=== PATIENT | female | born 1965 | race Caucasian/White ===

== ENCOUNTER 2017-04-07 12:19 | Inpatient (IN) | payer MEDICARE, MEDICAID ==
[2017-04-07 13:06] LABS: #Eosinphils 0.1 thou/uL (0.0-0.7); #Lymphocytes 2.4 thou/uL (1.20-3.40); #Monocytes 0.9 thou/uL (0.11-0.59); #Neutrophils 9.6 thou/uL (1.40-6.50); %Basophils 0.2 % (0.0-1.0); %Eosinophils 0.5 % (0.0-10.0); %Lymphocytes 18.2 % (21.0-51.0); %Monocytes 6.8 % (0.0-10.0); Hematocrit 35.7 % (36.0-47.0); Mean Platelet Volume 7.5 fL (7.4-10.4); Red Blood Cell (RBC) Count 4.12 mill/uL (4.20-5.40); White Blood Cell (WBC) Count 12.9 thou/uL (4.8-10.8)
[2017-04-07] MEDS ORDERED: Ondansetron HCl/PF 4 MG/2 ML Vial ONE (13:16)
[2017-04-07 13:29] LABS: ALT (SGPT) 25 U/L (8-55); AST (SGOT) 18 U/L (5-34); Alkaline Phosphatase 116 U/L (40-150); Anion Gap 17 mmol/L (10-20); BUN (Urea Nitrogen) 18 mg/dL (9.8-20.1); Bilirubin, Total 0.9 mg/dL (0.2-1.2); Calc. Creatinine Clearance 0 mL/min (70-130); Calcium 9.4 mg/dL (7.8-10.44); Carbon Dioxide 17 mmol/L (22-29); Chloride 106 mmol/L (98-107); Estimated GFR-MDRD 36; Globulin 3.2 g/dL (2.4-3.5); Lipase 10 U/L (8-78); Protein, Total 7.2 g/dL (6.0-8.3)
[2017-04-07 13:46] LABS: Bilirubin Negative (Negative); Blood, Urine Large (Negative); Glucose, Urine (Dipstick) 250 mg/dL (Negative); Ketone, Urine 15 mg/dL (Negative); Nitrite Negative (Negative); Protein, Urine (Dipstick) 30 mg/dL (Neg-Trace); Urobilinogen 0.2 mg/dL (0.2-1.0)
[2017-04-07 13:48] LABS: Bacteria/HPF Rare-Few HPF (None Seen); Hyaline Casts/LPF 0-3 HYALINE CAST LPF (0-3 Hyaline); RBC/HPF GREATER THAN 50-TNTC HPF (0-3)
[2017-04-07 14:16] LABS: Lactic Acid - Sepsis 2.4 mmol/L (0.5-2.2)
[2017-04-07] MEDS ORDERED: Lorazepam 2 MG/ML VIAL ONE (14:25)
[2017-04-07] MEDS ORDERED: Sodium Chloride 0.9% 100 ML ONE (14:36)
[2017-04-07] MEDS ORDERED: cefTRIAXone\\ROCEPHIN 2 GM VIAL ONE (14:37)
--- NOTE | 2017-04-07 15:09 | HP ---
PRIMARY CARE PHYSICIAN: [facility]. REASON FOR ADMISSION: Right acute pyelonephritis and sepsis. HISTORY OF PRESENT ILLNESS: A 51-year-old female with a history of diabetes type 2, who presented t o the emergency room with right-sided flank pain. The patient reports that for the last 4 days she was having urinary tract infection symptoms with increased frequency, dysuria. Last night, she was having very difficult urination because of severe burning pain. She started having right-sided flan k pain yesterday, which was rapidly gotten worse. She was also having fever. She was also having n ausea and she had 3 episodes of diarrhea last night. Her pain intensity was getting worse and that is why she decided to come to the emergency room today. In the emergency room, her urinalysis is consistent with urinary tract infection. She had CT stone protocol which showed right-sided mild hydronephrosis and right distal ureteral calcification. The patient was also having low-grade fever and she had lactic acidosis and leukocytosis. The patient w as not able to keep anything down and she was hyperventilating in the emergency room, she was meetin g sepsis criteria and that is why we decided to keep this patient in the hospital for admission. EMERGENCY ROOM COURSE: The patient was given Zofran and IV fluid prior to arrival in the emergency room by paramedics. The patient has received 2 liters of IV fluids. She is getting vancomycin, Helio ephin, Ativan 0.5 mg, and morphine 4 mg x2 dose and 4 mg Zofran was given. REVIEW OF SYSTEMS: The following complete review of systems was negative, unless otherwise mentione d in the HPI or below: Constitutional: Weight loss or gain, ability to conduct usual activities. Skin: Rash, itching. Eyes: Double vision, pain. ENT/Mouth: Nose bleeding, neck stiffness, pain, tenderness. Cardiovascular: Palpitations, dyspnea on exertion, orthopnea. Respiratory: Shortness of breath, wheezing, cough, hemoptysis, fever or night sweats. Gastrointestinal: Poor appetite, abdominal pain, heartburn, nausea, vomiting, constipation, or diar natali. Genitourinary: Urgency, frequency, dysuria, nocturia. Musculoskeletal: Pain, swelling. Neurologic/Psychiatric: Anxiety, depression. Allergy/Immunologic: Skin rash, bleeding tendency. Please see my HPI for pertinent positives and negatives. All other review of system reviewed and ne gative except as mentioned in the HPI. PAST MEDICAL HISTORY: Hypertension, diabetes type 2, hypothyroidism, history of horseshoe kidney, d yslipidemia, and mild asthma. PAST SURGICAL HISTORY: Appendicectomy, hysterectomy, tonsillectomy, and bladder sling surgery x2. PAST PSYCHIATRIC HISTORY: Anxiety and depression. SOCIAL HISTORY: The patient is not working. She is on disability. She drinks alcohol socially. S he denies any smoking. She lives at home by herself. She is . FAMILY HISTORY: No strong family history of premature coronary artery disease, stroke or cancer. ALLERGIES: No known drug allergies. CURRENT HOME MEDICATIONS: Prozac 10 mg p.o. daily, metformin 1000 mg p.o. b.i.d., Novolin 70/30 25 units subcu twice daily, ropinirole 2 mg twice daily, lovastatin 20 mg p.o. at bedtime, Synthroid 10 0 mcg p.o. daily, glipizide 5 mg twice daily, ProAir HFA 2 puffs q.6 hourly p.r.n. PHYSICAL EXAMINATION: VITAL SIGNS: Currently, blood pressure 127/90, pulse 79, respiratory rate 20, temperature 97.6, sat uration 97% on room air, weight 79.8 kilograms. GENERAL: The patient is currently alert, awake, anxious, mild distress due to flank pain. HEENT: Head: Normocephalic and atraumatic. Eyes: Pupils round and reactive to light. Extraocula r muscle intact. ENT: Dry appearing mucous membranes. No oral lesions. No pharyngeal erythema, n o exudate. NECK: Supple. Range of motion is normal. No meningeal signs of irritation, no JVD, no thyromegaly , no carotid bruits. LUNGS: Clear to auscultation without any rhonchi, rales or wheezing. CARDIAC: S1, S2 regular. No murmur, no gallop, no rub. ABDOMEN: The patient does have right-sided flank pain, no peritoneal sign, no guarding, no rigidity , suprapubic discomfort noted, no distention. BACK: Right-sided CVA tenderness. No point tenderness. EXTREMITIES: Upper extremity, passive movements of all joints are normal. Lower extremity, no yassine a. Good peripheral pulsation. SKIN: No skin rash. HEMATOLOGICAL: No lymphadenopathy. PSYCHIATRIC: Normal affect. SIGNIFICANT LABS: CBC: WBC 12.9, hemoglobin 12.1, platelet 291. BMP: Sodium 136, potassium 4.2, chloride 106, carbon dioxide 17, BUN 18, creatinine 1.52, glucose 206, calcium 9.4. Lactic acid 2.4 . LFT: AST 18, ALT 25, alkaline phosphatase 116, albumin 4.0, lipase 10. Urinalysis consistent with urinary tract infection. CT stone protocol reviewed and consistent with right-sided pyelonephritis, right-sided hydronephrosis and right distal ureteral calcification. ASSESSMENT AND PLAN/IMPRESSION: 1. Sepsis with acute organ dysfunction. The patient has leukocytosis, lactic acidosis and acute ki dney failure. Source of infection is urinary tract with pyelonephritis. The patient is receiving R ocephin in the emergency room. We will continue Rocephin after admission and we will add levofloxac in 500 mg IV daily for double coverage. We will also continue pharmacy adjusted vancomycin based on culture and sensitivity result, we will narrow down antibiotic spectrum. The patient will also rec eive IV fluid. 2. Acute kidney failure, likely due to underlying obstructive uropathy as well as sepsis. We will continue with IV fluid. We will consult Urology as well. We will monitor renal function. 3. Right hydronephrosis with right pyelonephritis. The patient does have right-sided horseshoe kid derrick and the patient does have calcification of distal aspect of right ureter. At this point, we martínez l consult Urology for their opinion, the patient will have broad spectrum antibiotic therapy with Ro cephin, Levaquin, and vancomycin and we will change antibiotic therapy based on culture result. 4. Lactic acidosis likely related with part of sepsis. The patient will be given IV fluids and bro ad spectrum antibiotic therapy and we will repeat lactic acid tomorrow. 5. Diabetes type 2. We will continue the regular insulin as per aggressive sliding scale. We will also continue Novolin 70/30 25 units subcu b.i.d., glipizide 5 mg twice daily and metformin 1000 mg p.o. b.i.d. 6. Anxiety and depression. We will continue lorazepam 1 mg q.4 hourly p.r.n. and Prozac 10 mg p.o. daily. 7. Hypothyroidism. We will continue Synthroid 100 mcg p.o. daily. 8. Dyslipidemia. We will continue lovastatin 20 mg p.o. at bedtime. 9. Deep venous thrombosis prophylaxis. Lovenox 30 mg subcutaneously daily. 10. Gastrointestinal prophylaxis. Pepcid 20 mg p.o. b.i.d. 11. Code status: The patient is FULL CODE. The patient does not have surrogate decision maker. S he is making her decisions by herself. Disposition plan based on clinical course. We are expecting patient's stay in hospital more than 2 midnights. Plan of care discussed with the patient in detail.
--- NOTE | 2017-04-07 15:09 | CT ---
CT OF THE ABDOMEN AND PELVIS WITHOUT CONTRAST: Date: 04/07/17 COMPARISON: 12/12/15. HISTORY: Right flank and right lower quadrant abdominal pain. Patient has been unable to void today. TECHNIQUE: Multiple contiguous axial images were obtained in a CT of the abdomen and pelvis without contrast. C oronal reformats were performed. FINDINGS: There is a 1-2 mm calcification in the distal aspect of the right ureter. The patient has a horsesho e kidney and there is moderate hydronephrosis and stranding surrounding the draining ureter of the r ight moiety. No hydronephrosis seen in the left moiety. No other calcifications are seen in the kidn ey. The liver, gallbladder, adrenal glands, spleen, and pancreas are unremarkable, although evaluation i s limited without IV contrast. No free air is seen in the abdomen or pelvis. There is a small amount of free fluid in the right par acolic gutter. The appendix is not definitely seen. No abdominal or pelvic lymphadenopathy seen. Degenerative changes are seen in the spine. The visuali zed inferior thorax and abdominal wall soft tissues are unremarkable. IMPRESSION: 1. Horseshoe kidney. 2. Distal right ureteral calcification with moderate hydronephrosis of the right moiety of the hors eshoe kidney. POS: [facility]
[2017-04-07] MEDS ORDERED: Ondansetron HCl/PF 4 MG/2 ML Vial IVP PRN (15:59)
[2017-04-07] MEDS ORDERED: Ondansetron ODT 4 MG TAB SL PRN (15:59)
[2017-04-07] MEDS ORDERED: Morphine Sulfate 2 MG/ML SYRINGE SLOW IVP PRN (16:00)
[2017-04-07] MEDS ORDERED: Loratadine 10 MG TAB PO PRN (16:17)
[2017-04-07] MEDS ORDERED: Insulin Regular 300 UNITS/3 ML VIAL SC PRN ×2 (16:17)
[2017-04-07] MEDS ORDERED: Milk Of Magnesia 30 ML UDCUP PO PRN (16:17)
[2017-04-07] MEDS ORDERED: Lorazepam 1 MG TAB PO PRN (16:17)
[2017-04-07] MEDS ORDERED: Zolpidem Tartrate 5 MG TAB PO PRN (16:17)
[2017-04-07] MEDS ORDERED: Artificial Tears 18 DROP/0.9 ML EA EYE PRN (16:17)
[2017-04-07] MEDS ORDERED: Dextrose 5% in Water 1,000 ML IV PRN (16:17)
[2017-04-07] MEDS ORDERED: Loperamide HCl 2 MG CAP PO PRN (16:17)
[2017-04-07] MEDS ORDERED: Sodium Chloride 0.65% Nasal 44 ML BOT EA NARE PRN (16:17)
[2017-04-07] MEDS ORDERED: Dextrose 50% Abboject 50 ML SYRINGE SLOW IVP PRN (16:17)
[2017-04-07] MEDS ORDERED: Eucerin (Mineral Oil/Petrolatum,White) 30 gm Jar TOP PRN (16:17)
[2017-04-07] MEDS ORDERED: Ondansetron ODT 4 MG TAB PO PRN (16:17)
[2017-04-07] MEDS ORDERED: Mag-Al 1200 mg/1200 mg/30 ML UDCUP PO PRN (16:17)
[2017-04-07] MEDS ORDERED: Senokot 8.6 MG TAB PO PRN (16:17)
[2017-04-07] MEDS ORDERED: HYDROcodone/Acetaminophen 5/325 mg Tablet PO PRN (16:17)
[2017-04-07] MEDS ORDERED: Diabetic Tussin 200 MG/10 ML UDCUP PO PRN (16:17)
[2017-04-07 16:20] VITALS: BMI 26.7
[2017-04-07] MEDS ORDERED: FLU VACC QS2017-18 36 mo. & older 0.5 ML SYRINGE IM ONE (16:45)
[2017-04-07] MEDS: glipiZIDE 5 MG TAB PO SCH (17:09)
[2017-04-07] MEDS: Sodium Chloride 0.9% 1,000 ML IV SCH ×2 (17:11→17:13)
[2017-04-07] MEDS ORDERED: Vancomycin HCl 750 MG in Sodium Chloride 0.9% 250 ML 250 ML IVPB SCH (18:00)
[2017-04-07] MEDS: Famotidine 20 MG TAB PO SCH (21:08)
[2017-04-07] MEDS: rOPINIRole HCl 2 MG TAB PO SCH (21:08)
[2017-04-07] MEDS: Insulin NPH/Reg Insulin Hm 300 UNITS/3 ML VIAL SC SCH (21:16)
[2017-04-07] MEDS: Acetaminophen 325 MG TAB PO PRN (23:28)
[2017-04-08] MEDS: Sodium Chloride 0.9% 1,000 ML IV SCH ×4 (01:50→23:08)
[2017-04-08] MEDS: Vancomycin HCl 750 MG in Sodium Chloride 0.9% 250 ML 250 ML IVPB SCH ×2 (01:58→15:37)
[2017-04-08 06:17] LABS: #Eosinphils 0.1 thou/uL (0.0-0.7); #Lymphocytes 2.7 thou/uL (1.20-3.40); #Monocytes 0.6 thou/uL (0.11-0.59); #Neutrophils 4.4 thou/uL (1.40-6.50); %Basophils 0.5 % (0.0-1.0); %Eosinophils 1.9 % (0.0-10.0); %Lymphocytes 34.4 % (21.0-51.0); %Monocytes 7.1 % (0.0-10.0); Hematocrit 29.7 % (36.0-47.0); Mean Platelet Volume 7.4 fL (7.4-10.4); White Blood Cell (WBC) Count 7.8 thou/uL (4.8-10.8)
[2017-04-08 06:25] LABS: Anion Gap 12 mmol/L (10-20); BUN (Urea Nitrogen) 14 mg/dL (9.8-20.1); Calc. Creatinine Clearance 55 mL/min (70-130); Calcium 8.2 mg/dL (7.8-10.44); Carbon Dioxide 22 mmol/L (22-29); Chloride 109 mmol/L (98-107); Estimated GFR-MDRD 36
[2017-04-08] MEDS: Levothyroxine Sodium 100 MCG TAB PO SCH (06:27)
[2017-04-08] MEDS: glipiZIDE 5 MG TAB PO SCH ×2 (08:16→17:22)
[2017-04-08] MEDS: FLUoxetine HCl 10 MG CAP PO SCH (08:17)
[2017-04-08] MEDS: Enoxaparin Sodium 30 MG/0.3 ML SYRINGE SC SCH (08:17)
[2017-04-08] MEDS: Famotidine 20 MG TAB PO SCH ×2 (08:17→20:28)
[2017-04-08] MEDS: Acetaminophen 325 MG TAB PO PRN ×2 (08:18→20:28)
[2017-04-08] MEDS: Insulin NPH/Reg Insulin Hm 300 UNITS/3 ML VIAL SC SCH ×2 (08:18→20:28)
[2017-04-08] MEDS: Saccharomyces boulardii 250 MG CAP PO SCH (08:18)
[2017-04-08] MEDS: rOPINIRole HCl 2 MG TAB PO SCH ×2 (08:18→20:27)
--- NOTE | 2017-04-08 11:06 | PDOC.PN ---
- Subjective Encounter Start Date: 04/08/17 Encounter Start Time: 08:50 Subjective: mild suprapubic and right lumbar area pain, no nausea -: says the pain is better than yesterday -: no nausea - Objective Resuscitation Status: Resuscitation Status FULL:Full Resuscitation MAR Reviewed: Yes Vital Signs & Weight: Vital Signs (12 hours) Temp Pulse Resp BP BP Pulse Ox 04/08/17 08:00 97.7 F 74 18 118/78 96 04/08/17 00:00 98.1 F 79 18 109/71 95 I&O: 04/07/17 04/08/17 04/09/17 06:59 06:59 06:59 Intake Total 1450 Output Total 1700 Balance -250 Result Diagrams: 04/08/17 04:20 04/08/17 04:20 Additional Labs: Accuchecks 04/08/17 04/07/17 05:08 21:11 POC Glucose 122 H 88 Phys Exam - Physical Examination HEENT: PERRLA, moist MMs Neck: no JVD, supple Respiratory: no wheezing, no rales Cardiovascular: RRR, no significant murmur Gastrointestinal: soft, no distention, positive bowel sounds Musculoskeletal: no edema, pulses present Neurological: non-focal, moves all 4 limbs Psychiatric: A&O x 3 Dx/Plan (1) UTI (urinary tract infection) Status: Acute Qualifiers: Urinary tract infection type: acute pyelonephritis Qualified Code(s): N10 - Acute pyelonephritis (2) Sepsis Code(s): A41.9 - SEPSIS, UNSPECIFIED ORGANISM Status: Acute Qualifiers: Sepsis type: sepsis due to unspecified organism Qualified Code(s): A41.9 - Sepsis, unspecified organism (3) Horseshoe kidney Code(s): Q63.1 - LOBULATED, FUSED AND HORSESHOE KIDNEY Status: Chronic Comment: congenital (4) DM type 2 (diabetes mellitus, type 2) Status: Chronic Qualifiers: Diabetes mellitus complication status: with unspecified complications Diabetes mellitus halfway insulin use: with halfway use Qualified Code(s) : E11.8 - Type 2 diabetes mellitus with unspecified complications; Z79.4 - 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 technician (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 insulin; Z79.4 - termite technician (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 insulin; Z79.4 - FPC (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 insulin; Z79.4 - FPC (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 insulin (5) HTN (hypertension) Code(s): I10 - ESSENTIAL (PRIMARY) HYPERTENSION Status: Chronic Qualifiers: Hypertension type: essential hypertension Qualified Code(s): I10 - Essential (primary) hypertension (6) Dyslipidemia Code(s): E78.5 - HYPERLIPIDEMIA, UNSPECIFIED Status: Chronic (7) Hypothyroidism Code(s): E03.9 - HYPOTHYROIDISM, UNSPECIFIED Status: Chronic Qualifiers: Hypothyroidism type: unspecified Qualified Code(s): E03.9 - Hypothyroidism , unspecified (8) Anemia Code(s): D64.9 - ANEMIA, UNSPECIFIED Status: Chronic - Plan mild miki, resolving -: is on broad spectum antibiotics, levaq, ceftr and vanc -: may rapidly de-escalate based on cultures -: has mod right hydro with congenital horseshoe kidney, ?Jayce to see pt -: gentle hydration, to amb in hallway, await cultures * . Review of Systems - Medications/Allergies Allergies/Adverse Reactions: Allergies Allergy/AdvReac Type Severity Reaction Status Date / Time No Known Allergies Allergy Unverified 12/26/16 17:49 Medications: Current Medications Acetaminophen (Tylenol) 650 mg PO Q4H PRN PRN Reason: Headache/Fever or Pain Last Admin: 04/08/17 08:18 Dose: 650 mg Hydrocodone Bitart/Acetaminophen ([place] 5/325) 1 tab PO Q4H PRN PRN Reason: Moderate Pain (4-6) Al Hydroxide/Mg Hydroxide (Maalox) 30 ml PO Q6H PRN PRN Reason: Heartburn or Indigestion Artificial Tears (Tears Naturale) 0 drop EA EYE PRN PRN PRN Reason: Dry Eyes Dextrose/Water (Dextrose 50%) 25 gm SLOW IVP PRN PRN PRN Reason: Hypoglycemia Enoxaparin Sodium (Lovenox) 30 mg SC 0900 [facility] Last Admin: 04/08/17 08:17 Dose: 30 mg Famotidine (Pepcid) 20 mg PO BID [facility] Last Admin: 04/08/17 08:17 Dose: 20 mg Fluoxetine HCl (Prozac) 10 mg PO DAILY [facility] Last Admin: 04/08/17 08:17 Dose: 10 mg Glipizide (Glucotrol) 5 mg PO BID-AC [facility] Last Admin: 04/08/17 08:16 Dose: 5 mg Glucagon (Glucagon) 1 mg IM PRN PRN PRN Reason: Hypoglycemia Guaifenesin (Robitussin Sf) 200 mg PO Q4H PRN PRN Reason: Cough Hydralazine HCl (Apresoline) 10 mg SLOW IVP Q4H PRN PRN Reason: Systolic BP > 180 Dextrose/Water (D5w) 1,000 mls @ 0 mls/hr IV .Q0M PRN; As Directed PRN Reason: Hypoglycemia Levofloxacin 500 mg/ Device 100 mls @ 100 mls/hr IVPB 1800 [facility] Last Admin: 04/07/17 17:13 Dose: 100 mls Sodium Chloride (Normal Saline 0.9%) 1,000 mls @ 100 mls/hr IV .Q10H [facility] Last Admin: 04/08/17 01:50 Dose: 1,000 mls Ceftriaxone Sodium 1 gm/ (Sodium Chloride) 100 mls @ 200 mls/hr IVPB 1400 [facility] Vancomycin HCl 750 mg/ Sodium (Chloride) 250 mls @ 250 mls/hr IVPB 0200,1400 [facility] Last Admin: 04/08/17 01:58 Dose: 250 mls Insulin Human Isoph/Insulin Regular (Humulin 70/30) 25 units SC BID [facility] Last Admin: 04/08/17 08:18 Dose: Not Given Insulin Human Regular (Humulin R) 0 units SC .MODERATE SLIDING SC PRN PRN Reason: Moderate Correctional Scale Insulin Human Regular (Humulin R) 0 units SC .BEDTIME SLIDING SC PRN PRN Reason: Bedtime Correctional Scale Levothyroxine Sodium (Synthroid) 100 mcg PO 0600 [facility] Last Admin: 04/08/17 06:27 Dose: 100 mcg Loperamide HCl (Imodium) 2 mg PO PRN PRN PRN Reason: Diarrhea/Loose Stools Loratadine (Claritin) 10 mg PO DAILYPRN PRN PRN Reason: Sinus Symptoms Lorazepam (Ativan) 1 mg PO Q4H PRN PRN Reason: Anxiety/Agitation Magnesium Hydroxide (Milk Of Magnesium) 30 ml PO DAILYPRN PRN PRN Reason: Constipation Metformin HCl (Glucophage) 1,000 mg PO BID-[facility] Last Admin: 04/08/17 08:16 Dose: 1,000 mg Mineral Oil/White Petrolatum (Eucerin Cream) 0 gm TOP BIDPRN PRN PRN Reason: Dry Skin Miscellaneous Medication (Pharmacy To Dose) 1 each IVPB ONE PRN PRN Reason: Pharmacy to dose Stop: 05/07/17 16:18 Morphine Sulfate (Morphine Sulfate) 2 mg SLOW IVP Q4H PRN PRN Reason: Moderate Pain (4-6) Morphine Sulfate (Morphine Sulfate) 4 mg SLOW IVP Q4H PRN PRN Reason: Severe Pain (7-10) Last Admin: 04/07/17 19:22 Dose: 4 mg Morphine Sulfate (Morphine Sulfate) 4 mg SLOW IVP Q4H PRN PRN Reason: Pain Ondansetron HCl (Zofran Odt) 4 mg PO Q6H PRN PRN Reason: Nausea/Vomiting Ondansetron HCl (Zofran) 4 mg IVP Q6H PRN PRN Reason: Nausea/Vomiting Ropinirole HCl (Requip) 2 mg PO BID [facility] Last Admin: 04/08/17 08:18 Dose: 2 mg Saccharomyces Boulardii (Florastor) 250 mg PO DAILY [facility] Last Admin: 04/08/17 08:18 Dose: 250 mg Senna (Senokot) 2 tab PO HSPRN PRN PRN Reason: Constipation Sodium Chloride (Mauldin Nasal [place] 0.65%) 0 ml EA NARE QIDPRN PRN PRN Reason: Nasal Congestion Zolpidem Tartrate (Ambien) 5 mg PO HSPRN PRN PRN Reason: Insomnia
--- NOTE | 2017-04-08 13:45 | PRG ---
DATE OF SERVICE: 04/08/2017 The patient reports that she just passed her stone visualization into the urine hat. It demonstrate d there does appear to be a 1-2 mm calculus within the urinary hat. This was strained and palpated and found to be a hard substance consistent with ureteral stone. This will be sent for stone analys is. I will cancel her cystoscopy and ureteral stent placement. Resume her diet and plan for BMP an d CBC in the morning. If her creatinine has improved and white count is normal, she can be discharg ed once her urine culture finalizes and she can go home on antibiotics. If creatinine remains eleva gasper, white count goes up, or patient has a fever, we will get a CT scan to see if the stone is still present.
[2017-04-08] MEDS ORDERED: cefTRIAXone\\ROCEPHIN 1 GM in Sodium Chloride 0.9% 100 ML IVPB SCH (14:00)
--- NOTE | 2017-04-08 15:04 | CON ---
DATE OF CONSULTATION: 04/08/2017 CONSULTING SERVICE: [facility] Medicine. CONSULTED PHYSICIAN: Dr. Oleksandr Eduardo with Urology. REASON FOR CONSULTATION: Hydronephrosis and ureteral stone. HISTORY OF PRESENT ILLNESS: Mrs. Grier is a 51-year-old white female with a history of diabetes, who presented to the emergency room with right-sided flank pain. She stated that she began having sympt oms of urinary tract infection around of this week characterized by urgency, frequency, and dysuria. She began taking [id number] Azo with cranberry juice, but did not have any signific ant improvement in her symptoms. She began having severe pain on Sunday, characterized by 8/10 ri ght flank pain with associated nausea and vomiting. She began having chills and subjective fevers, but never took her temperature. Her fever broke subsequently, but due to the persisting pain, she w as brought into the emergency room on Sunday, at which time she underwent a CT scan with labs. Kelsy ludwig was found to have an elevated lactate and elevated white count with concerns for sepsis. A CT sca n demonstrated a 1 to 2 mm distal right ureteral stone with associated moderate hydronephrosis and h orseshoe kidney and concerning signs for urinary tract infection. She was started on Rocephin and v ancomycin, and admitted to the hospital for treatment of her sepsis. I was not notified on that day , but I have only been notified of her admission today, at which time I have come to see her. On my discussion with the patient, she states that she does not have a history of prior kidney stones. S he has known that she has horseshoe kidney. She normally does not have a lot of problems with urina ry infections all the time, but has had a few in the past. She denies any significant voiding issue s. She did have associated gross hematuria, but has not had this problem previously. Currently, kelsy ludwig states she is feeling a lot better when she came into the hospital. Her pain has not completely l et up and she still has some suprapubic discomfort and slight right-sided flank pain, but it is curr ently only a 2-3/10. Her white count has decreased some, but her creatinine remains elevated at 1.5 3. ALLERGIES: None. CURRENT HOME MEDICATIONS: 1. Prozac. 2. Metformin. 3. Novolin insulin. 4. Ropinirole. 5. Lovastatin. 6. Synthroid. 7. Glipizide. 8. ProAir. PAST MEDICAL HISTORY: 1. Hypertension. 2. Type 2 diabetes. 3. Hypothyroidism. 4. Horseshoe kidney. 5. Dyslipidemia. 6. Asthma. PAST SURGICAL HISTORY: 1. Appendectomy. 2. Hysterectomy. 3. Tonsillectomy. 4. Bladder sling surgery x2. SOCIAL HISTORY: The patient currently is not working. She says she is on disability. She drinks a lcohol only socially. Denies smoking and denies any illicit drug use. She lives at home alone and is . FAMILY HISTORY: There is no significant history for coronary artery disease, stroke or cancers or a mt history of nephrolithiasis. REVIEW OF SYSTEMS: A 12-point review of systems is currently unremarkable for any concerning signs or symptoms. Specifically, she denies any current nausea or vomiting. She does have slight flank p ain, but no fevers or chills. No current hematuria, still has some suprapubic tenderness. Denies a ny chest pain, shortness of breath, lower extremity swelling. Remainder of review of systems is rev iewed and otherwise negative. PHYSICAL EXAMINATION: VITAL SIGNS: Currently, temperature 97.7, pulse 74, respirations 18, blood pressure 118/78, saturat ion 96% on room air. GENERAL: No apparent distress, communicative and alert, appears stated age, well-nourished, well-de veloped. HEENT: Normocephalic, atraumatic. Sclerae are nonicteric. Pupils are symmetric and round. Extrao cular movements are intact. Trachea is midline. Moist mucous membranes. CARDIOVASCULAR: Regular rate and rhythm. Normal S1 and S2. Symmetric pulses. CHEST: No increased work of breathing. Symmetric expansion of lungs, clear anteriorly. ABDOMEN: Soft, nondistended, mild tenderness to palpation suprapubically and slightly in the right lower quadrant. No significant CVA tenderness, which may be related to the fact that she has a hors eshoe kidney. Positive bowel sounds. No organomegaly. No rebound or guarding. GENITOURINARY: Deferred at this time. EXTREMITIES: No clubbing, cyanosis or edema. MUSCULOSKELETAL: No joint deformities or joint erythema noted. Full range of motion in all extremi ties. SKIN: Warm, dry, good turgor, no rashes. NEUROLOGIC: Cranial nerves II through XII grossly intact. No focal or sensory motor deficits ident ified. PSYCHIATRIC: Alert and oriented x3, appropriate mood and affect. LABORATORY AND X-RAY FINDINGS: The full set of labs are in the [facility] system, which I have review ed. Of note, the white count has decreased from 12.9, down to 7.8; hemoglobin is currently 9.7; cre atinine is currently 1.53, elevated from 1.52. Lactate previously was 2.4, it is now 1.6. Urinalys is demonstrates 250 glucose, 30 protein, large blood, small leukocyte esterase, nitrite negative, gr eater than 50 red cells, 7 to 10 white cells, 11 to 10 squamous cells and rare to few bacteria. A CT report from 04/07/2017 demonstrates a horseshoe kidney with distal right ureteral calcification with moderate hydronephrosis in the right moiety of a horseshoe kidney with associated periureteral stranding and perinephric stranding on the right moiety. No hydronephrosis in the left moiety and there are no calcifications noted within either kidney. ASSESSMENT AND PLAN: A 51-year-old white female with a history of diabetes and likely urinary tract infection with early sepsis and associated right distal ureteral stone. She still has an acute kid derrick injury based on labs this morning with her creatinine being slightly worse, although she has imp roved from a sepsis standpoint. I do believe the antibiotics have helped significantly, but given t hat she has a persistent acute kidney injury and likely has not passed her stone given that she is s till having some pain in the right side, I would strongly recommend urgent placement of a ureteral s tent to avoid a relapse of infection and worsening sepsis as well as resolution of her acute kidney injury. I have discussed ureteral stenting with the patient along with associated risks and benefit s. The risks which include but are not limited to bleeding; worsening infection; damage to the uret er, bladder or urethra; inability to place the stent and need for further procedures such as nephros kourtney tube. She understands these risks and wishes to proceed forward with ureteral stenting. Given that she is not currently in an emergent nature and did eat breakfast this morning, we will delay h er case until the afternoon, at which time we will take her down for a ureteral stent. If she does spike a fever, then she will need to go emergently to the OR for emergent stenting at that time. SUMMARY OF RECOMMENDATIONS: 1. N.p.o. now. 2. Continue IV fluids. 3. Continue IV antibiotics. 4. Pain medications as needed. 5. To operating room this afternoon for cystoscopy and right ureteral stent placement. 6. 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
[2017-04-08] MEDS: Ondansetron HCl/PF 4 MG/2 ML Vial IVP PRN (21:52)
[2017-04-09 01:27] LABS: Vancomycin, Trough 9.8 ug/mL
[2017-04-09] MEDS ORDERED: Vancomycin HCl 1 GM in Premix Bag 1 BAG IVPB SCH (02:00)
[2017-04-09] MEDS: Levothyroxine Sodium 100 MCG TAB PO SCH (05:37)
[2017-04-09 05:51] LABS: #Eosinphils 0.2 thou/uL (0.0-0.7); #Monocytes 0.5 thou/uL (0.11-0.59); #Neutrophils 3.4 thou/uL (1.40-6.50); %Basophils 0.2 % (0.0-1.0); %Eosinophils 3.2 % (0.0-10.0); %Lymphocytes 33.1 % (21.0-51.0); Hematocrit 29.2 % (36.0-47.0); Mean Platelet Volume 7.8 fL (7.4-10.4); Red Blood Cell (RBC) Count 3.26 mill/uL (4.20-5.40)
[2017-04-09 06:20] LABS: Anion Gap 12 mmol/L (10-20); BUN (Urea Nitrogen) 9 mg/dL (9.8-20.1); Calc. Creatinine Clearance 86 mL/min (70-130); Calcium 8.9 mg/dL (7.8-10.44); Carbon Dioxide 24 mmol/L (22-29); Chloride 106 mmol/L (98-107); Estimated GFR-MDRD 61
[2017-04-09 07:47] VITALS: TEMP 97.7
[2017-04-09] MEDS: rOPINIRole HCl 2 MG TAB PO SCH (08:31)
[2017-04-09] MEDS: glipiZIDE 5 MG TAB PO SCH (08:31)
[2017-04-09] MEDS: Famotidine 20 MG TAB PO SCH (08:31)
[2017-04-09] MEDS: Insulin NPH/Reg Insulin Hm 300 UNITS/3 ML VIAL SC SCH (08:31)
[2017-04-09] MEDS: Enoxaparin Sodium 30 MG/0.3 ML SYRINGE SC SCH ×2 (08:31→08:35)
[2017-04-09] MEDS: FLUoxetine HCl 10 MG CAP PO SCH (08:31)
[2017-04-09] MEDS: Saccharomyces boulardii 250 MG CAP PO SCH (08:32)
--- NOTE | 2017-04-09 08:49 | PRG ---
DATE OF SERVICE: 04/09/2017 SUBJECTIVE: The patient states that she is feeling better today. She still has some mild soreness in the suprapubic area, but otherwise denies any severe flank pain, nausea, vomiting, fevers or chil ls or severe right-sided flank pain. Of note, she recalls she did pass her stone yesterday. OBJECTIVE: VITAL SIGNS: Temperature 97.7, pulse 69, respirations 18, blood pressure 130/75, saturation 98% on room air. GENERAL: No apparent distress. CARDIOVASCULAR: Regular rate and rhythm. CHEST: No increased work of breathing. LUNGS: Clear anteriorly. ABDOMEN: Soft, nondistended, mild suprapubic tenderness. No flank tenderness. Positive bowel soun ds. EXTREMITIES: No clubbing, cyanosis or edema. LABORATORY DATA: The full set of labs are in the [employer] system, which I have reviewed. Of note, the patient's white count has decreased further to 6.0. Creatinine is further reduced back to nathaniel l at 0.97. Blood cultures are negative bilaterally. I do not have the results of any urine culture findings. ASSESSMENT AND PLAN: A 51-year-old white female with a right-sided 1 mm ureteral stone with associa gasper urinary tract infection/pyelonephritis and early sepsis with spontaneous passage of her stone. With continued antibiotics she has now fully recovered from a laboratory standpoint and is feeling s ignificantly better. I suspect her mild soreness is still due to residual urinary tract inflammatio n from her prior infection and stone. Given that her labs are normalized and her pain is minimal, I think that she should be fine from our standpoint to be discharged when appropriate from the medica l team. I will go ahead and sign off on this case and I have told her that followup can be done p.r .n. with me. If she elects to follow up for stone metabolic workup, she can do so and I have provi ded my card, but this is not necessary. SUMMARY OF RECOMMENDATIONS: 1. Would continue oral antibiotics for 7-10 days for presumed complicated urinary tract infection v ersus early sepsis. 2. Can be discharged from primary team when appropriate. 3. Followup with me can be p.r.n.
[2017-04-09] MEDS: Ondansetron HCl/PF 4 MG/2 ML Vial IVP PRN (09:19)
[2017-04-09 11:26] VITALS: BP 150/88
--- NOTE | 2017-04-09 13:17 | DIS ---
DATE OF ADMISSION: 04/07/2017 DATE OF DISCHARGE: 04/09/2017 PRIMARY CARE PHYSICIAN: Arleen Rios N.P. DISCHARGE DISPOSITION: Home. PRIMARY DISCHARGE DIAGNOSES: 1. Sepsis, resolved. 2. Acute kidney failure, improved. 3. Acute pyelonephritis. 4. Acute unilateral obstructive uropathy. 5. Right hydronephrosis. SECONDARY DISCHARGE DIAGNOSES: Anemia, anxiety and depression, diabetes type 2, dyslipidemia, horse shoe kidney, and hypothyroidism. PRIMARY PROCEDURE/OPERATION: None. RADIOLOGICAL INVESTIGATION: Abdomen and pelvis CT scan showed ureterolithiasis. SIGNIFICANT LABORATORY DATA: WBC 6.0, hemoglobin 10.0, platelets 187. Sodium 138, potassium 3.7, B UN 9, creatinine 0.97, calcium 8.9. Blood culture negative. Urine culture was not done. DISCHARGE MEDICATIONS: Cipro 500 mg p.o. b.i.d. for 10 days, Florastor 250 mg p.o. daily, Prozac 10 mg p.o. daily, Novolin 70/30 25 units subcu b.i.d., Synthroid 100 mcg p.o. daily, lovastatin 20 mg p.o. at bedtime, glipizide ER 5 mg p.o. b.i.d., metformin 1 gram p.o. b.i.d., Requip 2 mg p.o. at b edtime. CONTRAINDICATIONS: None. CODE STATUS: FULL CODE. INPATIENT EXTRACTION SUPERVISOR: Dr. Eduardo was following while in hospital. TEST RESULTS PENDING ON DISCHARGE: None. ALLERGIES: No known drug allergies. DISCHARGE PLAN: Patient will follow up with Dr. Eduardo as indicated. The patient will make appointment with primary care physician in 1 week. HOSPITAL COURSE: A 51-year-old female who presented to the hospital with right-sided flank and back pain. She was also having UTI symptoms. She was having difficulty urination as well. She had CT stone protocol which showed right distal ureter calcification with right hydronephrosis. Patient al so has lactic acidosis. She was admitted to medical floor for sepsis. She was also having acute ki dney failure. The patient's acute kidney failure was related with post-obstructive etiology. We co nsulted Dr. Eduadro. Dr. Eduardo was trying to do cystoscopy and stent placement, but luckily this patient passed her stone and her stone was sent for pathology report, but Pathology report of stone is pending. After passing stone, patient's symptoms completely improved. She was afebrile. Her cultures remain negative. Unfortunately, urine culture was not obtained from emergency room, but based on previous culture and sensitivity result, we changed to oral Cipro therapy. At this time, patient is complet yobany asymptomatic. Her pain is well controlled. We are discharging this patient and she will follow up with primary care physician. Urology also cleared for discharge. The patient is seen and examined at bedside today. PHYSICAL EXAMINATION: VITAL SIGNS: Currently, temperature 97.7, pulse 75, respiratory rate 16, saturation 99%, blood pres sure 150/88, weight 176 pounds. GENERAL: The patient is currently alert, awake, no acute distress. HEAD: Normocephalic, atraumatic. LUNGS: Clear. CARDIAC: S1, S2 regular without any murmur. ABDOMEN: Soft and benign. EXTREMITIES: No edema. NEUROLOGIC: Nonfocal examination. Overall, this patient is medically stable for discharge today.
== END 2017-04-09 11:36 | disposition home or self-care (01) | DRG 872 ==
LOC: ERS 12:19 → T4-A 16:09
PROVIDERS: ADMIT Internal Medicine; ATTEND Internal Medicine
DX: A41.9 Sepsis, unspecified organism (principal); E87.2 Acidosis; N17.9 Acute kidney failure, unspecified; N13.6 Pyonephrosis; D64.9 Anemia, unspecified; E11.9 Type 2 diabetes mellitus without complications; F41.9 Anxiety disorder, unspecified; F32.9 Major depressive disorder, single episode, unspecified; E03.9 Hypothyroidism, unspecified; Z79.4 Long term (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 insulin; E78.5 Hyperlipidemia, unspecified; Q63.1 Lobulated, fused and horseshoe kidney; R31.0 Gross hematuria; Z23 Encounter for immunization
CPT/HCPCS: 36415; 36416; 74176; 80048; 80053; 80202; 81003; 81015; 82365; 83605; 83690; 85025; 87040; 88300; 90471; 90682; 90732; 96361; 96365; 96375; 96376; G0008; G0009; J0696; J1650; J1956; J2060; J2270; J2405; J3370; J7050; Q2036

== ENCOUNTER 2017-07-11 11:34 | Outpatient (CLI) | payer MEDICARE, MEDICAID ==
[2017-07-11 13:21] LABS: #Basophils 0.1 thou/uL (0.0-0.2); #Eosinphils 0.2 thou/uL (0.0-0.7); #Lymphocytes 4.7 thou/uL (1.20-3.40); #Monocytes 0.8 thou/uL (0.11-0.59); #Neutrophils 4.6 thou/uL (1.40-6.50); %Basophils 0.8 % (0.0-1.0); %Eosinophils 1.5 % (0.0-10.0); %Lymphocytes 45.4 % (21.0-51.0); %Neutrophils 44.2 % (42.0-75.0); Hemoglobin 11.9 g/dL (12.0-16.0); Mean Corpuscular HGB CONC 33.1 g/dL (32.0-36.0); Mean Corpuscular Hemoglobin 28.3 pg (27.0-31.0); Mean Corpuscular Volume 85.3 fl (81.0-99.0); Mean Platelet Volume 7.5 fL (7.4-10.4); Platelet Count 271 thou/uL (130-400); RBC Distribution Width 12.7 % (11.5-14.5); White Blood Cell (WBC) Count 10.4 thou/uL (4.8-10.8)
[2017-07-11 13:56] LABS: ALT (SGPT) 64 U/L (8-55); AST (SGOT) 43 U/L (5-34); Albumin 4.4 g/dL (3.5-5.0); Alkaline Phosphatase 118 U/L (40-150); Anion Gap 13 mmol/L (10-20); BUN (Urea Nitrogen) 18 mg/dL (9.8-20.1); Bilirubin, Total 0.4 mg/dL (0.2-1.2); Calc. Creatinine Clearance 0 mL/min (70-130); Calcium 9.7 mg/dL (7.8-10.44); Carbon Dioxide 25 mmol/L (22-29); Chloride 104 mmol/L (98-107); Estimated GFR-MDRD 68; Globulin 3.2 g/dL (2.4-3.5); Glucose 89 mg/dL (70-105); Potassium 3.8 mmol/L (3.5-5.1); Protein, Total 7.6 g/dL (6.0-8.3); Sodium 138 mmol/L (136-145)
--- NOTE | 2017-07-12 00:54 | EKG ---
Test Reason : Blood Pressure : / mmHG Vent. Rate : 082 BPM Atrial Rate : 082 BPM P-R Int : 136 ms QRS Dur : 090 ms QT Int : 406 ms P-R-T Axes : 052 052 009 degrees QTc Int : 474 ms Normal sinus rhythm Normal ECG When compared with ECG of 17-JAN-2013 16:17, Inverted T waves have replaced nonspecific T wave abnormality in Inferior leads Nonspecific T wave abnormality now evident in Anterior leads Confirmed by NIALL MELENDEZ, SJono ([id number]) on 07/12/2017 12:53:57 AM Referred By: MARISEL Confirmed By:DR. Luan TIERNEY MD
== END 2017-07-11 11:35 | disposition home or self-care (01) ==
LOC: LABBT 11:34
PROVIDERS: ATTEND Surgery
DX: Z01.818 Encounter for other preprocedural examination (principal); K43.9 Ventral hernia without obstruction or gangrene
CPT/HCPCS: 80053; 85025; 93005; 93010

== ENCOUNTER 2017-07-16 06:14 | Inpatient (IN) | payer MEDICARE, MEDICAID ==
[2017-07-11 12:07] VITALS: BMI 28.5
[2017-07-16] MEDS ORDERED: Bupivacaine 0.25% HCL 30 ML VIAL ONE (06:41)
[2017-07-16] MEDS ORDERED: Lidocaine 1% w/Epinephrine 1:200K 30 ML VIAL ONE (06:41)
[2017-07-16] MEDS ORDERED: Fentanyl 100 MCG/2 ML VIAL ONE ×3 (06:55→10:14)
[2017-07-16] MEDS ORDERED: CEFAZOLIN/Water 2 GM/20 ML SYRINGE ONE (06:55)
[2017-07-16] MEDS ORDERED: Midazolam HCl 2 mg/2 ml Vial ONE ×2 (06:55)
[2017-07-16] MEDS ORDERED: Meperidine HCl/PF 25 MG/ML VIAL SLOW IVP PRN (07:21)
[2017-07-16] MEDS ORDERED: Promethazine HCl 25 MG/ML VIAL SLOW IVP PRN (07:21)
[2017-07-16] MEDS ORDERED: Fentanyl 5000 MCG/250 ML CADD IVPB PRN ×2 (07:58→09:50)
[2017-07-16] MEDS ORDERED: Naloxone HCl 0.4 mg/ml Vial IV PRN ×2 (07:58→09:48)
[2017-07-16] MEDS ORDERED: diphenhydrAMINE 25 MG CAP PO PRN ×2 (07:58→09:48)
[2017-07-16] MEDS ORDERED: Ondansetron HCl/PF 4 MG/2 ML Vial IVP PRN ×3 (07:58→09:48)
[2017-07-16] MEDS ORDERED: Promethazine HCl 25 MG/ML VIAL IM PRN ×3 (07:58→09:48)
[2017-07-16] MEDS ORDERED: diphenhydrAMINE 50 MG/ML VIAL IM PRN ×2 (07:58→09:48)
[2017-07-16] MEDS ORDERED: Zolpidem Tartrate 5 MG TAB PO PRN ×2 (07:58→09:48)
[2017-07-16] MEDS ORDERED: Communication Order-Pharmacy FS SCH ×2 (08:00→10:00)
[2017-07-16] MEDS ORDERED: hydrALAZINE 20 MG/ML VIAL SLOW IVP PRN (09:16)
[2017-07-16] MEDS ORDERED: Dextrose 50% Abboject 50 ML SYRINGE SLOW IVP PRN (09:16)
[2017-07-16] MEDS ORDERED: Dextrose 5% in Water 1,000 ML IV PRN (09:16)
--- NOTE | 2017-07-16 09:41 | OP ---
PREOPERATIVE DIAGNOSIS: Ventral hernia. SURGEON: Chin Cortés M.D. PROCEDURE PERFORMED: Laparoscopic rectus plication with ventral hernia repair with mesh. INDICATIONS: This is a 52-year-old female who has a painful bulge in the epigastrium and desired rep air. FINDINGS: She had an epigastric ventral hernia with a diastasis of the recti. Plication of the uppe r abdomen and rectus with 0 V-Loc PDS, a 5 x 7 inch piece of Proceed mesh used to reinforce this area . PROCEDURE IN DETAIL: After informed consent was obtained, the patient was taken to the operating dinorah m and given general endotracheal anesthesia. She was placed in the supine/spread leg position. Her abdomen was prepped and draped in the usual fashion. Local anesthesia infiltrated subcutaneously and deep. A 5 mm incision was performed in the left lower quadrant. Veress needle inserted. Drop test performed. Pneumoperitoneum was created to a volume of 2 liters of carbon dioxide. Utilizing a bayron deless 5 mm trocar and 0 degree laparoscope direct vision into the abdominal cavity was performed. P neumoperitoneum was created to a pressure of 15 mmHg. Under direct vision, a 5 mm port was placed in the right lower quadrant and another one was placed just to the left of the midline in the lower abd omen, this was a 12. Patient placed in reverse Trendelenburg position and laparoscopic lysis of adhe sions was performed utilizing the LigaSure, then the falciform ligament was taken down with the LigaS ure, then utilizing the 0 V-Loc barbed suture, the rectus was plicated from just below the xiphoid to the umbilicus. Once the plication was performed, a 5 x 7 inch mesh was used to reinforce the area. This was prepared by placing 0 Ethibond sutures of alternating green and white color in total of 8 s pots around the mesh. The mesh was hydrated, inserted intra-abdominally and then unrolled and then u sing the GraNee needle, the mesh was positioned optimally to cover the defect. These sutures were th en tied down and the mesh was further secured to the abdominal wall with the SecureStrap Tacker. Hem ostasis was assured. Trocars and retractors removed. The skin incisions were then closed with inter rupted 4-0 Vicryl and then Dermabond applied. Abdominal binder was then used. Patient tolerated the procedure well and transferred to recovery in good condition. Sponge and needle count verified maikel ect x2.
[2017-07-16] MEDS ORDERED: diphenhydrAMINE 50 MG/ML VIAL IVP PRN (09:48)
[2017-07-16] MEDS: D5 1/2 NS w/20 mEq KCL 1,000 ML IV SCH ×2 (12:04→17:42)
[2017-07-16] MEDS: Ketorolac Tromethamine 30 MG/ML VIAL IVP SCH ×3 (12:49→23:43)
[2017-07-16] MEDS ORDERED: cefOXitin 2 GM in Sodium Chloride 0.9% 100 ML IVPB SCH (14:00)
[2017-07-16] MEDS: cefOXitin 2 GM, Syringe 1 ML in Sterile Water 10 ML SLOW IVP SCH ×2 (14:36→21:29)
[2017-07-16] MEDS ORDERED: Dexamethasone 20 MG/5 ML VIAL ONE (15:47)
[2017-07-16] MEDS ORDERED: Lidocaine 1% PF 5 ML VIAL ONE (15:47)
[2017-07-16] MEDS ORDERED: Propofol 200 MG/20 ML VIAL ONE (15:47)
[2017-07-16] MEDS ORDERED: Glycopyrrolate 0.2 MG/ML 5 ML SYRINGE ONE (15:47)
[2017-07-16] MEDS ORDERED: PHENYLEPHRINE-NS 100 MCG/ML 10 ML SYRINGE ONE (15:47)
[2017-07-16] MEDS ORDERED: Ondansetron HCl/PF 4 MG/2 ML Vial ONE (15:47)
[2017-07-16] MEDS: diphenhydrAMINE 50 MG/ML VIAL IVP PRN (21:30)
[2017-07-16] MEDS: Famotidine 20 MG TAB PO SCH (21:30)
[2017-07-16] MEDS: Famotidine/PF 20 mg/2ml Vial SLOW IVP SCH (23:13)
[2017-07-17] MEDS: diphenhydrAMINE 50 MG/ML VIAL IVP PRN ×2 (03:05→08:08)
[2017-07-17] MEDS: D5 1/2 NS w/20 mEq KCL 1,000 ML IV SCH ×3 (03:09→21:36)
[2017-07-17 05:33] LABS: #Eosinphils 0.1 thou/uL (0.0-0.7); #Lymphocytes 2.9 thou/uL (1.20-3.40); #Monocytes 0.8 thou/uL (0.11-0.59); #Neutrophils 7.2 thou/uL (1.40-6.50); %Basophils 0.2 % (0.0-1.0); %Eosinophils 0.9 % (0.0-10.0); %Lymphocytes 26.6 % (21.0-51.0); %Neutrophils 65.3 % (42.0-75.0); Hemoglobin 9.9 g/dL (12.0-16.0); Mean Corpuscular HGB CONC 32.7 g/dL (32.0-36.0); Mean Corpuscular Hemoglobin 28.5 pg (27.0-31.0); Mean Corpuscular Volume 87.3 fl (81.0-99.0); Platelet Count 203 thou/uL (130-400); RBC Distribution Width 12.9 % (11.5-14.5); Red Blood Cell (RBC) Count 3.45 mill/uL (4.20-5.40)
[2017-07-17 06:02] LABS: Anion Gap 13 mmol/L (10-20); BUN (Urea Nitrogen) 18 mg/dL (9.8-20.1); Calc. Creatinine Clearance 73 mL/min (70-130); Calcium 8.9 mg/dL (7.8-10.44); Carbon Dioxide 22 mmol/L (22-29); Chloride 103 mmol/L (98-107); Estimated GFR-MDRD 49; Glucose 292 mg/dL (70-105); Sodium 133 mmol/L (136-145)
[2017-07-17] MEDS: cefOXitin 2 GM, Syringe 1 ML in Sterile Water 10 ML SLOW IVP SCH ×3 (06:48→23:37)
[2017-07-17] MEDS: Ketorolac Tromethamine 30 MG/ML VIAL IVP SCH ×4 (06:48→23:37)
[2017-07-17] MEDS: Enoxaparin Sodium 40 MG/0.4 ML SYRINGE SC SCH (08:07)
[2017-07-17] MEDS: Famotidine/PF 20 mg/2ml Vial SLOW IVP SCH ×2 (08:08→23:35)
[2017-07-17] MEDS: Famotidine 20 MG TAB PO SCH ×2 (08:08→19:54)
[2017-07-17] MEDS ORDERED: DC PCA Order Set 1 EACH FS ONE (08:11)
[2017-07-17] MEDS ORDERED: Fentanyl 100 MCG/2 ML VIAL SLOW IVP PRN (08:11)
[2017-07-17] MEDS ORDERED: HYDROcodone/Acetaminophen 10/325 mg Tablet PO PRN (08:11)
--- NOTE | 2017-07-17 14:01 | PRG ---
DATE OF SERVICE: 07/17/2017 HISTORY OF PRESENT ILLNESS: The patient is still having quite a bit of pain now that her PACKAGING MACHINE SUPPLIES DISTRIBUTOR has bee n removed. The oral pain meds are not controlling her pain, so she will need to stay another day. S he also was still unable to void on her own and had to have a catheter placed. We now have that in a nd she feels a little better from that. She has a history of obstructive uropathy and was supposed t o see a urologist down stairs, but never made it to see them. She denies nausea or vomiting. PHYSICAL EXAMINATION: VITAL SIGNS: Afebrile, pulse 70, blood pressure 130/85. GENERAL: She looks okay. She is uncomfortable. The incisions are clean and dry. Normal tenderness. I&O, she had 1350 out urine. LABORATORY: Her creatinine is 1.17, BUN of 18, glucose 292. IMPRESSION: 1. Poor pain control. 2. Urinary retention. 3. Diabetes. PLAN: Sliding scale insulin. Urology consult. We will keep the Alcala in and keep her another day f or pain control.
[2017-07-17] MEDS: Insulin Regular 300 UNITS/3 ML VIAL SC PRN ×2 (14:15→19:57)
[2017-07-17] MEDS: HYDROcodone/Acetaminophen 10/325 mg Tablet PO PRN (19:55)
[2017-07-18] MEDS: diphenhydrAMINE 50 MG/ML VIAL IVP PRN ×3 (00:43→09:23)
[2017-07-18] MEDS: HYDROcodone/Acetaminophen 10/325 mg Tablet PO PRN ×2 (00:43→06:20)
[2017-07-18] MEDS: cefOXitin 2 GM, Syringe 1 ML in Sterile Water 10 ML SLOW IVP SCH ×2 (06:19→14:21)
[2017-07-18] MEDS: Ketorolac Tromethamine 30 MG/ML VIAL IVP SCH ×2 (06:20→11:53)
[2017-07-18] MEDS: Insulin Regular 300 UNITS/3 ML VIAL SC PRN ×2 (06:21→14:24)
[2017-07-18] MEDS: D5 1/2 NS w/20 mEq KCL 1,000 ML IV SCH (06:30)
[2017-07-18] MEDS: Enoxaparin Sodium 40 MG/0.4 ML SYRINGE SC SCH (09:21)
[2017-07-18] MEDS: Famotidine 20 MG TAB PO SCH (09:22)
[2017-07-18] MEDS: Famotidine/PF 20 mg/2ml Vial SLOW IVP SCH (09:22)
--- NOTE | 2017-07-18 12:14 | CON ---
DATE OF CONSULTATION: 07/18/2017 CONSULTING PHYSICIAN: Dr. Cortés REASON FOR CONSULTATION: Urinary retention. HISTORY OF PRESENT ILLNESS: Ms. Grier is a 52-year-old white female who I had previously seen for uret eral stone and urinary tract infection. She had passed that stone and was discharged home. She rece ntly came to the hospital for an elective ventral hernia repair with Dr. Cortés. The surgery went wel l, but unfortunately postoperatively the patient was not able to urinate. I have been consulted for further assistance in her urinary retention. Postoperatively, the patient was on a MEMBER SERVICE SPECIALIST for pain cont rol. She did use her MEMBER SERVICE SPECIALIST quite extensively, but has subsequently been weaned off. She has not had a bowel movement since her surgery and is passing gas. She is starting to ambulate, but was not ambul ating much previously. She is also a diabetic and does have peripheral neuropathy. At baseline, she does not complain of any significant voiding dysfunction or voiding problems. She does not have any hematuria and does not have an issue with recurring stones, but did have the one stone previously. S he does have a known history of a horseshoe kidney. ALLERGIES: None. CURRENT HOME MEDICATIONS: 1. Prozac. 2. Metformin. 3. Novolin. 4. Ropinirole. 5. Lovastatin. 6. Synthroid. 7. Glipizide. 8. ProAir. PAST MEDICAL HISTORY: 1. Hypertension. 2. Type 2 diabetes. 3. Hypothyroidism. 4. Horseshoe kidney. 5. Dyslipidemia. 6. Asthma. 7. Nephrolithiasis. PAST SURGICAL HISTORY: 1. Appendectomy. 2. Hysterectomy. 3. Tonsillectomy. 4. Bladder sling surgery x2. 5. Recent ventral hernia repair on 07/16/2017. FAMILY HISTORY: Noncontributory for nephrolithiasis or other urinary problems. SOCIAL HISTORY: The patient is not working currently. She is on Disability. She drinks alcohol soc ially only. Denies any illicit drug use and denies smoking. She lives at home and is currently divo rced. REVIEW OF SYSTEMS: A 12 point review of systems is unremarkable other than what was commented on the HPI. Specifically, she is currently constipated, but otherwise has no constitutional symptoms, naus ea, vomiting, and her abdominal pain is currently controlled. PHYSICAL EXAMINATION: VITAL SIGNS: Temperature 98.3, pulse 70, respirations 19, blood pressure 143/89, saturation 97% on r oom air. GENERAL: No apparent distress, communicative, alert, well-nourished, well-developed. Appears stated age. HEENT: Normocephalic, atraumatic. Sclerae are nonicteric. Pupils are symmetric and round. Moist m ucous membranes. Hearing good. Trachea midline. CARDIOVASCULAR: Regular rate and rhythm. Normal S1 and S2. Symmetric pulses. CHEST: No increased work of breathing. Symmetric expansion of the lungs. Clear to auscultation kye aterally. ABDOMEN: Soft. Appropriately tender to palpation, nondistended. Incisions clean, dry, and intact. Positive bowel sounds. No organomegaly. GENITOURINARY: Alcala catheter in place, secured with clear yellow urine in the drainage bag. EXTREMITIES: No clubbing, cyanosis or edema. MUSCULOSKELETAL: No joint deformities or joint erythema noted. Full range of motion. NEUROLOGIC: Cranial nerves II-XII appear grossly intact. No focal or sensory motor deficits identif ied. The patient does have a pins and needles type tingling sensation in the lower extremities. SKIN: Warm, dry, no rashes, good turgor. PSYCHIATRIC: Alert and oriented x3, appropriate mood and affect. LABORATORY AND X-RAY FINDINGS: The full set of labs is in the [employer] system, which I have reviewed . Of note, the patient's hemoglobin is 9.9 with a white count of 11, creatinine is currently 1.17 wi th a sodium of 133. ASSESSMENT AND PLAN: A 52-year-old white female with urinary retention, likely multifactorial in guera ology. The patient does have a bladder sling and is currently constipated, both of which increased r esistance for her urethra. Additionally, she has likely baseline diabetic neuropathy to her bladder along with recent narcotic administration with a MEMBER SERVICE SPECIALIST, recent general anesthesia and decreased ambulat ion, all of which can contribute to decreased bladder contractility. These two factors together is pr obably why she cannot urinate. I would not recommend attempt at a voiding trial, currently until she has had majority of these factors resolved. I advised her that she should keep her Alcala catheter i n which she is fine with. I will plan to see her in the office next week for a voiding trial after w hich time I can manage her on an outpatient basis. In the interim, I had recommended that she ambula te as much as possible, attempt to decrease her narcotic pain usage when appropriate, ensure that she is taking something to help her bowel movements and we will see how she does at the time voiding tri al early next week. From my standpoint, she can be discharged when appropriate by Dr. Cortés.
[2017-07-18] MEDS ORDERED: PROVENTIL INHALER 6.7 G (200 INHALATIONS) INH SCH (12:30)
[2017-07-18 13:13] VITALS: BP 145/91; TEMP 97.9
[2017-07-18] MEDS ORDERED: rOPINIRole HCl 1 MG TAB PO SCH (15:00)
[2017-07-18] MEDS ORDERED: Gabapentin 300 MG CAP PO SCH (15:00)
--- NOTE | 2017-07-18 15:45 | DIS ---
DISCHARGE DIAGNOSIS: Ventral hernia, diabetes, postop urinary retention. HOSPITAL COURSE: The patient was admitted, taken to the operating room where she underwent a laparos copic repair of ventral hernia with mesh. Postoperatively, she had difficulty emptying her bladder, had to have the I and O cath'ed, eventually had to have a catheter left in place. Urology was consul gasper, but we are going to try and get her and to see them in the office. She is discharged home on he r usual medications with the addition of hydrocodone and Zofran. She will follow up with me in 2 wee ks.
[2017-07-18] MEDS ORDERED: metFORMIN 500 MG TAB PO SCH (17:00)
[2017-07-19] MEDS ORDERED: Levothyroxine 150 MCG TAB PO SCH (06:00)
[2017-07-19] MEDS ORDERED: glipiZIDE 5 MG TAB PO SCH (07:30)
[2017-07-19] MEDS ORDERED: FLUoxetine HCl 20 MG CAP PO SCH (09:00)
== END 2017-07-18 14:56 | disposition home or self-care (01) | DRG 353 ==
LOC: SDC 06:14 → SURG A 10:59
PROVIDERS: ADMIT Surgery; ATTEND Surgery
PROC: 0WUF4JZ Supplement Abdominal Wall with Synthetic Substitute, Percutaneous Endoscopic Approach (ICD-10-PCS; principal; 2017-07-16)
DX: K43.9 Ventral hernia without obstruction or gangrene (principal); Q79.59 Other congenital malformations of abdominal wall; R33.9 Retention of urine, unspecified; E11.9 Type 2 diabetes mellitus without complications; N99.89 Other postprocedural complications and disorders of genitourinary system; I10 Essential (primary) hypertension; Q63.1 Lobulated, fused and horseshoe kidney; K59.00 Constipation, unspecified; E03.9 Hypothyroidism, unspecified
CPT/HCPCS: 36415; 36416; 80048; 85025; A4216; J0694; J1100; J1200; J1650; J1815; J1885; J2001; J2250; J2405; J2704; J3010; S0020

== ENCOUNTER 2017-08-02 21:00 | Inpatient (IN) | payer MEDICARE, MEDICAID ==
[~2017-08-02 21:00] MED LIST: ISOVUE-370 76%-LOCM 1 ML ONE
[2017-08-02 21:27] LABS: Bilirubin Small (Negative); Blood, Urine Large (Negative); Clarity CLOUDY (Clear); Glucose, Urine (Dipstick) Negative (Negative); Leukocyte Moderate (Negative); Nitrite Negative (Negative); Pregnancy Test - Urine (BHCG) Negative (Negative); Pregu Control Background? CLEAR/WHITE (CLR/WHITE); Pregu Control Bar Appear? YES (CONTROL BAR); Protein, Urine (Dipstick) 100 mg/dL (Neg-Trace); Specific Gravity 1.027 (1.002-1.036); Specific Gravity, Urine 1.027 (1.002-1.036); Urobilinogen 0.2 mg/dL (0.2-1.0)
[2017-08-02 21:29] LABS: Bacteria/HPF 2+ HPF (None Seen); Hyaline Casts/LPF 4-6 HYALINE CAST LPF (0-3 Hyaline); Pathc Cast-AUWi Flag 0.89 (0-2.49); RBC/HPF GREATER THAN 50-TNTC HPF (0-3); Squamous Epithelial 0-3 HPF (0-3); WBC/HPF 21-50 HPF (0-3)
[2017-08-02 21:34] LABS: #Basophils 0.1 thou/uL (0.0-0.2); #Eosinphils 0.2 thou/uL (0.0-0.7); #Lymphocytes 3.3 thou/uL (1.20-3.40); #Monocytes 0.9 thou/uL (0.11-0.59); #Neutrophils 8.2 thou/uL (1.40-6.50); %Basophils 0.5 % (0.0-1.0); %Eosinophils 1.6 % (0.0-10.0); %Lymphocytes 26.4 % (21.0-51.0); %Monocytes 6.7 % (0.0-10.0); %Neutrophils 64.8 % (42.0-75.0); Hemoglobin 10.7 g/dL (12.0-16.0); Mean Corpuscular HGB CONC 33.9 g/dL (32.0-36.0); Mean Corpuscular Hemoglobin 28.7 pg (27.0-31.0); Mean Corpuscular Volume 84.8 fl (81.0-99.0); Mean Platelet Volume 7.2 fL (7.4-10.4); Platelet Count 331 thou/uL (130-400); RBC Distribution Width 12.2 % (11.5-14.5); Red Blood Cell (RBC) Count 3.73 mill/uL (4.20-5.40); White Blood Cell (WBC) Count 12.7 thou/uL (4.8-10.8)
[2017-08-02 21:58] LABS: ALT (SGPT) 34 U/L (8-55); AST (SGOT) 32 U/L (5-34); Albumin 4.1 g/dL (3.5-5.0); Alkaline Phosphatase 157 U/L (40-150); Anion Gap 17 mmol/L (10-20); BUN (Urea Nitrogen) 18 mg/dL (9.8-20.1); Bilirubin, Total 0.4 mg/dL (0.2-1.2); Calc. Creatinine Clearance 0 mL/min (70-130); Calcium 9.6 mg/dL (7.8-10.44); Carbon Dioxide 25 mmol/L (22-29); Chloride 102 mmol/L (98-107); Estimated GFR-MDRD 71; Globulin 3.8 g/dL (2.4-3.5); Glucose 151 mg/dL (70-105); Potassium 3.8 mmol/L (3.5-5.1); Protein, Total 7.9 g/dL (6.0-8.3); Sodium 140 mmol/L (136-145)
--- NOTE | 2017-08-02 22:42 | CT ---
CT ABDOMEN AND PELVIS WITH CONTRAST: 08/02/17 Multiple tomograms obtained through the abdomen and pelvis with IV enhancement. HISTORY: Abdominal pain. History of hernia repair two weeks ago. Tenderness and erythema at the surgical site x2 days. Comparison made to CT abdomen and pelvis of 04/07/17. FINDINGS: There is enlargement of the rectus abdominis muscle superiorly suggesting intramuscular hematoma. There is a circumscribed fluid dense collection just beneath the abdominal Wall in the upper abdomen in the midline measuring 5 cm AP dimension x 12 cm width which would be con cerning for a confined hematoma. There is another small collection adjacent to the anterior abdominal wall on the left measuring 1.5 cm and a third just lateral measuring 2.0 cm. These changes are super ior to the umbilicus. If this is the site of prior surgical procedure, these findings probably repres ent postoperative hematomas. This large circumscribed hematoma/fluid collection produces mass effect on the left lobe of the liver compressing the anterior aspect o the left lobe of the liver. Liver, spleen, pancreas otherwise unremarkable. Horseshoe kidneys have been previously described. The re is no hydronephrosis or urinary tract calculus seen. Bowel loops are unremarkable. IMPRESSION: Evidence of thickening of the rectus abdominis muscles above the umbilicus worrisome for intramuscula r hemorrhage. There is a large confined fluid dense collection along the posterior surface of anterio r abdominal wall with dimensions given above. This produces mass effect on the left lobe of the liver . There are two other small fluid dense collections along the border of the anterior abdominal wall to the left of midline as noted above. POS: DEE
[2017-08-02] MEDS ORDERED: metroNIDAZOLE 500 MG/100 ML BAG ONE (23:33)
[2017-08-03] MEDS ORDERED: Ondansetron HCl/PF 4 MG/2 ML Vial IVP PRN (01:49)
[2017-08-03] MEDS: Fentanyl 100 MCG/2 ML VIAL SLOW IVP PRN ×4 (01:58→19:44)
[2017-08-03] MEDS: Sodium Chloride 0.9% 1,000 ML IV SCH ×3 (01:58→20:03)
[2017-08-03] MEDS: diphenhydrAMINE 50 MG/ML VIAL IVP PRN ×5 (01:59→22:19)
[2017-08-03] MEDS: Piperacillin/Tazobactam 3.375 GM in Sodium Chloride 0.9% 100 ML IVPB SCH ×4 (03:04→21:07)
[2017-08-03 07:30] VITALS: BMI 28.8
[2017-08-03] MEDS ORDERED: Dextrose 50% Abboject 50 ML SYRINGE SLOW IVP PRN (07:52)
[2017-08-03] MEDS ORDERED: Dextrose 5% in Water 1,000 ML IV PRN (07:52)
--- NOTE | 2017-08-03 08:06 | HP ---
CHIEF COMPLAINT: Epigastric pain. HISTORY OF PRESENT ILLNESS: A 52-year-old female, she underwent a laparoscopic ventral hernia repair with mesh on 07/16/2017. She was doing well and postoperatively she had urinary retention. She has also had frequent UTIs and pyelonephritis. She reports that over the last 3 days, she has had incre ased abdominal pain in the epigastric region especially when she walks. She says this is about 8/10. No fever, chills. PAST MEDICAL HISTORY: Asthma, diabetes, hypothyroidism, back problems, pyelonephritis. PAST SURGICAL HISTORY: Tonsillectomy and adenoidectomy, appendectomy, colonoscopy, hysterectomy, tra nsvaginal mesh, oophorectomy and the recent hernia repair. FAMILY HISTORY: Diabetes, Alzheimer's, lung cancer. SOCIAL HISTORY: She is single. No tobacco, occasional alcohol. PHYSICAL EXAMINATION: VITAL SIGNS: Temperature 98.7, pulse 76, blood pressure 103/66. GENERAL: She is awake and alert. She is reporting to be hungry. LUNGS: Clear. HEART: Regular rate and rhythm. ABDOMEN: Soft. She is tender in the epigastrium. She has a faint amount of erythema just above the umbilicus. It is very tender in that region. She has good bowel sounds. EXTREMITIES: Unremarkable. LABORATORY DATA AND X-RAY FINDINGS: White count 12.7, H&H is 10 and 31, platelet count 331. CT scan shows a 5 x 12 cm fluid collection consistent with a hematoma in that surgical area just subfascial. She has too numerous to count red cells and 21-50 white cells in the urine. Electrolytes, her gluc ose is 151, otherwise unremarkable. ASSESSMENT: Postoperative hematoma versus seroma, possibly could be getting an early infection, itz zamora has a urinary tract infection. PLAN: Antibiotics, Urology consultation. We will try abdominal binder.
--- NOTE | 2017-08-03 10:37 | CON ---
DATE OF CONSULTATION: 08/03/2017 CONSULTING PHYSICIAN: Dr. Cortés. CONSULTED PHYSICIAN: Oleksandr Eduardo M.D. REASON FOR CONSULTATION: Gross hematuria. HISTORY OF PRESENT ILLNESS: Mrs. Grier is a 52-year-old white female who has a history of mid urethral sling and a recent ventral hernia repair by Dr. Cortés. She had postoperative urinary retention and required going home with the catheter. She was able to successfully pass a voiding trial on followup with me in the office and was scheduled to come back in 2 months for a flow and scan. Unfortunately , she began having significant abdominal pain with malaise and fatigue. As the symptoms worsened, kelsy ludwig came back to the emergency room last night where she underwent a CT scan which demonstrated that kelsy ludwig had thickening of the rectus abdominis muscle worrisome for intramuscular hemorrhage and possible h ematoma. She was admitted to the hospital for monitoring and management. prior to coming into the ospital, she had gross hematuria which had occurred about 2 days before for admission. She stated th ere was some discomfort in her suprapubic area at that time, but no dysuria. The hematuria cleared u p after approximately 24-36 hours and is currently now clear. She currently denies any dysuria, urge ncy, frequency or difficulty with urination. She did not have any difficulty with urination and has not had any since her voiding trial a few weeks ago. Urinalysis was taken in the emergency room whic h is reported below. Culture is unknown whether it was taken or not at that time, but she is current ly on Zosyn for possible infection of this hematoma which has developed on her abdomen. ALLERGIES: None. HOME MEDICATIONS: 1. Prozac. 2. Metformin. 3. Novolin. 4. Ropinirole. 5. Lovastatin. 6. Synthroid. 7. Glipizide. 8. ProAir. PAST MEDICAL HISTORY: 1. Hypertension. 2. Type 2 diabetes. 3. Hypothyroidism. 4. Horseshoe kidney. 5. Dyslipidemia. 6. Asthma. 7. Stress incontinence. 8. Nephrolithiasis. PAST SURGICAL HISTORY: 1. Appendectomy. 2. Hysterectomy. 3. Tonsillectomy. 4. Bladder sling surgery x2. 5. Ventral hernia repair on 07/16/2017. FAMILY HISTORY: Noncontributory. SOCIAL HISTORY: Patient is currently not working and is on disability. She drinks alcohol socially only. Denies illicit drug use. Denies smoking and lives at home. REVIEW OF SYSTEMS: A 12 point review of systems is unremarkable other than what was commented in the HPI. Specifically, she denies chest pain, shortness of breath, nausea or vomiting. Urinary symptom s are reported above. Remainder of 12 point review of systems is reviewed and is otherwise negative. PHYSICAL EXAMINATION: VITAL SIGNS: Temperature 98.2, pulse 80, respirations 16, blood pressure 122/79, saturation 96% on r oom air. GENERAL: No apparent distress, communicative, alert, well-nourished, well-developed, appears stated age. HEENT: Normocephalic, atraumatic. Sclerae are nonicteric. Pupils are symmetric and round. Extraoc ular movements intact. Moist mucous membranes. Good dentition. Trachea midline. CARDIOVASCULAR: Regular rate and rhythm. Normal S1 and S2, symmetric pulses in upper and lower extr emities. CHEST: No increased work of breathing. Symmetric expansion of lungs. Clear to auscultation anterio rly. ABDOMEN: Soft, tender to palpation. Abdominal binder is currently in place. Incision appears to be healing well. Positive bowel sounds. GENITOURINARY: Exam is deferred at this time. EXTREMITIES: No clubbing, cyanosis or edema. MUSCULOSKELETAL: No joint deformities or joint erythema noted. No inflammation of the hands. Full range of motion. NEUROLOGIC: Cranial nerves II-XII appear grossly intact. No focal motor or sensory deficits identif ied. SKIN: Warm, dry, good turgor, no rashes or lesions. PSYCHIATRIC: Alert and oriented x3, appropriate mood and affect. LABORATORY DATA AND X-RAY FINDINGS: On laboratory evaluation, a full set of labs are in the [facility] system, which I have reviewed. Of note, white count is 12.7 with hemoglobin of 10.7. Creatinine is currently 0.84. Urinalysis demonstrates large blood with greater than 50, too numerous to count red cells, 21-50 white cells, 2+ bacteria, moderate leukocyte esterase and nitrite negative. Again, uri ne culture is unknown whether it was taken and pending or never taken. CT from the emergency room de monstrates thickening of the rectus abdominis muscle above the umbilicus worrisome for intramuscular hemorrhage. There is a large confined fluid dense collection along the posterior surface of the ante rior abdominal wall which produces a mass effect on the left lobe of the liver and there are two othe r small fluid collections along the border of the anterior abdominal wall to the left of midline. Th ere is no hydronephrosis of the horseshoe kidney or any urinary tract calculi noted. The bladder dottie ears relatively unremarkable. ASSESSMENT AND PLAN: A 52-year-old white female with history of mid urethral sling and prior urinary retention with gross hematuria which most likely is secondary to a urinary tract infection given the urinalysis findings. Given the presence of blood during an infection, I would not necessarily state that she needs a workup unless the hematuria persists after treatment of her antibiotics. It alread y appears that her hematuria has resolved at this point. If her hematuria recurs or she has no evide nce of infection based on the urine culture which finalizes and she had hematuria, then a cystoscopy will be warranted as an outpatient. Otherwise, I do not see any need for any further workup in the h ospital at this time and she can follow up as scheduled in 2 months for her flow and scan. If there is any concern about the need for cystoscopy based on lack of evidence of a urinary tract infection o r recurrent hematuria, then we will plan for an outpatient cystoscopy once she is discharged from the hospital. I will sign off for now. Please reconsult if there are any further questions.
[2017-08-03] MEDS ORDERED: HYDROcodone/Acetaminophen 10/325 mg Tablet PO PRN (11:59)
[2017-08-03] MEDS: Insulin Regular 300 UNITS/3 ML VIAL SC PRN ×2 (12:19→16:04)
[2017-08-03] MEDS: HYDROcodone/Acetaminophen 10/325 mg Tablet PO PRN ×2 (13:56→22:18)
[2017-08-03] MEDS: metFORMIN 500 MG TAB PO SCH (15:58)
[2017-08-03] MEDS: Fish Oil 1,000 MG CAP PO SCH (21:07)
[2017-08-03] MEDS: Insulin NPH/Reg Insulin Hm 300 UNITS/3 ML VIAL SC SCH (21:07)
[2017-08-03] MEDS: Simvastatin 5 MG TAB PO SCH (21:08)
[2017-08-03] MEDS: Gabapentin 400 MG CAP PO SCH (21:08)
[2017-08-03] MEDS: rOPINIRole HCl 2 MG TAB PO SCH (21:08)
[2017-08-04] MEDS: diphenhydrAMINE 50 MG/ML VIAL IVP PRN ×4 (03:53→21:07)
[2017-08-04] MEDS: HYDROcodone/Acetaminophen 10/325 mg Tablet PO PRN ×4 (03:54→21:06)
[2017-08-04] MEDS: Piperacillin/Tazobactam 3.375 GM in Sodium Chloride 0.9% 100 ML IVPB SCH ×4 (03:55→21:07)
[2017-08-04] MEDS: Sodium Chloride 0.9% 1,000 ML IV SCH ×3 (04:20→21:05)
[2017-08-04 04:45] LABS: #Basophils 0.1 thou/uL (0.0-0.2); #Eosinphils 0.3 thou/uL (0.0-0.7); #Monocytes 0.6 thou/uL (0.11-0.59); %Basophils 0.9 % (0.0-1.0); %Eosinophils 3.4 % (0.0-10.0); %Monocytes 6.6 % (0.0-10.0); %Neutrophils 56.1 % (42.0-75.0); Hemoglobin 9.9 g/dL (12.0-16.0); Mean Corpuscular HGB CONC 33.8 g/dL (32.0-36.0); Mean Corpuscular Hemoglobin 29.2 pg (27.0-31.0); Mean Corpuscular Volume 86.5 fl (81.0-99.0); Mean Platelet Volume 7.6 fL (7.4-10.4); Platelet Count 281 thou/uL (130-400); RBC Distribution Width 12.2 % (11.5-14.5); Red Blood Cell (RBC) Count 3.38 mill/uL (4.20-5.40)
[2017-08-04] MEDS: Levothyroxine Sodium 100 MCG TAB PO SCH (05:52)
[2017-08-04] MEDS: Lisinopril 5 MG TAB PO SCH (07:40)
[2017-08-04] MEDS: FLUoxetine HCl 20 MG CAP PO SCH (07:40)
[2017-08-04] MEDS: metFORMIN 500 MG TAB PO SCH ×2 (07:40→17:07)
[2017-08-04] MEDS: Gabapentin 300 MG CAP PO SCH (07:41)
[2017-08-04] MEDS: Folic Acid/Vit B Comp W-C PO SCH (07:41)
[2017-08-04] MEDS: Insulin NPH/Reg Insulin Hm 300 UNITS/3 ML VIAL SC SCH ×2 (07:42→21:34)
[2017-08-04] MEDS: PROVENTIL INHALER 6.7 G (200 INHALATIONS) INH SCH (14:44)
[2017-08-04] MEDS: Insulin Regular 300 UNITS/3 ML VIAL SC PRN (17:08)
[2017-08-04] MEDS: Gabapentin 400 MG CAP PO SCH (21:06)
[2017-08-04] MEDS: Simvastatin 5 MG TAB PO SCH (21:09)
[2017-08-04] MEDS: Fish Oil 1,000 MG CAP PO SCH (21:09)
[2017-08-04] MEDS: rOPINIRole HCl 2 MG TAB PO SCH (21:10)
[2017-08-05] MEDS: Sodium Chloride 0.9% 1,000 ML IV SCH (03:27)
[2017-08-05] MEDS: HYDROcodone/Acetaminophen 10/325 mg Tablet PO PRN ×3 (03:47→14:49)
[2017-08-05] MEDS: diphenhydrAMINE 50 MG/ML VIAL IVP PRN ×2 (03:48→08:02)
[2017-08-05] MEDS: Piperacillin/Tazobactam 3.375 GM in Sodium Chloride 0.9% 100 ML IVPB SCH ×2 (03:48→09:22)
[2017-08-05] MEDS: Levothyroxine Sodium 100 MCG TAB PO SCH (06:05)
[2017-08-05] MEDS ORDERED: Clopidogrel Bisulfate 75 MG TAB ONE (06:38)
[2017-08-05] MEDS: Gabapentin 300 MG CAP PO SCH (08:00)
[2017-08-05] MEDS: Lisinopril 5 MG TAB PO SCH (08:00)
[2017-08-05] MEDS: FLUoxetine HCl 20 MG CAP PO SCH (08:01)
[2017-08-05] MEDS: metFORMIN 500 MG TAB PO SCH (08:02)
[2017-08-05] MEDS: Insulin NPH/Reg Insulin Hm 300 UNITS/3 ML VIAL SC SCH (08:02)
[2017-08-05] MEDS: Folic Acid/Vit B Comp W-C PO SCH (08:02)
[2017-08-05] MEDS: PROVENTIL INHALER 6.7 G (200 INHALATIONS) INH SCH (13:31)
[2017-08-05 16:46] VITALS: BP 129/66; TEMP 98.3
--- NOTE | 2017-08-05 23:47 | DIS ---
DISCHARGE DIAGNOSES: 1. Urinary tract infection. 2. Subfascial hematoma. PROCEDURES DURING ADMISSION: CT scan of abdomen and pelvis, IV antibiotics. HOSPITAL COURSE: The patient was admitted. Initial CT scan showed this hematoma under the mesh of r ecent ventral hernia repair. She was also found to have a UTI. She had an elevated white count. Laney ludwig was started on antibiotics. She responded very quickly with her white count coming back to normal suggesting that this hematoma was not infected. It was not appearing to be infected on CT. She is t olerating a regular diet. Bowels are functioning well. She is voiding well. She is discharged home on hydrocodone and Bactrim. She will follow up with me in 2 weeks.
== END 2017-08-05 17:03 | disposition home or self-care (01) | DRG 690 ==
LOC: ERS 21:00 → SJJU 08-03 00:58
PROVIDERS: ADMIT Surgery; ATTEND Surgery
DX: N39.0 Urinary tract infection, site not specified (principal); L76.32 Postprocedural hematoma of skin and subcutaneous tissue following other procedure; E03.9 Hypothyroidism, unspecified; E11.9 Type 2 diabetes mellitus without complications; J45.909 Unspecified asthma, uncomplicated; Y83.8 Other surgical procedures as the cause of abnormal reaction of the patient, or of later complication, without mention of misadventure at the time of the procedure; I10 Essential (primary) hypertension; E78.5 Hyperlipidemia, unspecified
CPT/HCPCS: 36415; 36416; 74177; 80053; 81003; 81015; 81025; 85025; 96361; 96365; 96375; A4216; J0696; J1200; J1815; J1956; J2405; J2543; J3010; J7050

== ENCOUNTER 2017-09-15 11:40 | Emergency (ER) | payer MEDICARE, MEDICAID ==
[2017-09-15 13:06] LABS: Bilirubin Negative (Negative); Blood, Urine Negative (Negative); Clarity CLEAR (Clear); Glucose, Urine (Dipstick) Negative (Negative); Leukocyte Negative (Negative); Nitrite Negative (Negative); Protein, Urine (Dipstick) Trace mg/dL (Neg-Trace); Specific Gravity, Urine 1.026 (1.002-1.036); Urobilinogen 0.2 mg/dL (0.2-1.0); pH, Urine 5.5 (5.0-9.0)
== END 2017-09-15 13:50 | disposition home or self-care (01) ==
LOC: ERS 11:40
DX: J40 Bronchitis, not specified as acute or chronic (principal); E11.9 Type 2 diabetes mellitus without complications; E03.9 Hypothyroidism, unspecified; E78.5 Hyperlipidemia, unspecified; F41.9 Anxiety disorder, unspecified; F32.9 Major depressive disorder, single episode, unspecified
CPT/HCPCS: 81003; 87081; 87430; 99283

== ENCOUNTER 2017-09-26 13:48 | Inpatient (IN) | payer MEDICARE, MEDICAID ==
[~2017-09-26 13:48] MED LIST changes: -ISOVUE-370 76%-LOCM 1 ML ONE; +Lidocaine 1% PF 5 ML VIAL ONE; +Ondansetron HCl/PF 4 MG/2 ML Vial ONE; +PHENYLEPHRINE-NS 100 MCG/ML 10 ML SYRINGE ONE; +PROPOFOL 200 MG/20 ML VIAL ONE; +Succinylcholine Chloride 20 MG/ML 10 ml SYRINGE FS ONE; +diphenhydrAMINE 50 MG/ML VIAL ONE
[2017-09-26 14:26] LABS: Blood, Urine Large (Negative); Clarity TURBID (Clear); Leukocyte Small (Negative); Nitrite Negative (Negative); Protein, Urine (Dipstick) 100 mg/dL (Neg-Trace); Specific Gravity, Urine 1.027 (1.002-1.036); Urobilinogen 0.2 mg/dL (0.2-1.0)
[2017-09-26 14:31] LABS: Bacteria/HPF None Seen HPF (None Seen); Hyaline Casts/LPF 0-3 HYALINE CAST LPF (0-3 Hyaline); Pathc Cast-AUWi Flag 0.45 (0-2.49); RBC/HPF GREATER THAN 50-TNTC HPF (0-3); Squamous Epithelial 0-3 HPF (0-3)
[2017-09-26 14:44] LABS: Bilirubin Unable to Interpret (Negative); Glucose, Urine (Dipstick) Unable to Interpret mg/dL (Negative)
[2017-09-26 15:16] LABS: #Basophils 0.1 thou/uL (0.0-0.2); #Eosinphils 0.4 thou/uL (0.0-0.7); #Lymphocytes 4.1 thou/uL (1.20-3.40); #Monocytes 0.6 thou/uL (0.11-0.59); #Neutrophils 6.4 thou/uL (1.40-6.50); %Basophils 0.4 % (0.0-1.0); %Eosinophils 3.3 % (0.0-10.0); %Lymphocytes 35.5 % (21.0-51.0); %Monocytes 5.1 % (0.0-10.0); %Neutrophils 55.7 % (42.0-75.0); Hemoglobin 11.8 g/dL (12.0-16.0); Mean Corpuscular HGB CONC 34.5 g/dL (32.0-36.0); Mean Corpuscular Hemoglobin 28.5 pg (27.0-31.0); Mean Corpuscular Volume 82.6 fl (81.0-99.0); Mean Platelet Volume 7.2 fL (7.4-10.4); Platelet Count 270 thou/uL (130-400); RBC Distribution Width 14.1 % (11.5-14.5); Red Blood Cell (RBC) Count 4.14 mill/uL (4.20-5.40); White Blood Cell (WBC) Count 11.5 thou/uL (4.8-10.8)
[2017-09-26 15:39] LABS: ALT (SGPT) 40 U/L (8-55); AST (SGOT) 35 U/L (5-34); Albumin 4.5 g/dL (3.5-5.0); Alkaline Phosphatase 155 U/L (40-150); Anion Gap 14 mmol/L (10-20); BUN (Urea Nitrogen) 19 mg/dL (9.8-20.1); Bilirubin, Total 0.3 mg/dL (0.2-1.2); CK (CPK) 113 U/L (29-168); Calc. Creatinine Clearance 0 mL/min (70-130); Calcium 9.7 mg/dL (7.8-10.44); Carbon Dioxide 22 mmol/L (22-29); Chloride 106 mmol/L (98-107); Estimated GFR-MDRD 55; Globulin 3.4 g/dL (2.4-3.5); Glucose 114 mg/dL (70-105); Lipase 37 U/L (8-78); Potassium 3.9 mmol/L (3.5-5.1); Protein, Total 7.9 g/dL (6.0-8.3); Sodium 138 mmol/L (136-145)
[2017-09-26] MEDS ORDERED: Ketorolac Tromethamine 30 MG/ML VIAL ONE (17:14)
[2017-09-26] MEDS ORDERED: Ondansetron HCl/PF 4 MG/2 ML Vial ONE (17:14)
[2017-09-26] MEDS ORDERED: HYDROmorphone 0.5 MG/0.5 ML SYRINGE ONE (19:03)
[2017-09-26] MEDS ORDERED: Iothalamate Meglumine 60% 50 ML VIAL FS ONE (19:21)
--- NOTE | 2017-09-26 19:42 | CT ---
ABDOMEN AND PELVIC CT SCAN WITHOUT IV CONTRAST: 09/26/17 HISTORY: 52-year-old female with history of abdominal pain, dysuria and hematuria. History of horseshoe kidney . The lung bases are clear. The visualized liver, gallbladder, pancreas, and spleen are unremarkable. T here is a stable 1.3 cm diameter left adrenal adenoma. There is evidence of a horseshoe kidney with a t least one small nonobstructing calculus in the right kidney portion. Mild dilatation of the right u pper renal collecting system moiety as well as the right ureter down to a mildly obstructing calculus at the right ureterovesicular junction. The amount of obstruction is markedly less than on a prior 1 study. Small calcified disc osteophyte at L3-L4 with mild canal stenosis. Disc osteophytosis, marked at L5-S1 with some left foraminal narrowing. IMPRESSION: Very mildly obstructing distal right ureteral calculus at the uterovesicular junction. Nonobstructing right renal calculus. Horseshoe kidney. There is much less evidence for obstruction and dilatation t yang on the prior study of 04/07/17. Stable left adrenal adenoma. POS: [facility]
[2017-09-26 19:46] LABS: Lactic Acid 1.5 mmol/L (0.5-2.2)
[2017-09-26] MEDS ORDERED: Midazolam HCl 2 mg/2 ml Vial ONE (20:06)
[2017-09-26] MEDS ORDERED: Fentanyl 100 MCG/2 ML VIAL ONE ×2 (20:06→21:47)
[2017-09-26] MEDS ORDERED: cloNIDine 0.1 MG TAB PO PRN (20:22)
[2017-09-26] MEDS ORDERED: Calcium Carbonate 500 MG ChewTAB PO PRN (20:22)
[2017-09-26] MEDS ORDERED: Diabetic Tussin 200 MG/10 ML UDCUP PO PRN (20:22)
[2017-09-26] MEDS ORDERED: Mag-Al 1200 mg/1200 mg/30 ML UDCUP PO PRN (20:22)
[2017-09-26] MEDS ORDERED: Nitroglycerin 0.4 MG TAB (25 Tab Bottle) SL PRN (20:22)
[2017-09-26] MEDS ORDERED: hydrALAZINE 20 MG/ML VIAL SLOW IVP PRN (20:22)
[2017-09-26] MEDS ORDERED: Bisacodyl 5 MG TAB PO PRN (20:22)
[2017-09-26] MEDS ORDERED: Senokot 8.6 MG TAB PO PRN (20:22)
[2017-09-26] MEDS ORDERED: Acetaminophen 325 MG TAB PO PRN (20:22)
[2017-09-26] MEDS ORDERED: Ondansetron HCl/PF 4 MG/2 ML Vial IVP PRN ×2 (20:22→21:29)
[2017-09-26] MEDS ORDERED: Benzonatate 100 MG CAP PO PRN (20:22)
[2017-09-26] MEDS ORDERED: HumaLOG 300 UNITS/3 ML VIAL SC PRN (20:28)
[2017-09-26] MEDS ORDERED: Dextrose 50% Abboject 50 ML SYRINGE SLOW IVP PRN (20:28)
[2017-09-26] MEDS ORDERED: Dextrose 5% in Water 1,000 ML IV PRN (20:28)
[2017-09-26] MEDS ORDERED: Promethazine HCl 25 MG/ML VIAL SLOW IVP PRN (21:29)
[2017-09-26] MEDS ORDERED: Promethazine HCl 25 MG/ML VIAL IM PRN (21:29)
[2017-09-26] MEDS ORDERED: diphenhydrAMINE 50 MG/ML VIAL ONE (21:59)
[2017-09-26] MEDS ORDERED: Dexamethasone 4 mg/ml Vial ONE (22:21)
[2017-09-26] MEDS ORDERED: Dexamethasone 4 mg/ml Vial SLOW IVP SCH (22:30)
[2017-09-26 22:48] VITALS: BMI 29.1
[2017-09-26] MEDS: Ketorolac Tromethamine 30 MG/ML VIAL IVP PRN (23:09)
[2017-09-26] MEDS: Dextrose 5 %-0.45 % NaCl 1,000 ML IV SCH (23:09)
--- NOTE | 2017-09-27 01:25 | OP ---
DATE OF PROCEDURE: 09/26/2017 PREOPERATIVE DIAGNOSIS: Right ureteral stone, possible infection. POSTOPERATIVE DIAGNOSIS: Right ureteral stone, possible infection. PROCEDURE: Cystoscopy, right ureteroscopy, right ureteral stone extraction, right double-J stent jimbo cement. SURGEON: Mihai Knowles M.D. ANESTHESIA: General. INDICATIONS: Ms. Grier is a 52-year-old female who presented with abdominal pain and elevated lactic a mary and white blood cell count. Although, there is no obvious infection in the urine that was concer kristen for urinary tract infection. She is being brought to the operating room for right ureteral sten t placement, ureteroscopy, stone extraction. DETAILS OF PROCEDURE: The patient was given general anesthesia and IV antibiotics. She sterilely pr epped and draped in lithotomy position. Cystoscope was passed into the bladder. The bladder was exa mined in its entirety. The bladder appeared normal. A floppy tip guidewire, which was passed cephal ad under fluoroscopic control and the cystoscope was removed. Rigid ureteroscopy was then performed over another guidewire to the right renal stone. Stone was basketed with a 0 tip basket and removed. A 6 x 22 double-J stent was then passed over the guidewire and coiled in the right renal pelvis and bladder as determined fluoroscopically and cystoscopically. The string was left intact and taped to her leg. A cystoscope was used to drain the bladder. The patient tolerated the procedure well. Lanye lduwig was transferred from the operating room to recovery room in stable condition. COMPLICATIONS: None. ESTIMATED BLOOD LOSS: Minimal. PLAN: Observation for any signs of infection and possible home if she remains clinically stable.
[2017-09-27] MEDS ORDERED: diphenhydrAMINE 25 MG CAP PO PRN ×3 (01:30→09:28)
[2017-09-27] MEDS ORDERED: Fentanyl 100 MCG/2 ML VIAL SLOW IVP SCH (01:45)
[2017-09-27] MEDS: Dextrose 5 %-0.45 % NaCl 1,000 ML IV SCH (05:04)
[2017-09-27 05:30] LABS: Anion Gap 12 mmol/L (10-20); BUN (Urea Nitrogen) 21 mg/dL (9.8-20.1); Calc. Creatinine Clearance 65 mL/min (70-130); Calcium 8.9 mg/dL (7.8-10.44); Carbon Dioxide 21 mmol/L (22-29); Chloride 104 mmol/L (98-107); Estimated GFR-MDRD 42; Glucose 511 mg/dL (70-105); Sodium 132 mmol/L (136-145)
[2017-09-27 05:45] LABS: Band 4 % (5-11); Hemoglobin 10.6 g/dL (12.0-16.0); Lymphocytes 13 % (21-51); MDiff Complete? YES; Mean Corpuscular HGB CONC 34.1 g/dL (32.0-36.0); Mean Corpuscular Hemoglobin 29.4 pg (27.0-31.0); Mean Corpuscular Volume 86.2 fl (81.0-99.0); Mean Platelet Volume 7.8 fL (7.4-10.4); Metamyelocyte 1 % (0-0); Monocytes 1 % (0-10); Myelocyte 1 % (0-0); Neutrophil 80 % (42-75); PLT Morphology Comment Appears Adequate; Platelet Count 206 thou/uL (130-400); RBC Distribution Width 14.3 % (11.5-14.5); Red Blood Cell (RBC) Count 3.62 mill/uL (4.20-5.40); White Blood Cell (WBC) Count 10.3 thou/uL (4.8-10.8)
[2017-09-27] MEDS: Ketorolac Tromethamine 30 MG/ML VIAL IVP PRN ×2 (05:55→10:53)
[2017-09-27] MEDS: HumaLOG 300 UNITS/3 ML VIAL SC PRN ×2 (05:55→12:45)
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
[2017-09-27] MEDS ORDERED: traMADol HCl 50 MG TAB PO PRN (08:39)
[2017-09-27] MEDS ORDERED: Famotidine/PF 20 mg/2ml Vial SLOW IVP SCH (09:00)
[2017-09-27] MEDS ORDERED: Famotidine 20 MG TAB PO SCH (09:00)
[2017-09-27] MEDS ORDERED: Enoxaparin Sodium 40 MG/0.4 ML SYRINGE SC SCH (09:00)
[2017-09-27] MEDS ORDERED: Sodium Chloride 0.9% 1,000 ML IV SCH (09:30)
[2017-09-27 11:38] VITALS: BP 156/91; TEMP 97.5
--- NOTE | 2017-09-27 14:32 | DIS ---
DATE OF ADMISSION: 09/26/2017 DATE OF DISCHARGE: 09/27/2017 CONDITION AT THE TIME OF DISCHARGE: Stable and improved. DISCHARGE DISPOSITION: Home. PRIMARY CARE PHYSICIAN: Arleen Rios, nurse practitioner. DISCHARGE DIAGNOSES: 1. Renal colic. 2. Nephrolithiasis. 3. Possible urinary tract infection. SECONDARY DISCHARGE DIAGNOSES: 1. Hypertension. 2. Diabetes. 3. Hypothyroidism. 4. Horseshoe kidney. 5. Dyslipidemia. CONSULTATIONS: In-house, Urology, Dr. Mihai Knowles. DISCHARGE MEDICATIONS: 1. Levofloxacin 500 mg p.o. daily for 3 more days. 2. Tylenol #3 as needed. 3. Tramadol as needed. Resume home medications as per the H and P dictated by myself yesterday. PROCEDURES DONE IN THE HOSPITAL: 1. CT scan of the abdomen and pelvis upon presentation to the emergency room, which showed very mild ly obstructing distal right ureteral calculus at the ureterovesical junction with slight right-sided hydronephrosis. 2. Right ureteroscopy, cystoscopy, right ureteral stone extraction and right double-J stent placemen t. HISTORY OF PRESENT ILLNESS: Ms. Grier is a very pleasant 52-year-old female, who was admitted by kunal burton last night for complaints of significant renal colic, presenting in the form of pain. The patient has a history of nephrolithiasis in the past and has been seen by Urology, Dr. Eduardo, with spontane ous resolution and passing of the stones in the past. There was a question of possible infection and pyelonephritis and she received some empiric antibiotics in the emergency room and Urology was consu lted. She was started on IV fluids as well and was admitted for further evaluation and care. Please see admission history and physical for further details. HOSPITAL COURSE: The patient was evaluated by Dr. Knowles in the emergency room itself. He actually took the patient the very same day to the OR and she underwent stone extraction and placement of a J stent in the right ureter and was admitted to the floor overnight. This morning, the patient accidentally pulled on the thread that was coming out from the urethra conn ected to her J stent. Dr. Knowles was contacted and he instructed for the patient to pull it out all the way and she did and the stent was removed this way. I discussed this with Dr. Knowles and he wa s agreeable with this development. The stent was temporary to start with. Since then, the patient h as been urinating fine and has had bowel movements as well and is very anxious to go. She did have m ild elevation of her creatinine this morning and I offered to keep her here 1 more night for IV fluid hydration, but she was really tired and wanted to go home and dressed in sterile. She is instructed to increase her oral intake for the next few days and follow with the PCP for repeat renal function check. She was started on empiric oral antibiotic after discussion with the urologist. We appreciat vani askew Urology help in the prompt disposition of this patient. DISCHARGE PHYSICAL EXAMINATION: She was seen and examined prior to discharge. VITAL SIGNS: Stable with heart rate 79, blood pressure 156/91, temperature 97.5. GENERAL EXAMINATION: In no acute distress. CHEST: Clear to auscultation without any wheezing, rales, or rhonchi. CARDIOVASCULAR: Rate and rhythm is regular. ABDOMEN: Slightly tender to palpation diffusely, but no guarding, rebound, or rigidity. LABORATORY EXAMINATION: Her blood culture and urine culture negative until date. WBC is 10.3, down from 11.5 yesterday. H and H stable. Serum chemistry shows sodium of 132, bicarbonate 21, BUN 21, c reatinine 1.34, blood sugar 419. Please note the patient was on D5 half normal saline since she was n.p.o. for the procedure. IV fluids were changed to normal saline and eventually were stopped. She is able to be discharged home in a stable condition today with outpatient followup with Urology and Efrem ZUNIGA. All questions were answered. Prescriptions were provided and the discharge plan was discussed w ith the patient, who verbalized understanding. Total time spent in the patient's discharge is 32 minutes including discussion with the specialist an [id number] interaction with the patient.
[2017-09-27] MEDS ORDERED: cefTRIAXone\\ROCEPHIN 1 GM in Syringe 10 ML SLOW IVP SCH (18:00)
--- NOTE | 2017-09-28 11:07 | RAD ---
RETROGRADE IVP: HISTORY: A 52-year-old female with a history of right flank pain and right ureteral calculus. FINDINGS: Six portable fluoroscopic spot images are presented for interpretation. Initial exam demonstrates a wire within the right ureter up in the right upper collecting system. Contrast media is injected. T here is mild dilatation of the right upper renal collecting system moiety in a known horseshoe kidney . Right ureteral stent is placed following contrast injection. IMPRESSION: Right ureteral stent placement. POS: [facility]
[2017-10-02 18:10] LABS: Color Orange (.); Stone Size 6x4x2 mm (.); Stone Weight 34.1 mg (.); Uric Acid 95 % (.)
== END 2017-09-27 13:08 | disposition home or self-care (01) | DRG 669 ==
LOC: ERS 13:48 → T4-A 22:35
PROVIDERS: ADMIT Internal Medicine; ATTEND Internal Medicine
PROC: 0TC68ZZ Extirpation of Matter from Right Ureter, Via Natural or Artificial Opening Endoscopic (ICD-10-PCS; principal; 2017-09-26)
PROC: 0T768DZ Dilation of Right Ureter with Intraluminal Device, Via Natural or Artificial Opening Endoscopic (ICD-10-PCS; 2017-09-26)
PROC: BT1D0ZZ Fluoroscopy of Right Kidney, Ureter and Bladder using High Osmolar Contrast (ICD-10-PCS; 2017-09-26)
DX: E78.00 Pure hypercholesterolemia, unspecified; R31.9 Hematuria, unspecified; F41.8 Other specified anxiety disorders; E78.5 Hyperlipidemia, unspecified; E87.2 Acidosis; I10 Essential (primary) hypertension; Q63.1 Lobulated, fused and horseshoe kidney; E03.9 Hypothyroidism, unspecified; N13.6 Pyonephrosis; E11.9 Type 2 diabetes mellitus without complications
CPT/HCPCS: 36415; 36416; 74176; 74420; 80048; 80053; 81003; 81015; 82365; 82550; 83605; 83690; 85025; 87040; 87077; 87086; 88300; 93005; 96361; 96374; 96375; A4216; C1758; C1769; J0696; J1100; J1170; J1200; J1650; J1885; J2001; J2250; J2405; J2704; J3010; Q9961

== ENCOUNTER 2017-09-28 00:49 | Emergency (ER) | payer MEDICARE, MEDICAID ==
[2017-09-28 01:16] LABS: Bilirubin Negative (Negative); Blood, Urine Large (Negative); Clarity CLOUDY (Clear); Glucose, Urine (Dipstick) >=1000 mg/dL (Negative); Leukocyte Small (Negative); Nitrite Negative (Negative); Protein, Urine (Dipstick) 30 mg/dL (Neg-Trace); Specific Gravity, Urine 1.027 (1.002-1.036); Urobilinogen 0.2 mg/dL (0.2-1.0); pH, Urine 5.5 (5.0-9.0)
[2017-09-28 01:18] LABS: Bacteria/HPF None Seen HPF (None Seen); Hyaline Casts/LPF 4-6 HYALINE CAST LPF (0-3 Hyaline); Pathc Cast-AUWi Flag 1.03 (0-2.49); Squamous Epithelial 0-3 HPF (0-3); WBC/HPF 21-50 HPF (0-3)
[2017-09-28 01:19] LABS: Yeast-AUWi Flag 223.2 (0-25.0)
[2017-09-28 01:21] LABS: RBC/HPF GREATER THAN 50-TNTC HPF (0-3); Yeast-All Forms None Seen HPF (None Seen)
[2017-09-28] MEDS ORDERED: Ketorolac Tromethamine 30 MG/ML VIAL ONE (01:29)
[2017-09-28 02:56] LABS: Anion Gap 14 mmol/L (10-20); BUN (Urea Nitrogen) 21 mg/dL (9.8-20.1); Calc. Creatinine Clearance 0 mL/min (70-130); Calcium 9.4 mg/dL (7.8-10.44); Carbon Dioxide 20 mmol/L (22-29); Chloride 108 mmol/L (98-107); Estimated GFR-MDRD 40; Glucose 372 mg/dL (70-105); Potassium 4.7 mmol/L (3.5-5.1); Sodium 137 mmol/L (136-145)
== END 2017-09-28 04:53 | disposition home or self-care (01) ==
LOC: ERS 00:49
DX: N23 Unspecified renal colic (principal); R31.9 Hematuria, unspecified; E11.9 Type 2 diabetes mellitus without complications; E03.9 Hypothyroidism, unspecified; E78.5 Hyperlipidemia, unspecified; F41.9 Anxiety disorder, unspecified; F32.9 Major depressive disorder, single episode, unspecified; Z79.4 Long term (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 insulin; Z79.899 Other long term (current) drug therapy
CPT/HCPCS: 80048; 81003; 81015; 96374; J1885

== ENCOUNTER 2018-01-21 08:09 | Outpatient (CLI) | payer MEDICARE, MEDICAID | END 2018-01-21 08:10 | disposition home or self-care (01) | LOC: BICULT 08:09 | PROVIDERS: ATTEND Surgery | DX: R10.11 Right upper quadrant pain (principal); R16.0 Hepatomegaly, not elsewhere classified | CPT/HCPCS: 76705 ==

== ENCOUNTER 2018-07-05 14:20 | Outpatient (CLI) | payer MEDICARE, MEDICAID | END 2018-07-05 14:21 | disposition home or self-care (01) | LOC: BICMAMMO 14:20 | PROVIDERS: ATTEND Nurse Practitioner Family | DX: Z12.31 Encounter for screening mammogram for malignant neoplasm of breast (principal); Z80.3 Family history of malignant neoplasm of breast | CPT/HCPCS: 77063; 77067 ==

== ENCOUNTER 2018-07-09 14:37 | Outpatient (CLI) | payer MEDICARE, MEDICAID ==
--- NOTE | 2018-07-09 17:10 | ULT ---
BILATERAL RENAL SONOGRAM: Date: 07/09/18 HISTORY: Horseshoe kidney. Flank pain. FINDINGS: Horseshoe configuration of the kidney is not well demonstrated on today's sonogram. The right kidney measures up to 12.0 cm and the left 13.1 cm. No hydronephrosis. Stones not visualized sonographically . Urinary bladder unremarkable. IMPRESSION: No evidence of urinary tract obstruction. POS: [facility]
== END 2018-07-09 14:38 | disposition home or self-care (01) ==
LOC: BICULT 14:37
PROVIDERS: ATTEND Internal Medicine Nephrology
DX: N18.3 Chronic kidney disease, stage 3 (moderate) (principal)
CPT/HCPCS: 76770

== ENCOUNTER 2019-02-04 12:26 | Outpatient (CLI) | payer MEDICARE ==
--- NOTE | 2019-02-04 13:20 | CT ---
CT Abdomen Pelvis W Con: 02/04/2019 12:00 AM CLINICAL INFORMATION: Abdominal pain. History of umbilical hernia repair COMPARISON: 08/02/2017 TECHNIQUE: Multiple contiguous axial images were obtained and a CT of the abdomen and pelvis with IV contrast. Oral contrast was administered. Coronal reformats were performed. FINDINGS: Lower Chest: within normal limits. Abdomen: Liver: within normal limits. Bile Ducts: Normal caliber. Gallbladder: No calcified gallstones. Normal caliber wall. Pancreas: within normal limits. Spleen: within normal limits. Adrenals: Small stable left adrenal nodules measuring up to 1.5 cm in size. Kidneys: Horseshoe kidney without evidence of hydronephrosis or calculi Pelvis: Reproductive Organs: Status post hysterectomy. Ureters: within normal limits. Bladder: within normal limits. Peritoneum: No ascites or free air, no fluid collection. Bowel: Normal caliber. Mesentery and Retroperitoneum: No enlarged mesenteric or retroperitoneal lymph nodes. Vessels: Normal. Abdominal Wall: within normal limits. Bones: Within normal limits IMPRESSION: 1. No evidence of acute intraabdominal or pelvic abnormality. 2. Horseshoe kidney 3. Stable left adrenal nodules
== END 2019-02-04 12:27 | disposition home or self-care (01) ==
LOC: BICCT 12:26
PROVIDERS: ATTEND Surgery
DX: R10.9 Unspecified abdominal pain (principal); Q63.1 Lobulated, fused and horseshoe kidney; E27.8 Other specified disorders of adrenal gland
CPT/HCPCS: 74177

== ENCOUNTER 2019-07-21 13:48 | Emergency (ER) | payer MEDICARE ==
[2019-07-21 18:06] LABS: #Basophils 0.1 thou/uL (0.0-0.2); #Eosinphils 0.2 thou/uL (0.0-0.7); #Lymphocytes 2.2 thou/uL (1.20-3.40); #Monocytes 0.6 thou/uL (0.11-0.59); #Neutrophils 6.1 thou/uL (1.40-6.50); %Basophils 0.7 % (0.0-1.0); %Eosinophils 2.3 % (0.0-10.0); %Monocytes 6.9 % (0.0-10.0); %Neutrophils 66.1 % (42.0-75.0); Hemoglobin 11.4 g/dL (12.0-16.0); Mean Corpuscular HGB CONC 33.5 g/dL (32.0-36.0); Mean Corpuscular Hemoglobin 30.2 pg (27.0-31.0); Platelet Count 230 thou/uL (130-400); RBC Distribution Width 13.4 % (11.5-14.5); Red Blood Cell (RBC) Count 3.77 mill/uL (4.20-5.40); White Blood Cell (WBC) Count 9.3 thou/uL (4.8-10.8)
[2019-07-21 18:31] LABS: Bilirubin Negative (Negative); Blood, Urine Negative (Negative); Clarity Clear (Clear); Glucose, Urine (Dipstick) Normal (Negative); Leukocyte Negative Leu/uL (Negative); Nitrite Negative (Negative); Protein, Urine (Dipstick) 10 mg/dL (Neg-Trace); Urobilinogen Normal mg/dL (Less than 2)
[2019-07-21 18:35] LABS: ALT (SGPT) 32 U/L (8-55); AST (SGOT) 49 U/L (5-34); Albumin 4.9 g/dL (3.5-5.0); Alkaline Phosphatase 139 U/L (40-110); Anion Gap 15 mmol/L (10-20); BUN (Urea Nitrogen) 48 mg/dL (9.8-20.1); Bilirubin, Total 0.4 mg/dL (0.2-1.2); Calc. Creatinine Clearance 0 mL/min (70-130); Calcium 10.2 mg/dL (7.8-10.44); Carbon Dioxide 22 mmol/L (22-29); Chloride 103 mmol/L (98-107); Estimated GFR-MDRD 28; Globulin 3.1 g/dL (2.4-3.5); Glucose 199 mg/dL (70-105); Lipase 24 U/L (8-78); Magnesium 2.3 mg/dL (1.6-2.6); Potassium 4.8 mmol/L (3.5-5.1); Sodium 135 mmol/L (136-145)
--- NOTE | 2019-07-21 19:48 | ULT ---
GALLBLADDER ULTRASOUND: History: Abdominal pain. Patient of umbilical hernia repair. Also history of appendectomy and hystere ctomy. FINDINGS: Real-time imaging of the right upper quadrant shows a normal appearing gallbladder. The common duct i s in the 4-5 mm range. Liver measures approximately 19.9 cm in length and shows diffuse fatty change. Right kidney is not obstructed. It shows some minimal prominence to the right collecting system, but this is similar to the CT examination of 02-04-19. This is a horseshoe kidney, difficult to show on t his exam. IMPRESSION: No evidence of gallstones. Fatty changes of the liver which is borderline in size. POS: [facility]
[2019-07-21] MEDS ORDERED: Ondansetron PF 4 MG/2 ML Vial ONE (20:07)
[2019-07-21] MEDS ORDERED: Fentanyl 100 MCG/2 ML VIAL ONE (20:51)
[2019-07-21] MEDS ORDERED: HYDROcodone/Acetaminophen 5/325 mg Tablet ONE (20:51)
--- NOTE | 2019-07-21 21:22 | CT ---
CT abdomen and pelvis performed without contrast: HISTORY: Right-sided abdomen pain. History of appendectomy and hernia repair. COMPARISON: 09/26/2017 study. Also review is made of an 01/25/2019 exam. FINDINGS: The lung bases are clear of any infiltrative process. There are fatty changes of the liver which measures 22 cm in length. Spleen is within normal limits. The pancreas and gallbladder regions appear unremarkable. Right and left adrenal glands are stable in appearance with a left adrenal density probably a adenoma unchanged. 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 No obstruction or renal calculi. No ureteral calculus. No significant periaortic or mesenteric adenopathy. CT of pelvis performed without contrast enhancement: No evidence of adenopathy, mass or free fluid. IMPRESSION: 1. Fatty changes of the liver which is slightly enlarged. 2. Horseshoe kidney. 3. Stable left adrenal nodule.
== END 2019-07-21 22:55 | disposition home or self-care (01) ==
LOC: ERS 13:48
DX: E86.0 Dehydration (principal); R10.9 Unspecified abdominal pain; R11.2 Nausea with vomiting, unspecified; E66.9 Obesity, unspecified; E11.9 Type 2 diabetes mellitus without complications; E03.9 Hypothyroidism, unspecified; E78.5 Hyperlipidemia, unspecified; E78.00 Pure hypercholesterolemia, unspecified; F41.9 Anxiety disorder, unspecified; F32.9 Major depressive disorder, single episode, unspecified
CPT/HCPCS: 36415; 74176; 76705; 80053; 81003; 83690; 83735; 84484; 85025; 93005; 96361; 96374; 96375; J2405; J3010

== ENCOUNTER 2019-11-25 18:16 | Inpatient (IN) | payer MEDICARE ==
[~2019-11-25 18:16] MED LIST changes: +Iopamidol-370 76% 500 ML 1 ML ONE; -Lidocaine 1% PF 5 ML VIAL ONE; -Ondansetron HCl/PF 4 MG/2 ML Vial ONE; -PHENYLEPHRINE-NS 100 MCG/ML 10 ML SYRINGE ONE; -PROPOFOL 200 MG/20 ML VIAL ONE; -Succinylcholine Chloride 20 MG/ML 10 ml SYRINGE FS ONE; -diphenhydrAMINE 50 MG/ML VIAL ONE
[2019-11-25 18:48] LABS: #Basophils 0.1 thou/uL (0.0-0.2); #Eosinphils 0.3 thou/uL (0.0-0.7); #Lymphocytes 3.2 thou/uL (1.20-3.40); #Monocytes 0.8 thou/uL (0.11-0.59); %Basophils 0.7 % (0.0-1.0); %Eosinophils 2.4 % (0.0-10.0); %Lymphocytes 23.9 % (21.0-51.0); %Neutrophils 67.1 % (42.0-75.0); Hemoglobin 13.4 g/dL (12.0-16.0); Mean Corpuscular HGB CONC 34.5 g/dL (32.0-36.0); Mean Corpuscular Hemoglobin 30.4 pg (27.0-31.0); Mean Corpuscular Volume 88.1 fL (78.0-98.0); Mean Platelet Volume 8.9 fL (7.4-10.4); Platelet Count 323 thou/uL (130-400); RBC Distribution Width 13.2 % (11.5-14.5); Red Blood Cell (RBC) Count 4.42 mill/uL (4.20-5.40); White Blood Cell (WBC) Count 13.3 thou/uL (4.8-10.8)
[2019-11-25 19:10] LABS: ALT (SGPT) 14 U/L (8-55); AST (SGOT) 18 U/L (5-34); Albumin 4.7 g/dL (3.5-5.0); Alkaline Phosphatase 183 U/L (40-110); Anion Gap 18 mmol/L (10-20); BUN (Urea Nitrogen) 36 mg/dL (9.8-20.1); Bilirubin, Total 0.4 mg/dL (0.2-1.2); Calc. Creatinine Clearance 0 mL/min (70-130); Calcium 10.7 mg/dL (7.8-10.44); Carbon Dioxide 20 mmol/L (22-29); Chloride 102 mmol/L (98-107); Estimated GFR-MDRD 35; Globulin 3.7 g/dL (2.4-3.5); Glucose 266 mg/dL (70-105); Lipase 46 U/L (8-78); Potassium 4.7 mmol/L (3.5-5.1); Protein, Total 8.4 g/dL (6.0-8.3); Sodium 135 mmol/L (136-145)
[2019-11-25] MEDS ORDERED: Ondansetron PF 4 MG/2 ML Vial ONE (20:09)
[2019-11-25] MEDS ORDERED: Cefepime 2 GM VIAL ONE (20:38)
[2019-11-25] MEDS ORDERED: Lorazepam 2 MG/ML VIAL ONE (20:50)
--- NOTE | 2019-11-25 21:28 | CT ---
CT ABDOMEN AND PELVIS WITH IV CONTRAST: 11/25/19 HISTORY: Abdominal pain. Dysuria. COMPARISON: 07/21/19. FINDINGS: The lung bases are clear. Horseshoe configuration of the kidneys again demonstrated. No evidence of s tone or obstruction. No focal lesions. Small adenomas of the left adrenal gland are stable. No free air or free fluid. No evidence of bowel obstruction or inflammation. Urinary bladder is incompletely distended. Degenerative changes of the lumbar spine. Disc bulge and central canal stenosis are most pronounced a t the L3-4 level. Foraminal stenosis greatest on the left at the lumbosacral junction. IMPRESSION: No acute abnormalities are demonstrated. Chronic type findings are stable. POS: BST
[2019-11-25 22:02] LABS: Bacteria/HPF 3+ HPF (None Seen); Bilirubin Negative (Negative); Blood, Urine Negative (Negative); Clarity Clear (Clear); Glucose, Urine (Dipstick) 300 mg/dL (Negative); Leukocyte 500 Leu/uL (Negative); Nitrite 2+ (Negative); Protein, Urine (Dipstick) Negative (Neg-Trace); Squamous Epithelial 0-3 HPF (0-3); Urobilinogen Normal mg/dL (Less than 2); WBC/HPF 21-50 HPF (0-3)
[2019-11-25] MEDS ORDERED: Vancomycin 1 GM/200 ML BAG ONE (22:23)
[2019-11-25] MEDS ORDERED: Ondansetron PF 4 MG/2 ML Vial IVP PRN (23:43)
[2019-11-25] MEDS ORDERED: Ondansetron ODT 4 MG TAB SL PRN (23:43)
[2019-11-25 23:53] LABS: Lactic Acid 1.5 mmol/L (0.5-2.2)
[2019-11-26 00:26] VITALS: BMI 28.7
[2019-11-26] MEDS: Sodium Chloride 0.9% 1,000 ML IV SCH ×2 (00:32→07:47)
[2019-11-26] MEDS ORDERED: Acetaminophen 650 MG Suppository PR PRN (00:58)
[2019-11-26] MEDS ORDERED: Ondansetron ODT 4 MG TAB PO PRN (00:58)
[2019-11-26] MEDS ORDERED: Ondansetron PF 4 MG/2 ML Vial IVP PRN (00:58)
[2019-11-26] MEDS ORDERED: Dextrose 50% Abboject 50 ML SYRINGE SLOW IVP PRN (01:00)
[2019-11-26] MEDS ORDERED: HumaLOG 300 UNITS/3 ML VIAL SC PRN (01:00)
[2019-11-26] MEDS ORDERED: Dextrose 5% in Water 1,000 ML IV PRN (01:00)
[2019-11-26] MEDS ORDERED: Promethazine 25 MG TAB PO PRN (01:03)
[2019-11-26] MEDS ORDERED: PROVENTIL INHALER 6.7 G (200 INHALATIONS) INH PRN (01:03)
[2019-11-26] MEDS: Lorazepam 0.5 MG TAB PO PRN ×4 (01:09→20:33)
[2019-11-26] MEDS: HumaLOG 300 UNITS/3 ML VIAL SC PRN ×3 (01:32→11:40)
[2019-11-26 01:54] LABS: #Eosinphils 0.3 thou/uL (0.0-0.7); #Lymphocytes 2.6 thou/uL (1.20-3.40); #Monocytes 0.5 thou/uL (0.11-0.59); #Neutrophils 5.3 thou/uL (1.40-6.50); %Basophils 0.4 % (0.0-1.0); %Lymphocytes 30.2 % (21.0-51.0); %Monocytes 5.9 % (0.0-10.0); %Neutrophils 60.5 % (42.0-75.0); Hemoglobin 10.4 g/dL (12.0-16.0); Mean Corpuscular HGB CONC 34.4 g/dL (32.0-36.0); Mean Corpuscular Hemoglobin 30.9 pg (27.0-31.0); Mean Corpuscular Volume 89.9 fL (78.0-98.0); Mean Platelet Volume 9.1 fL (7.4-10.4); Platelet Count 198 thou/uL (130-400); Red Blood Cell (RBC) Count 3.35 mill/uL (4.20-5.40); White Blood Cell (WBC) Count 8.7 thou/uL (4.8-10.8)
[2019-11-26 02:13] LABS: Hemoglobin A1c 11.5 % (4.0-6.0)
[2019-11-26 02:17] LABS: Anion Gap 14 mmol/L (10-20); BUN (Urea Nitrogen) 32 mg/dL (9.8-20.1); Calc. Creatinine Clearance 64 mL/min (70-130); Calcium 8.5 mg/dL (7.8-10.44); Carbon Dioxide 18 mmol/L (22-29); Chloride 106 mmol/L (98-107); Estimated GFR-MDRD 40; Glucose 498 mg/dL (70-105); Potassium 4.5 mmol/L (3.5-5.1); Sodium 133 mmol/L (136-145)
[2019-11-26] MEDS ORDERED: Gabapentin 300 MG CAP PO SCH (02:45)
[2019-11-26] MEDS ORDERED: rOPINIRole HCl 2 MG TAB PO SCH (02:45)
[2019-11-26] MEDS ORDERED: Insulin Glargine 20 UNITS in Pre-Filled Syringe 1 EACH SC SCH (04:00)
--- NOTE | 2019-11-26 05:41 | HP ---
TIME OF ASSESSMENT: 0030 hours. PRIMARY CARE PHYSICIAN: Arleen Rios. REASON FOR ADMISSION: UTI/sepsis. HISTORY OF PRESENT ILLNESS: Ms. Grier is a 54-year-old woman who presents to the emergency department today with complaints of having suprapubic abdominal discomfort for the last 4 days as well as vaginal discharge or leaking of urine. The patient states she then developed nausea, vomiting, and diarrhea two days ago. She states that the diarrhea is happening immediately after her meals. Today, she was dry heaving. Denies any melena or bright red stools per rectum. Denies any hematemesis. Has had chills, but denies any fevers. Complains of generalized body aches. Also complaining of generalized back discomfort. Has not had any chest pain or shortness of breath. Denies any cough. ED COURSE: In the emergency department, the patient was noted to be tachycardic with a heart rate of 102 to 124. She remained afebrile. Underwent a CT of the abdomen and pelvis, which showed no acute changes. She had laboratory studies done, which were notable for white count of 13.3, hemoglobin 13.4, hematocrit 38.9, platelets 323, neutrophils 67.1%. Sodium was 135, BUN 36, creatinine 1.53, GFR 35. Renal function was slightly improved from most recent blood test done in June. Lactic acid initially elevated at 2.3; however, repeat was improved at 1.5. Calcium elevated at 10.7. Alkaline phosphatase 183. LFTs otherwise unremarkable. Lipase is normal. She underwent a urinalysis, which was notable for 2+ nitrites, 500 leukocyte esterase, 4 to 6 red blood cells, and 21 to 50 white blood cells, and there was 3+ urine bacteria. In the ED, she was started on IV antibiotics with Rocephin and vancomycin. For anxiety, she was given 1 mg of Ativan. She was started on IV fluids at 125 mL an hour. PAST MEDICAL HISTORY: 1. Anxiety. 2. Hypothyroidism. 3. Hyperlipidemia. 4. Diabetes mellitus type 2. 5. Depression. PHYSICAL EXAMINATION: GENERAL: The patient appears well developed, well nourished, in no acute distress. VITAL SIGNS: Temperature 97.9, pulse 87, respirations 16, O2 saturation 98% on room air, blood pressure 127/66. HEENT: Normocephalic and atraumatic. Pupils are equal, round, and reactive to light. Anicteric sclerae. Oropharynx is clear. NECK: Supple. LUNGS: Clear to auscultation bilaterally without wheezes, rales, or rhonchi. CARDIAC: Regular rate and rhythm without audible murmurs, rubs, or gallops. ABDOMEN: Soft, nondistended. There was some mild suprapubic discomfort with palpation. EXTREMITIES: No lower extremity edema or swelling. NEUROLOGIC: Alert and oriented x3. SKIN: Warm and dry. INVESTIGATIONS: As mentioned above in HPI. IMPRESSION AND PLAN: Ms. Grier is a 54-year-old woman, who is being admitted for management of the following; 1. Urinary tract infection. 2. The patient with urinary symptoms and suprapubic discomfort. We will continue IV antibiotics. Urinalysis and urine culture sent. We will obtain a bladder scan to evaluate for any postvoid residual volume/urinary retention. 3. Leukocytosis. The patient reports feeling generally unwell for the last 4 days and she does have urinary symptoms. We will obtain baseline chest x-ray. Lactic acid has improved. We will continue IV fluids. 4. Diabetes mellitus. Monitor blood glucose and initiate sliding scale. Reconcile home medications once verified. 5. Hypothyroidism. We will check TSH with morning labs. Again, we will reconcile home medications once verified. 6. Gastrointestinal prophylaxis with famotidine. 7. Deep venous thrombosis prophylaxis. The patient is ambulatory. Walking program consulted. 8. Code status is full. Surrogate decision maker is Luca Grier. Case discussed with attending, who agrees upon the care as described above. Job ID: [id number] MTDD
[2019-11-26] MEDS: Levothyroxine Sodium 100 MCG TAB PO SCH (06:04)
[2019-11-26] MEDS: Acetaminophen 325 MG TAB PO PRN ×2 (07:31→18:00)
--- NOTE | 2019-11-26 08:11 | RAD ---
TWO VIEW CHEST: HISTORY: Sepsis. FINDINGS: Lungs are clear. Heart and mediastinum unremarkable. Osseous structures unremarkable. IMPRESSION: No acute process. POS: AGW
[2019-11-26] MEDS: cefTRIAXone\\ROCEPHIN 1 GM in Sodium Chloride 0.9% 100 ML IVPB SCH (08:21)
[2019-11-26] MEDS: Famotidine/PF 20 mg/2ml Vial SLOW IVP SCH ×2 (08:22→20:08)
[2019-11-26] MEDS: Phenazopyridine HCl 97.5 MG TABLET PO SCH ×3 (08:22→17:49)
[2019-11-26] MEDS: Lisinopril 5 MG TAB PO SCH (08:22)
[2019-11-26] MEDS: Saccharomyces boulardii 250 MG CAP PO SCH (08:22)
[2019-11-26] MEDS: Gabapentin 300 MG CAP PO SCH ×3 (08:22→20:03)
[2019-11-26] MEDS ORDERED: Vancomycin 1 GM in Premix Bag 1 BAG IVPB SCH (10:00)
[2019-11-26] MEDS: Vancomycin HCl 750 MG in Sodium Chloride 0.9% 250 ML 250 ML IVPB SCH ×2 (10:15→21:04)
[2019-11-26] MEDS ORDERED: Insulin Regular 300 UNITS/3 ML VIAL SC SCH (12:30)
[2019-11-26] MEDS: HYDROcodone/Acetaminophen 5/325 mg Tablet PO PRN ×2 (12:52→20:03)
--- NOTE | 2019-11-26 14:05 | PDOC.HOSPP ---
- Subjective Encounter Date: 11/26/19 Encounter Time: 01:30 Subjective: pt states that her lower abd still uncomfortable and feels week, BG usually at home in 200 range, and here above 300 [infn?] - Objective Vital Signs & Weight: Vital Signs (12 hours) Temp Pulse Resp BP BP Pulse Ox 11/26/19 11:30 98.1 F 76 16 114/62 98 11/26/19 08:22 77 121/72 97 11/26/19 07:47 97.4 F L 77 18 121/72 97 11/26/19 03:53 98.6 F 73 16 117/62 97 Weight Weight 188 lb 14.978 oz I&O: 11/25/19 11/26/19 11/27/19 06:59 06:59 06:59 Intake Total 1490 Balance 1490 Result Diagrams: 11/26/19 01:36 11/26/19 01:36 Additional Labs: Accuchecks 11/26/19 11/26/19 11/26/19 11:34 06:08 02:46 POC Glucose 370 H 301 H 508 H 11/26/19 11/25/19 01:18 20:31 POC Glucose 462 H 307 H Hospitalist ROS - Medication Medications: Active Medications Generic Name Dose Route Start Last Admin Trade Name Freq PRN Reason Stop Dose Admin Acetaminophen 650 mg 11/26/19 00:58 11/26/19 07:31 Tylenol PO 650 mg Q4H PRN Administration Headache/Fever/Mild Pain (1-3) Hydrocodone Bitart/Acetaminophen 1 tab 11/26/19 12:17 11/26/19 12:52 [place] 5/325 PO 11/28/19 08:00 1 tab Q8H PRN Administration Pain Famotidine 20 mg 11/26/19 09:00 11/26/19 08:22 Pepcid SLOW IVP 20 mg Q12HR LAURA Administration Gabapentin 300 mg 11/26/19 09:00 11/26/19 08:22 Neurontin PO 300 mg TID LAURA Administration Ceftriaxone Sodium 1 gm/ 100 mls @ 200 mls/hr 11/26/19 09:00 11/26/19 08:21 Sodium Chloride IVPB 100 mls Q24HR LAURA Administration Vancomycin HCl 750 mg/ Sodium 250 mls @ 250 mls/hr 11/26/19 10:00 11/26/19 10 :15 Chloride IVPB 250 mls 1000,2200 LAURA Administration Insulin Human Regular 10 units 11/26/19 12:30 11/26/19 12:52 Humulin R SC 11/26/19 14:30 10 units NOW LAURA Administration Levothyroxine Sodium 100 mcg 11/26/19 06:00 11/26/19 06:04 Synthroid PO 100 mcg 0600 LAURA Administration Lisinopril 5 mg 11/26/19 09:00 11/26/19 08:22 Zestril PO 5 mg QAM LAURA Administration Lorazepam 0.5 mg 11/26/19 00:54 11/26/19 08:22 Ativan PO 0.5 mg Q4H PRN Administration Anxiety Ondansetron HCl 4 mg 11/26/19 00:58 11/26/19 08:27 Zofran IVP 4 mg Q6H PRN Administration Nausea/Vomiting Phenazopyridine HCl 97.5 mg 11/26/19 09:00 11/26/19 12:52 Azo Standard PO 97.5 mg PC LAURA Administration Saccharomyces Boulardii 250 mg 11/26/19 09:00 11/26/19 08:22 Florastor PO 250 mg DAILY LAURA Administration Sodium Chloride 10 ml 11/26/19 09:00 11/26/19 10:16 Flush - Normal Saline IVF 10 ml Q12HR LAURA Administration - Exam General Appearance: NAD, awake alert Eye: PERRL ENT: normocephalic atraumatic Neck: supple Heart: RRR Respiratory: CTAB, normal chest expansion Gastrointestinal: soft, normal bowel sounds Extremities: no edema Neurological: cranial nerve grossly intact, no focal deficits Psychiatric: normal affect, normal behavior, A&O x 3 Hosp A/P - Plan UTI generalized weakness d/t above Uncontrolled DM2 w.. A1c of 11.5 -cw CTX and follow the oli -explaine dto the pt that will hold glipizide and metformin as cr creeping up + oral drugs not much when a1c hits 11. - lantus bid, SSI - aggressive titration and strict diet adherence and close fw w.. PCP Leukocytosis-resolved. if oli back w.. sensitivity - redefine the abx and dc.
[2019-11-26] MEDS: Insulin Regular 300 UNITS/3 ML VIAL SC PRN ×2 (17:49→20:03)
[2019-11-26] MEDS: rOPINIRole HCl 2 MG TAB PO SCH (20:02)
[2019-11-26] MEDS: Simvastatin 5 MG TAB PO SCH (20:02)
[2019-11-26] MEDS ORDERED: Non-Formulary Item 1 EACH (Insulin Glargine,Hum.Rec.Anlog [Lantus Solostar] 30 UNIT) SQ SCH (21:00)
[2019-11-26] MEDS ORDERED: Non-Formulary Item 1 EACH (Lovastatin [Lovastatin] 20 MG) PO SCH (21:00)
[2019-11-26] MEDS ORDERED: Insulin Glargine 30 UNITS in Pre-Filled Syringe 1 EACH SC SCH ×2 (21:00)
[2019-11-27] MEDS: HYDROcodone/Acetaminophen 5/325 mg Tablet PO PRN ×3 (06:09→22:08)
[2019-11-27] MEDS: Levothyroxine Sodium 100 MCG TAB PO SCH (06:10)
[2019-11-27] MEDS: Insulin Regular 300 UNITS/3 ML VIAL SC PRN ×4 (06:11→20:51)
[2019-11-27] MEDS: Famotidine/PF 20 mg/2ml Vial SLOW IVP SCH ×2 (09:23→20:35)
[2019-11-27] MEDS: Gabapentin 300 MG CAP PO SCH ×3 (09:23→20:41)
[2019-11-27] MEDS: Saccharomyces boulardii 250 MG CAP PO SCH (09:23)
[2019-11-27] MEDS: Acetaminophen 325 MG TAB PO PRN ×2 (09:23→19:50)
[2019-11-27] MEDS: Lisinopril 5 MG TAB PO SCH (09:23)
[2019-11-27] MEDS: Phenazopyridine HCl 97.5 MG TABLET PO SCH ×3 (09:23→17:45)
[2019-11-27 10:03] LABS: Vancomycin, Trough 9.3 ug/mL
[2019-11-27] MEDS: Insulin Glargine 40 UNITS in Pre-Filled Syringe 1 EACH SC SCH ×2 (10:11→20:50)
[2019-11-27] MEDS: cefTRIAXone\\ROCEPHIN 1 GM in Sodium Chloride 0.9% 100 ML IVPB SCH (10:13)
[2019-11-27] MEDS: Vancomycin 1 GM in Premix Bag 1 BAG IVPB SCH ×2 (11:14→22:03)
[2019-11-27] MEDS: Vancomycin HCl 750 MG in Sodium Chloride 0.9% 250 ML 250 ML IVPB SCH (11:42)
--- NOTE | 2019-11-27 13:56 | PDOC.HOSPP ---
- Subjective Encounter Date: 11/27/19 Encounter Time: 11:20 Subjective: pt feels better w.. lower abd pain--ucx x 12 hrs neg. BG high, insulin being titrated. - Objective Vital Signs & Weight: Vital Signs (12 hours) Temp Pulse Resp BP Pulse Ox 11/27/19 09:25 97.6 F 84 20 134/70 96 11/27/19 09:23 85 Weight Weight 188 lb 14.978 oz I&O: 11/26/19 11/27/19 11/28/19 06:59 06:59 06:59 Intake Total 1490 4550 Balance 1490 4550 Result Diagrams: 11/26/19 01:36 11/26/19 01:36 Additional Labs: Accuchecks 11/27/19 11/27/19 11/26/19 11:21 06:12 20:03 POC Glucose 428 H 476 H 445 H 11/26/19 16:53 POC Glucose 406 H Hospitalist ROS - Medication Medications: Active Medications Generic Name Dose Route Start Last Admin Trade Name Freq PRN Reason Stop Dose Admin Acetaminophen 650 mg 11/26/19 00:58 11/27/19 09:23 Tylenol PO 650 mg Q4H PRN Administration Headache/Fever/Mild Pain (1-3) Hydrocodone Bitart/Acetaminophen 1 tab 11/26/19 12:17 11/27/19 06:09 [place] 5/325 PO 11/28/19 08:00 1 tab Q8H PRN Administration Pain Famotidine 20 mg 11/26/19 09:00 11/27/19 09:23 Pepcid SLOW IVP 20 mg Q12HR LAURA Administration Gabapentin 300 mg 11/26/19 09:00 11/27/19 09:23 Neurontin PO 300 mg TID LAURA Administration Ceftriaxone Sodium 1 gm/ 100 mls @ 200 mls/hr 11/26/19 09:00 11/27/19 10:13 Sodium Chloride IVPB 100 mls Q24HR LAURA Administration Insulin Glargine 40 units/ 0.4 mls @ 0 mls/hr 11/27/19 09:00 11/27/19 10:11 Miscellaneous Medication SC 0.4 mls BID LAURA Administration Vancomycin HCl 1 gm/ Device 200 mls @ 200 mls/hr 11/27/19 10:00 11/27/19 11: 14 IVPB 200 mls 1000,2200 LAURA Administration Insulin Human Regular 0 units 11/26/19 13:17 11/27/19 11:42 Humulin R SC 10 units .MODERATE SLIDING SC PRN Administration MODERATE SLIDING SCALE Protocol Levothyroxine Sodium 100 mcg 11/26/19 06:00 11/27/19 06:10 Synthroid PO 100 mcg 0600 LAURA Administration Lisinopril 5 mg 11/26/19 09:00 11/27/19 09:23 Zestril PO 5 mg QAM LAURA Administration Lorazepam 0.5 mg 11/26/19 00:54 11/26/19 20:33 Ativan PO 0.5 mg Q4H PRN Administration Anxiety Ondansetron HCl 4 mg 11/26/19 00:58 11/26/19 08:27 Zofran IVP 4 mg Q6H PRN Administration Nausea/Vomiting Phenazopyridine HCl 97.5 mg 11/26/19 09:00 11/27/19 12:16 Azo Standard PO Not Given PC LAURA Ropinirole HCl 2 mg 11/26/19 21:00 11/26/19 20:02 Requip PO 2 mg HS LARUA Administration Saccharomyces Boulardii 250 mg 11/26/19 09:00 11/27/19 09:23 Florastor PO 250 mg DAILY LAURA Administration Simvastatin 10 mg 11/26/19 21:00 11/26/19 20:02 Zocor PO 10 mg HS LAURA Administration Sodium Chloride 10 ml 11/26/19 09:00 11/27/19 09:24 Flush - Normal Saline IVF 10 ml Q12HR LAURA Administration - Exam General Appearance: NAD, awake alert Eye: PERRL ENT: normocephalic atraumatic Neck: supple Heart: RRR, normal peripheral pulses Respiratory: CTAB, normal chest expansion Gastrointestinal: soft, normal bowel sounds Neurological: no focal deficits Psychiatric: normal affect, normal behavior, A&O x 3 Hosp A/P - Plan UTI generalized weakness d/t above Uncontrolled DM2 w.. A1c of 11.5 -cw CTX and follow the oli -explaine dto the pt that will hold glipizide and metformin as cr creeping up + oral drugs not much when a1c hits 11. - lantus bid, SSI - aggressive titration and strict diet adherence and close fw w.. PCP Leukocytosis-resolved. if oli back w.. sensitivity - redefine the abx and dc. prob dc in am.
[2019-11-27] MEDS: Simvastatin 5 MG TAB PO SCH (20:41)
[2019-11-27] MEDS: rOPINIRole HCl 2 MG TAB PO SCH (20:41)
[2019-11-27] MEDS: Famotidine 20 MG TAB PO SCH (20:42)
[2019-11-27] MEDS: Lorazepam 0.5 MG TAB PO PRN (22:08)
[2019-11-28] MEDS: Levothyroxine Sodium 100 MCG TAB PO SCH (05:47)
[2019-11-28] MEDS: Insulin Regular 300 UNITS/3 ML VIAL SC PRN ×6 (05:50→20:39)
[2019-11-28] MEDS: HYDROcodone/Acetaminophen 5/325 mg Tablet PO PRN (06:59)
[2019-11-28] MEDS: Gabapentin 300 MG CAP PO SCH ×3 (08:44→20:05)
[2019-11-28] MEDS: Lisinopril 5 MG TAB PO SCH (08:44)
[2019-11-28] MEDS: Famotidine 20 MG TAB PO SCH ×2 (08:44→20:05)
[2019-11-28] MEDS: Phenazopyridine HCl 97.5 MG TABLET PO SCH ×3 (08:44→17:34)
[2019-11-28] MEDS: Saccharomyces boulardii 250 MG CAP PO SCH (08:44)
[2019-11-28] MEDS: Insulin Glargine 40 UNITS in Pre-Filled Syringe 1 EACH SC SCH (08:45)
[2019-11-28] MEDS: cefTRIAXone\\ROCEPHIN 1 GM in Sodium Chloride 0.9% 100 ML IVPB SCH (09:45)
[2019-11-28] MEDS ORDERED: Cephalexin 250 MG CAP PO SCH (10:15)
[2019-11-28] MEDS ORDERED: Insulin Regular 300 UNITS/3 ML VIAL SC SCH (12:01)
[2019-11-28] MEDS: Vancomycin 1 GM in Premix Bag 1 BAG IVPB SCH (12:11)
[2019-11-28] MEDS: Acetaminophen 325 MG TAB PO PRN ×2 (12:27→23:49)
[2019-11-28] MEDS: Lorazepam 0.5 MG TAB PO PRN ×2 (12:34→21:26)
--- NOTE | 2019-11-28 13:47 | PDOC.HOSPP ---
- Subjective Encounter Date: 11/28/19 Encounter Time: 11:20 Subjective: pt seen this am, dc in progress. - Objective Vital Signs & Weight: Vital Signs (12 hours) Temp Pulse Resp BP Pulse Ox 11/28/19 08:44 81 11/28/19 08:25 97.5 F L 81 18 139/91 H 98 11/28/19 08:00 98 Weight Weight 188 lb 14.978 oz I&O: 11/27/19 11/28/19 11/29/19 06:59 06:59 06:59 Intake Total 4550 1979 1000 Output Total 3 Balance 4550 1979 997 Result Diagrams: 11/26/19 01:36 11/26/19 01:36 Additional Labs: Accuchecks 11/28/19 11/28/19 11/28/19 11:15 08:14 05:53 POC Glucose 436 H 270 H 302 H 11/27/19 11/27/19 20:49 17:46 POC Glucose 427 H 475 H Hospitalist ROS - Medication Medications: Active Medications Generic Name Dose Route Start Last Admin Trade Name Freq PRN Reason Stop Dose Admin Acetaminophen 650 mg 11/26/19 00:58 11/28/19 12:27 Tylenol PO 650 mg Q4H PRN Administration Headache/Fever/Mild Pain (1-3) Famotidine 20 mg 11/27/19 21:00 11/28/19 08:44 Pepcid PO 20 mg BID LAURA Administration Gabapentin 300 mg 11/26/19 09:00 11/28/19 08:44 Neurontin PO 300 mg TID LAURA Administration Ceftriaxone Sodium 1 gm/ 100 mls @ 200 mls/hr 11/26/19 09:00 11/28/19 09:45 Sodium Chloride IVPB Not Given Q24HR [facility] Insulin Human Regular 0 units 11/26/19 13:17 11/28/19 11:42 Humulin R SC 10 units .MODERATE SLIDING SC PRN Administration MODERATE SLIDING SCALE Protocol Levothyroxine Sodium 100 mcg 11/26/19 06:00 11/28/19 05:47 Synthroid PO 100 mcg 0600 LAURA Administration Lisinopril 5 mg 11/26/19 09:00 11/28/19 08:44 Zestril PO 5 mg QAM LAURA Administration Lorazepam 0.5 mg 11/26/19 00:54 11/28/19 12:34 Ativan PO 0.5 mg Q4H PRN Administration Anxiety Ondansetron HCl 4 mg 11/26/19 00:58 11/26/19 08:27 Zofran IVP 4 mg Q6H PRN Administration Nausea/Vomiting Phenazopyridine HCl 97.5 mg 11/26/19 09:00 11/28/19 12:27 Azo Standard PO 97.5 mg PC LAURA Administration Ropinirole HCl 2 mg 11/26/19 21:00 11/27/19 20:41 Requip PO 2 mg HS LAURA Administration Saccharomyces Boulardii 250 mg 11/26/19 09:00 11/28/19 08:44 Florastor PO 250 mg DAILY LAURA Administration Simvastatin 10 mg 11/26/19 21:00 11/27/19 20:41 Zocor PO 10 mg HS LAURA Administration Sodium Chloride 10 ml 11/26/19 09:00 11/28/19 11:46 Flush - Normal Saline IVF 10 ml Q12HR LAURA Administration - Exam Eye: PERRL ENT: normocephalic atraumatic Neck: supple Heart: RRR Respiratory: CTAB, normal chest expansion Hosp A/P - Plan UTI generalized weakness d/t above Uncontrolled DM2 w.. A1c of 11.5 -cw CTX and follow the oli -explaine dto the pt that will hold glipizide and metformin as cr creeping up + oral drugs not much when a1c hits 11. - lantus bid, SSI - aggressive titration and strict diet adherence and close fw w.. PCP Leukocytosis-resolved. if oli back w.. sensitivity - redefine the abx and dc. prob dc in am. 5th After dc orders done, it appears pt has severe MACKEY and ongoing high BG vitals ok, t 98; P 82; BP 158/94 and sats 97%. will hold DC and see how she does.
[2019-11-28] MEDS ORDERED: Fioricet 325/50/40 mg Tablet PO PRN (14:03)
[2019-11-28] MEDS ORDERED: Fioricet 325/50/40 mg Tablet PO SCH (14:15)
[2019-11-28] MEDS ORDERED: HYDROcodone/Acetaminophen 5/325 mg Tablet PO PRN (18:43)
[2019-11-28] MEDS: rOPINIRole HCl 2 MG TAB PO SCH (20:05)
[2019-11-28] MEDS: Simvastatin 5 MG TAB PO SCH (20:05)
[2019-11-28] MEDS: Insulin Glargine 35 UNITS in Pre-Filled Syringe 1 EACH SC SCH (20:38)
[2019-11-29] MEDS: Levothyroxine Sodium 100 MCG TAB PO SCH (06:27)
[2019-11-29] MEDS: Insulin Regular 300 UNITS/3 ML VIAL SC PRN (06:28)
[2019-11-29] MEDS: Famotidine 20 MG TAB PO SCH (09:13)
[2019-11-29] MEDS: cefTRIAXone\\ROCEPHIN 1 GM in Sodium Chloride 0.9% 100 ML IVPB SCH (09:13)
[2019-11-29] MEDS: Insulin Glargine 35 UNITS in Pre-Filled Syringe 1 EACH SC SCH (09:14)
[2019-11-29] MEDS: Gabapentin 300 MG CAP PO SCH (09:14)
[2019-11-29] MEDS: Saccharomyces boulardii 250 MG CAP PO SCH (09:14)
[2019-11-29] MEDS: Phenazopyridine HCl 97.5 MG TABLET PO SCH (09:14)
[2019-11-29] MEDS: Lisinopril 5 MG TAB PO SCH (09:14)
[2019-11-29 10:27] VITALS: BP 143/85; TEMP 98.2
--- NOTE | 2019-11-30 07:23 | DIS ---
DATE OF ADMISSION: 11/25/2019 DATE OF DISCHARGE: 11/29/2019 DISCHARGE DIAGNOSES: 1. Urinary tract infection. 2. Uncontrolled type 2 diabetes mellitus with A1c of 11.5. 3. Leukocytosis, that is resolved. MEDICATIONS: 1. Keflex 500 mg twice a day for 5 days. 2. Sliding scale insulin with regular moderate sliding scale, Lantus 40 units twice a day, that has been changed from her previous home regimen to uptitrated the insulin doses based on the last 2 days of blood glucose reading. 3. Famotidine 40 mg daily. 4. Metformin 1000 mg twice a day. 5. Ropinirole 2 mg daily. 6. Phenergan 25 mg every 6 hours as needed. 7. Lisinopril 5 mg daily as a new prescription. 8. Levothyroxine 100 mcg daily, part of the home regimen. 9. Gabapentin 300 mg 3 times a day. 10. Albuterol two puffs q.4 as needed. PHYSICAL EXAMINATION: VITAL SIGNS: Temperature 97.5, pulse 81, blood pressure 139/91, saturating 98% on room air. GENERAL: The patient is alert, oriented x4. She is not in any acute distress. CARDIOVASCULAR: Rate and rhythm without murmurs, rubs, or gallops. LUNGS: Clear to auscultation bilaterally without wheezing, rales, or rhonchi. ABDOMEN: Soft, nontender, nondistended. Good bowel sounds. Discharge plan discussed and she is agreeable to go home today. She denies any lower quadrant abdominal discomforts. I spent significant amount of time counseling on her diet. [employer] is nearby. She will be expected to adhere to the insulin regimen as well as stick to diet adherence given her uncontrolled blood glucose. HOSPITAL COURSE: This is a 54-year-old female who presented with urinary tract infection as well as uncontrolled type 2 diabetes mellitus. A1c is 11.5. She is on glipizide and metformin and I changed lantus to bid when I saw a1c of 11.5. I have increased the Lantus dose based on the last 2 days of blood glucose readings. Still she has a long way to go. I aggressively uptitrated insulin and need A1c checkup in month or two. Stable to go home today. DISCHARGE INSTRUCTION: Activity as tolerated. Diet: Diabetic diet. Follow up with PCP in one week. Insulin doses needs to be monitored again closely and adjusted. Discharge time took over 30 minutes. PS-- patient had headache and did not feel strong enough to go home later in the evening. Discharge plan cancelled and treating her headache with fioricet and likely to be discharged tomorrow. Job ID: [id number] MTDD
--- NOTE | 2019-11-30 07:23 | DIS ---
DATE OF ADMISSION: 11/25/2019 DATE OF DISCHARGE: 11/29/2019 HOSPITAL COURSE: Ms. Grier is a 54-year-old female with a medical history of type 2 diabetes, presented with suprapubic discomfort and urinary frequency. She was diagnosed with uncomplicated acute urinary tract infection and was treated with initially IV antibiotics. She responded promptly to the antibiotics and was transitioned into oral antibiotics. In addition to that, she was found to have poorly-controlled type 2 diabetes. Her insulin regimen was modified and glucose remained poorly controlled, but improved. The patient was discharged on regimen that was calculated based on correction doses. She was educated regarding injections as well as symptoms of hypoglycemia and required lowering of dosage. In addition to that, the patient was requested to follow her blood glucose measurements and log them in order to follow up with her primary care physician for further modification of her insulin regimen. She was discharged home asymptomatic with no complaints. PHYSICAL EXAMINATION: VITAL SIGNS: Blood pressure 138/84, temperature 98.4 Fahrenheit, 76 pulse, respiratory rate 18, and saturation 97% on room air. GENERAL: Lying comfortably in bed, in no apparent distress. HEART: Regular rate and rhythm. No gallops or murmurs. LUNGS: Clear to auscultation bilaterally. No wheezing, rales, or rhonchi. PSYCHIATRIC: Proper mood and affect. Alert and oriented x3. DISCHARGE MEDICATIONS: New medications: 1. Tylenol 650 mg p.r.n. headache q.4 hours. 2. Keflex 500 mg p.o. q.12 hours for three more days for uncomplicated UTI. 3. Humalog 15 units subcutaneously t.i.d. with meals. 4. Insulin glargine 45 units subcutaneously nightly. Job ID: [id number]
--- NOTE | 2019-12-02 06:03 | PQF ---
BREANNA JASON, ILENE [id number] CLINICAL DOCUMENTATION CLARIFICATION FORM: POST DISCHARGE Addendum to original discharge summary date: ____ Late entry note date: __ DATE:12/02/2019 ATTN: Ilene Cooper Please exercise your independent, professional judgment in responding to the clarification form. Clinical indicators are provided on the bottom of this form for your review Please check appropriate box(s) to clarify if the following diagnosis has been ruled in or ruled out: Sepsis [ ] Ruled in diagnosis [ ] Continue to treat [ ] Resolved [ x] Ruled out diagnosis [ ] Cannot rule out diagnosis [ ] Other diagnosis [ ] Unable to determine For continuity of documentation, please document condition throughout progress notes and discharge summary. Thank You. CLINICAL INDICATORS - SIGNS / SYMPTOMS / LABS Blood culture /2 No growth in 5 days Urine culture /2 No growth at 36 hours Vital signs / BP 131/80, Pulse 124. Resp 23, Temp 98.6 Laboratory 6/ WBC 13.3, Plt 323, Neutrophils9.0, monocytes 0.8 ED notes p3 6/2 SIRS scoring: Yes, Pt did meet at least 2 criteria ED notes p11 6/2 Sepsis, UTI H&P p1 6/2 complaints of having suprapubic abdominal discomfort for the last 4 days H&P p2 6/2 Leukocytosis RISK FACTORS H&P p2 6/2 UTI H&P p2 6/2 DM H&P p2 6/2 Hypothyroidism TREATMENTS MAR 5 IV Vancomycin 1gm MAR 6 IV Cefepime 2gm MAR 6 IVF NS 1L KOURTNEY 11/25 IV Ceftriaxone 1gm AUG 27 Keflex 500mg oral Blood culture 11/24 Urine culture 11/24 (This form is maintained as a part of the permanent medical record) 2014 [employer]. All Rights Reserved [email or web address]
== END 2019-11-29 11:10 | disposition home or self-care (01) | DRG 690 ==
LOC: ERS 18:16 → ONC 22:44
PROVIDERS: ADMIT Internal Medicine; ATTEND Internal Medicine
DX: N39.0 Urinary tract infection, site not specified (principal); E11.65 Type 2 diabetes mellitus with hyperglycemia; F41.9 Anxiety disorder, unspecified; E03.9 Hypothyroidism, unspecified; E78.5 Hyperlipidemia, unspecified; F32.9 Major depressive disorder, single episode, unspecified; E78.00 Pure hypercholesterolemia, unspecified; Z79.899 Other long term (current) drug therapy; Z79.4 Long term (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 insulin; Z79.890 Hormone replacement therapy; Z90.49 Acquired absence of other specified parts of digestive tract; Z88.5 Allergy status to narcotic agent; Z91.040 Latex allergy status; R51 Headache
CPT/HCPCS: 36415; 36416; 71046; 74177; 80048; 80053; 80202; 81003; 81015; 82010; 83036; 83605; 83690; 83735; 83880; 84443; 85025; 87040; 87086; 96361; 96365; 96367; 96375; J0692; J0696; J1815; J2060; J2405; J3370; J3490; J7050; Q9967; S0028

== ENCOUNTER 2020-07-29 15:33 | Outpatient (CLI) | payer MEDICARE ==
--- NOTE | 2020-07-29 16:06 | MMO ---
Bilateral MAMMO Bilat Screen [facility]. CLINICAL HISTORY: Patient is 55 years old and is seen for screening. The patient has no family history of breast cancer. The patient has no personal history of cancer. VIEWS: The views performed were: bilateral craniocaudal with tomosynthesis and bilateral mediolateral oblique with tomosynthesis. FILMS COMPARED: The present examination has been compared to prior imaging studies performed at [facility] on 11/04/2014, 02/01/2016, 05/07/2017 and 07/05/2018. This study has been interpreted with the assistance of computer-aided detection. MAMMOGRAM FINDINGS: The breasts are almost entirely fat. There are no suspicious masses, suspicious calcifications, or new areas of architectural distortion. IMPRESSION: THERE IS NO MAMMOGRAPHIC EVIDENCE OF MALIGNANCY. A ROUTINE FOLLOW-UP MAMMOGRAM IN 1 YEAR IS RECOMMENDED. THE RESULTS OF THIS EXAM WERE SENT TO THE PATIENT. ACR BI-RADS Category 1 - Negative MAMMOGRAPHY NOTE: 1. A negative mammogram report should not delay a biopsy if a dominant of clinically suspicious mass is present. 2. Approximately 10% to 15% of breast cancers are not detected by mammography. 3. Adenosis and dense breasts may obscure an underlying neoplasm. Reported by: OSCAR NAIDU MD Electonically Signed: [id number]
== END 2020-07-29 15:34 | disposition home or self-care (01) ==
LOC: BICMAMMO 15:33
PROVIDERS: ATTEND Nurse Practitioner Family
DX: Z12.31 Encounter for screening mammogram for malignant neoplasm of breast (principal)
CPT/HCPCS: 77063; 77067

== ENCOUNTER 2020-10-07 17:33 | Emergency (ER) | payer MEDICARE ==
[2020-10-07 18:18] LABS: #Basophils 0.1 thou/uL (0.0-0.2); #Eosinphils 0.3 thou/uL (0.0-0.7); #Lymphocytes 4.1 thou/uL (1.20-3.40); #Monocytes 1.1 thou/uL (0.11-0.59); #Neutrophils 8.8 thou/uL (1.40-6.50); %Basophils 0.8 % (0.0-1.0); %Eosinophils 2.4 % (0.0-10.0); %Lymphocytes 28.1 % (21.0-51.0); %Monocytes 7.6 % (0.0-10.0); %Neutrophils 61.1 % (42.0-75.0); Hemoglobin 12.2 g/dL (12.0-16.0); Mean Corpuscular HGB CONC 34.2 g/dL (32.0-36.0); Mean Corpuscular Hemoglobin 28.9 pg (27.0-31.0); Mean Corpuscular Volume 84.5 fL (78.0-98.0); Mean Platelet Volume 7.8 fL (7.4-10.4); Platelet Count 314 thou/uL (130-400); RBC Distribution Width 13.2 % (11.5-14.5); Red Blood Cell (RBC) Count 4.21 mill/uL (4.20-5.40); White Blood Cell (WBC) Count 14.4 thou/uL (4.8-10.8)
[2020-10-07 18:33] LABS: Bacteria/HPF None Seen HPF (None Seen); Bilirubin Negative (Negative); Blood, Urine Negative (Negative); Clarity Turbid (Clear); Glucose, Urine (Dipstick) 30 mg/dL (Negative); Ketone, Urine Negative (Negative); Leukocyte 250 Leu/uL (Negative); Nitrite Negative (Negative); Protein, Urine (Dipstick) 20 mg/dL (Neg-Trace); Specific Gravity, Urine 1.025 (1.002-1.036); WBC/HPF 21-50 HPF (0-3)
[2020-10-07 18:39] LABS: ALT (SGPT) 29 U/L (8-55); AST (SGOT) 26 U/L (5-34); Albumin 4.6 g/dL (3.5-5.0); Alkaline Phosphatase 162 U/L (40-110); Anion Gap 19 mmol/L (10-20); BUN (Urea Nitrogen) 34 mg/dL (9.8-20.1); Bilirubin, Total 0.4 mg/dL (0.2-1.2); Calc. Creatinine Clearance 0 mL/min (70-130); Calcium 10.2 mg/dL (7.8-10.44); Carbon Dioxide 19 mmol/L (22-29); Chloride 103 mmol/L (98-107); Globulin 3.5 g/dL (2.4-3.5); Glucose 183 mg/dL (70-105); Potassium 4.5 mmol/L (3.5-5.1); Protein, Total 8.1 g/dL (6.0-8.3); Sodium 136 mmol/L (136-145)
[2020-10-07] MEDS ORDERED: Ondansetron PF 4 MG/2 ML Vial ONE (19:34)
[2020-10-07] MEDS ORDERED: Ketorolac Tromethamine 30 MG/ML VIAL ONE (20:31)
== END 2020-10-07 21:30 | disposition home or self-care (01) ==
LOC: ERS 17:33
DX: N39.0 Urinary tract infection, site not specified (principal); R19.7 Diarrhea, unspecified; E11.9 Type 2 diabetes mellitus without complications; E03.9 Hypothyroidism, unspecified; E78.5 Hyperlipidemia, unspecified
CPT/HCPCS: 36415; 74177; 80053; 81003; 81015; 83690; 85025; 96374; 96375; J1885; J2405; Q9967

== ENCOUNTER 2021-01-22 12:39 | Inpatient (IN) | payer MEDICARE, MEDICAID ==
[2021-01-22 13:05] LABS: #Basophils 0.1 thou/uL (0.0-0.2); #Eosinphils 0.1 thou/uL (0.0-0.7); #Lymphocytes 3.6 thou/uL (1.20-3.40); #Monocytes 1.2 thou/uL (0.11-0.59); #Neutrophils 13.1 thou/uL (1.40-6.50); %Basophils 0.6 % (0.0-1.0); %Eosinophils 0.7 % (0.0-10.0); %Lymphocytes 19.8 % (21.0-51.0); %Monocytes 6.4 % (0.0-10.0); %Neutrophils 72.5 % (42.0-75.0); Hemoglobin 12.6 g/dL (12.0-16.0); Mean Corpuscular HGB CONC 34.8 g/dL (32.0-36.0); Mean Corpuscular Hemoglobin 29.9 pg (27.0-31.0); Mean Corpuscular Volume 85.9 fL (78.0-98.0); Mean Platelet Volume 8.3 fL (7.4-10.4); Platelet Count 292 thou/uL (130-400); Red Blood Cell (RBC) Count 4.22 mill/uL (4.20-5.40); White Blood Cell (WBC) Count 18.1 thou/uL (4.8-10.8)
[2021-01-22 13:28] LABS: ALT (SGPT) 20 U/L (8-55); AST (SGOT) 19 U/L (5-34); Albumin 4.4 g/dL (3.5-5.0); Alkaline Phosphatase 172 U/L (40-110); Anion Gap 17 mmol/L (10-20); BUN (Urea Nitrogen) 20 mg/dL (9.8-20.1); Bilirubin, Total 0.5 mg/dL (0.2-1.2); Calc. Creatinine Clearance 0 mL/min (70-130); Calcium 9.4 mg/dL (7.8-10.44); Carbon Dioxide 20 mmol/L (22-29); Chloride 104 mmol/L (98-107); Globulin 3.4 g/dL (2.4-3.5); Glucose 361 mg/dL (70-105); Potassium 4.6 mmol/L (3.5-5.1); Protein, Total 7.8 g/dL (6.0-8.3); Sodium 136 mmol/L (136-145)
[2021-01-22 14:41] LABS: Bacteria/HPF 4+ HPF (None Seen); Bilirubin Negative (Negative); Blood, Urine 3+ (Negative); Glucose, Urine (Dipstick) 150 mg/dL (Negative); Ketone, Urine Negative (Negative); Leukocyte 500 Leu/uL (Negative); Nitrite Negative (Negative); Protein, Urine (Dipstick) 300 mg/dL (Neg-Trace); RBC/HPF Greater than 50 HPF (0-3); Specific Gravity, Urine 1.025 (1.002-1.036); Squamous Epithelial None Seen HPF (0-3); Urobilinogen Normal mg/dL (Less than 2); WBC/HPF Greater than 50 HPF (0-3)
[2021-01-22 14:42] LABS: Clarity Turbid (Clear)
[2021-01-22] MEDS ORDERED: Ketorolac Tromethamine 30 MG/ML VIAL ONE (14:45)
[2021-01-22] MEDS ORDERED: Ondansetron PF 4 MG/2 ML Vial ONE (14:45)
[2021-01-22] MEDS ORDERED: Fentanyl 100 MCG/2 ML VIAL ONE (17:07)
[2021-01-22 18:25] LABS: Lactic Acid 2.6 mmol/L (0.5-2.2)
[2021-01-22] MEDS ORDERED: Senokot S 8.6-50 MG TAB PO PRN (20:07)
[2021-01-22] MEDS ORDERED: Ondansetron ODT 4 MG TAB PO PRN (20:07)
[2021-01-22] MEDS ORDERED: Promethazine 25 MG TAB PO PRN (20:09)
[2021-01-22] MEDS ORDERED: Dextrose 5% in Water 1,000 ML IV PRN (20:15)
[2021-01-22] MEDS ORDERED: HumaLOG 300 UNITS/3 ML VIAL SC PRN (20:15)
[2021-01-22] MEDS ORDERED: Dextrose 50% Abboject 50 ML SYRINGE SLOW IVP PRN (20:15)
[2021-01-22] MEDS ORDERED: Albuterol 200 PUFF (6.7GM INHALER) INH PRN (20:49)
[2021-01-22 20:55] VITALS: BMI 34.4
[2021-01-22] MEDS ORDERED: Lantus 1000 UNITS/10 ML VIAL SC SCH (21:00)
[2021-01-22] MEDS: Sodium Chloride 0.9% 1,000 ML IV SCH (21:13)
[2021-01-22] MEDS: Gabapentin 100 MG CAP PO SCH (21:14)
[2021-01-22] MEDS: FLUoxetine HCl 20 MG CAP PO SCH (21:14)
[2021-01-22] MEDS: Lantus 1000 UNITS/10 ML VIAL SC SCH (21:15)
[2021-01-22] MEDS: Fentanyl 100 MCG/2 ML VIAL SLOW IVP PRN (21:15)
[2021-01-22] MEDS: rOPINIRole HCl 2 MG TAB PO SCH (21:15)
[2021-01-22] MEDS: Simvastatin 10 MG TAB PO SCH (22:34)
[2021-01-23] MEDS: Fentanyl 100 MCG/2 ML VIAL SLOW IVP PRN (02:08)
[2021-01-23] MEDS: Sodium Chloride 0.9% 1,000 ML IV SCH (05:15)
[2021-01-23] MEDS: Levothyroxine Sodium 100 MCG TAB PO SCH (05:16)
[2021-01-23] MEDS: HumaLOG 300 UNITS/3 ML VIAL SC PRN ×3 (05:19→16:49)
[2021-01-23 05:56] LABS: #Eosinphils 0.1 thou/uL (0.0-0.7); #Lymphocytes 2.3 thou/uL (1.20-3.40); #Monocytes 0.6 thou/uL (0.11-0.59); %Basophils 0.4 % (0.0-1.0); %Eosinophils 1.6 % (0.0-10.0); %Lymphocytes 28.3 % (21.0-51.0); %Monocytes 7.3 % (0.0-10.0); %Neutrophils 62.3 % (42.0-75.0); Hemoglobin 9.7 g/dL (12.0-16.0); Mean Corpuscular HGB CONC 34.9 g/dL (32.0-36.0); Mean Corpuscular Hemoglobin 30.6 pg (27.0-31.0); Mean Corpuscular Volume 87.6 fL (78.0-98.0); Mean Platelet Volume 8.1 fL (7.4-10.4); Platelet Count 165 thou/uL (130-400); Red Blood Cell (RBC) Count 3.17 mill/uL (4.20-5.40); White Blood Cell (WBC) Count 8.1 thou/uL (4.8-10.8)
[2021-01-23 06:14] LABS: Anion Gap 12 mmol/L (10-20); BUN (Urea Nitrogen) 23 mg/dL (9.8-20.1); Calc. Creatinine Clearance 60 mL/min (70-130); Calcium 8.1 mg/dL (7.8-10.44); Carbon Dioxide 22 mmol/L (22-29); Chloride 106 mmol/L (98-107); Glucose 465 mg/dL (70-105); Potassium 4.7 mmol/L (3.5-5.1); Sodium 135 mmol/L (136-145)
[2021-01-23] MEDS ORDERED: glipiZIDE 5 MG TAB PO SCH (09:15)
[2021-01-23] MEDS: Gabapentin 100 MG CAP PO SCH ×3 (09:51→21:26)
[2021-01-23] MEDS: Acetaminophen 325 MG TAB PO PRN ×2 (09:52→13:50)
[2021-01-23] MEDS: Enoxaparin Sodium 40 MG/0.4 ML SYRINGE SC SCH (09:53)
[2021-01-23] MEDS: FLUoxetine HCl 20 MG CAP PO SCH ×2 (09:53→21:26)
[2021-01-23] MEDS: cefTRIAXone\\ROCEPHIN 1 GM in Sodium Chloride 0.9% 100 ML IVPB SCH (09:54)
[2021-01-23 10:55] LABS: SARS-CoV-2 NAA Rapid Test Not Detected (NotDetected)
[2021-01-23] MEDS ORDERED: Promethazine 25 MG TAB PO PRN (11:45)
[2021-01-23] MEDS: diphenhydrAMINE 25 MG CAP PO PRN ×2 (14:49→21:26)
[2021-01-23] MEDS: glipiZIDE 5 MG TAB PO SCH (16:48)
[2021-01-23] MEDS: Simvastatin 10 MG TAB PO SCH (21:26)
[2021-01-23] MEDS: rOPINIRole HCl 2 MG TAB PO SCH (21:26)
[2021-01-23] MEDS: Lantus 1000 UNITS/10 ML VIAL SC SCH (21:28)
[2021-01-24] MEDS: Levothyroxine Sodium 100 MCG TAB PO SCH (06:17)
[2021-01-24] MEDS: glipiZIDE 5 MG TAB PO SCH (06:17)
[2021-01-24] MEDS: HumaLOG 300 UNITS/3 ML VIAL SC PRN (06:18)
[2021-01-24] MEDS: FLUoxetine HCl 20 MG CAP PO SCH (08:24)
[2021-01-24] MEDS: Gabapentin 100 MG CAP PO SCH (08:25)
[2021-01-24] MEDS: Enoxaparin Sodium 40 MG/0.4 ML SYRINGE SC SCH (08:33)
[2021-01-24 08:34] VITALS: BP 133/88; TEMP 97.9
[2021-01-24 09:35] LABS: Hemoglobin 10.3 g/dL (12.0-16.0); Mean Corpuscular HGB CONC 34.2 g/dL (32.0-36.0); Mean Corpuscular Hemoglobin 29.3 pg (27.0-31.0); Mean Corpuscular Volume 85.8 fL (78.0-98.0); Mean Platelet Volume 8.3 fL (7.4-10.4); Platelet Count 191 thou/uL (130-400); RBC Distribution Width 12.6 % (11.5-14.5); White Blood Cell (WBC) Count 7.6 thou/uL (4.8-10.8)
[2021-01-24] MEDS: cefTRIAXone\\ROCEPHIN 1 GM in Sodium Chloride 0.9% 100 ML IVPB SCH (10:01)
[2021-01-26 16:49] LABS: EliA Celiac New Method **** NEW METHOD ****; Gliadin IgA Ab, Deamidated 0.2 EliAU/mL (<7 Negative); Gliadin IgG Ab, Deamidated Less than 0.4 EliAU/mL (<7 Negative); t-Transglutaminase (tTG) IgA 0.1 EliAU/mL (<7 Negative); t-Transglutaminase (tTG) IgG Less than 0.6 EliAU/mL (<7 Negative)
== END 2021-01-24 11:00 | disposition home or self-care (01) | DRG 872 ==
LOC: ERS 12:39 → ERHOLD 17:32 → SURG A 20:05
PROVIDERS: ADMIT Internal Medicine; ATTEND Internal Medicine
DX: A41.51 Sepsis due to Escherichia coli [E. coli] (principal); N10 Acute pyelonephritis; N17.9 Acute kidney failure, unspecified; E87.2 Acidosis; Z20.822 Contact with and (suspected) exposure to COVID-19; E03.9 Hypothyroidism, unspecified; K58.9 Irritable bowel syndrome, unspecified; K76.0 Fatty (change of) liver, not elsewhere classified; E78.5 Hyperlipidemia, unspecified; E78.00 Pure hypercholesterolemia, unspecified; F41.9 Anxiety disorder, unspecified; F31.9 Bipolar disorder, unspecified; D35.02 Benign neoplasm of left adrenal gland; N18.30 Chronic kidney disease, stage 3 unspecified; E11.22 Type 2 diabetes mellitus with diabetic chronic kidney disease; E66.9 Obesity, unspecified; R51.9 Headache, unspecified; Z68.34 Body mass index [BMI] 34.0-34.9, adult; Z88.5 Allergy status to narcotic agent; Z90.49 Acquired absence of other specified parts of digestive tract; Z95.828 Presence of other vascular implants and grafts; Z90.710 Acquired absence of both cervix and uterus; Z87.442 Personal history of urinary calculi; Z91.040 Latex allergy status; Z90.89 Acquired absence of other organs; Z79.890 Hormone replacement therapy; Z79.4 Long term (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 insulin; Z79.899 Other long term (current) drug therapy; Q63.1 Lobulated, fused and horseshoe kidney; Z80.1 Family history of malignant neoplasm of trachea, bronchus and lung
CPT/HCPCS: 36415; 36416; 51701; 71045; 74176; 80048; 80053; 81003; 81015; 83516; 83605; 85025; 85027; 87040; 87077; 87086; 87186; 96365; 96366; 96367; 96375; J0500; J0696; J1650; J1815; J1885; J2405; J3010; J3490; U0002; U0003; U0005

== ENCOUNTER 2021-03-01 15:17 | Outpatient (CLI) | payer MEDICARE, MEDICAID | END 2021-03-01 15:18 | disposition home or self-care (01) | LOC: BICULT 15:17 | PROVIDERS: ATTEND Nurse Practitioner Family | DX: R31.9 Hematuria, unspecified (principal) | CPT/HCPCS: 76770 ==

== ENCOUNTER 2021-03-24 14:15 | Outpatient (CLI) | payer MEDICARE, MEDICAID | END 2021-03-24 14:16 | disposition home or self-care (01) | LOC: BICRAD 14:15 | PROVIDERS: ATTEND Nurse Practitioner Family | DX: M89.8X1 Other specified disorders of bone, shoulder (principal) ==

== ENCOUNTER 2021-06-04 09:35 | Emergency (ER) | payer MEDICARE, MEDICAID, OTHER ==
[2021-06-04] MEDS ORDERED: Fentanyl 100 MCG/2 ML VIAL ONE (10:05)
[2021-06-04 10:13] LABS: #Basophils 0.1 thou/uL (0.0-0.2); #Eosinphils 0.2 thou/uL (0.0-0.7); #Monocytes 0.6 thou/uL (0.11-0.59); #Neutrophils 7.2 thou/uL (1.40-6.50); %Basophils 0.9 % (0.0-1.0); %Eosinophils 1.6 % (0.0-10.0); %Lymphocytes 26.9 % (21.0-51.0); %Monocytes 5.8 % (0.0-10.0); %Neutrophils 64.9 % (42.0-75.0); Hemoglobin 12.4 g/dL (12.0-16.0); Mean Corpuscular HGB CONC 32.4 g/dL (32.0-36.0); Mean Corpuscular Hemoglobin 29.1 pg (27.0-31.0); Mean Corpuscular Volume 89.8 fL (78.0-98.0); Mean Platelet Volume 7.5 fL (7.4-10.4); Platelet Count 266 thou/uL (130-400); RBC Distribution Width 12.2 % (11.5-14.5); Red Blood Cell (RBC) Count 4.26 mill/uL (4.20-5.40); White Blood Cell (WBC) Count 11.1 thou/uL (4.8-10.8)
[2021-06-04] MEDS ORDERED: Iopamidol-370 76% 500 ML 1 ML ONE (10:26)
[2021-06-04 10:34] LABS: ALT (SGPT) 28 U/L (8-55); AST (SGOT) 63 U/L (5-34); Albumin 3.9 g/dL (3.5-5.0); Alkaline Phosphatase 117 U/L (40-110); Anion Gap 19 mmol/L (10-20); BUN (Urea Nitrogen) 25 mg/dL (9.8-20.1); Bilirubin, Total 0.4 mg/dL (0.2-1.2); Calc. Creatinine Clearance 0 mL/min (70-130); Calcium 9.1 mg/dL (7.8-10.44); Carbon Dioxide 16 mmol/L (22-29); Chloride 107 mmol/L (98-107); Globulin 3.1 g/dL (2.4-3.5); Glucose 165 mg/dL (70-105); Lipase 26 U/L (8-78); Potassium 4.5 mmol/L (3.5-5.1); Sodium 137 mmol/L (136-145)
[2021-06-04] MEDS ORDERED: Lidocaine 1% w/Epinephrine 1:100K 20 ML VIAL ONE (11:39)
[2021-06-04 12:39] LABS: Bilirubin Negative (Negative); Blood, Urine Negative (Negative); Clarity Clear (Clear); Glucose, Urine (Dipstick) 70 mg/dL (Negative); Ketone, Urine Negative (Negative); Leukocyte 500 Leu/uL (Negative); Nitrite Negative (Negative); Protein, Urine (Dipstick) Negative (Neg-Trace); RBC/HPF 0-3 HPF (0-3); Specific Gravity, Urine 1.034 (1.002-1.036); Squamous Epithelial 0-3 HPF (0-3); Urobilinogen Normal mg/dL (Less than 2)
[2021-06-04 12:43] LABS: Bacteria/HPF Rare-Few HPF (None Seen)
== END 2021-06-04 12:28 | disposition home or self-care (01) ==
LOC: ERS 09:35
DX: S02.40CA Maxillary fracture, right side, initial encounter for closed fracture (principal); S01.512A Laceration without foreign body of oral cavity, initial encounter; K08.109 Complete loss of teeth, unspecified cause, unspecified class; E11.9 Type 2 diabetes mellitus without complications; E78.00 Pure hypercholesterolemia, unspecified; E78.5 Hyperlipidemia, unspecified; E03.9 Hypothyroidism, unspecified; Z79.899 Other long term (current) drug therapy; V89.0XXA Person injured in unspecified motor-vehicle accident, nontraffic, initial encounter
CPT/HCPCS: 12013; 70450; 70486; 71045; 71260; 72125; 74177; 80053; 81003; 81015; 83690; 84484; 85025; 93005; 96374; G0390; J3010; Q9967

== ENCOUNTER 2021-07-25 17:10 | Emergency (ER) | payer MEDICARE, MEDICAID ==
[2021-07-25] MEDS ORDERED: Ketorolac Tromethamine 30 MG/ML VIAL ONE (17:52)
[2021-07-25 18:09] LABS: Bilirubin Negative (Negative); Blood, Urine Negative (Negative); Clarity Clear (Clear); Glucose, Urine (Dipstick) 150 mg/dL (Negative); Ketone, Urine Negative (Negative); Leukocyte 75 Leu/uL (Negative); Nitrite Negative (Negative); Protein, Urine (Dipstick) 20 mg/dL (Neg-Trace); RBC/HPF 0-3 HPF (0-3); Specific Gravity, Urine 1.027 (1.002-1.036); Squamous Epithelial 0-3 HPF (0-3); Urobilinogen Normal mg/dL (Less than 2)
[2021-07-25 18:10] LABS: Bacteria/HPF 1+ HPF (None Seen)
[2021-07-25 18:25] LABS: #Basophils 0.1 thou/uL (0.0-0.2); #Eosinphils 0.1 thou/uL (0.0-0.7); #Lymphocytes 1.9 thou/uL (1.20-3.40); #Monocytes 0.6 thou/uL (0.11-0.59); %Basophils 1.1 % (0.0-1.0); %Eosinophils 1.4 % (0.0-10.0); %Lymphocytes 28.7 % (21.0-51.0); %Monocytes 8.4 % (0.0-10.0); %Neutrophils 60.4 % (42.0-75.0); Hemoglobin 11.9 g/dL (12.0-16.0); Mean Corpuscular HGB CONC 34.4 g/dL (32.0-36.0); Mean Corpuscular Hemoglobin 28.8 pg (27.0-31.0); Mean Corpuscular Volume 83.8 fL (78.0-98.0); Mean Platelet Volume 7.8 fL (7.4-10.4); Platelet Count 230 thou/uL (130-400); RBC Distribution Width 12.8 % (11.5-14.5); Red Blood Cell (RBC) Count 4.15 mill/uL (4.20-5.40); White Blood Cell (WBC) Count 6.6 thou/uL (4.8-10.8)
[2021-07-25 18:48] LABS: Anion Gap 15 mmol/L (10-20); BUN (Urea Nitrogen) 23 mg/dL (9.8-20.1); Calc. Creatinine Clearance 0 mL/min (70-130); Carbon Dioxide 20 mmol/L (22-29); Chloride 104 mmol/L (98-107); Potassium 4.1 mmol/L (3.5-5.1); Sodium 135 mmol/L (136-145)
[2021-07-25 18:49] LABS: ALT (SGPT) 19 U/L (8-55); AST (SGOT) 29 U/L (5-34); Albumin 3.9 g/dL (3.5-5.0); Alkaline Phosphatase 133 U/L (40-110); Bilirubin, Total 0.3 mg/dL (0.2-1.2); Globulin 3.8 g/dL (2.4-3.5); Glucose 299 mg/dL (70-105); Lipase 45 U/L (8-78); Protein, Total 7.7 g/dL (6.0-8.3)
[2021-07-26 08:16] LABS: SARS-CoV-2 PCR by NAA DETECTED (NotDetected)
== END 2021-07-25 19:47 | disposition home or self-care (01) ==
LOC: ERS 17:10
DX: N12 Tubulo-interstitial nephritis, not specified as acute or chronic (principal); E66.9 Obesity, unspecified; E11.9 Type 2 diabetes mellitus without complications; E03.9 Hypothyroidism, unspecified; E78.5 Hyperlipidemia, unspecified; Z79.899 Other long term (current) drug therapy; Z79.84 Long term (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 oral hypoglycemic drugs; Z79.4 Long term (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 insulin
CPT/HCPCS: 74176; 80053; 83690; 85025; U0003; U0005; 81003; 81015; 96374; J1885

== ENCOUNTER 2021-08-12 08:23 | Outpatient (CLI) | payer OTHER, MEDICARE, MEDICAID ==
[2021-08-12] MEDS ORDERED: Iopamidol 370 76% 100 ML VIAL ONE (09:23)
== END 2021-08-12 08:24 | disposition home or self-care (01) ==
LOC: CT 08:23
PROVIDERS: ATTEND Surgery
DX: R10.9 Unspecified abdominal pain (principal); E27.8 Other specified disorders of adrenal gland
CPT/HCPCS: 74177; 82565; Q9967

== ENCOUNTER → 2021-10-18 | Day surgery (SDC) | payer MEDICARE, MEDICAID | END | disposition home or self-care (01) | LOC: SDC 14:01 | PROVIDERS: ATTEND Surgery | DX: K21.9 Gastro-esophageal reflux disease without esophagitis (principal); K44.9 Diaphragmatic hernia without obstruction or gangrene; Z88.5 Allergy status to narcotic agent; Z91.040 Latex allergy status | CPT/HCPCS: 91010 ==

== ENCOUNTER 2021-11-11 11:59 | Outpatient (CLI) | payer MEDICARE, MEDICAID ==
[2021-11-11 12:35] LABS: #Basophils 0.1 10x3/uL (0.0-0.2); #Eosinphils 0.2 10x3/uL (0.0-0.5); #Monocytes 0.7 10x3/uL (0.0-1.1); #Neutrophils 8.3 10x3/uL (1.5-8.4); %Basophils 0.4 % (0.0-2.0); %Eosinophils 1.4 % (0.0-6.0); %Lymphocytes 19.1 % (18.0-47.0); %Monocytes 6.2 % (0.0-10.0); %Neutrophils 71.3 % (40.0-75.0); Hemoglobin 11.9 g/dL (12.0-15.5); Mean Corpuscular HGB CONC 32.3 g/dL (32.0-36.0); Mean Corpuscular Hemoglobin 28.4 pg (27.0-33.0); Mean Corpuscular Volume 87.8 fl (81.6-98.3); Mean Platelet Volume 11.3 fl (7.4-10.4); Platelet Count 264 10x3/uL (150-450); RBC Distribution Width 13.4 % (11.5-14.5); Red Blood Cell (RBC) Count 4.19 10x6/uL (3.90-5.03); White Blood Cell (WBC) Count 11.7 10x3/uL (3.5-10.5)
[2021-11-11 12:59] LABS: ALT (SGPT) 14 U/L (8-55); AST (SGOT) 18 U/L (5-34); Albumin 4.6 g/dL (3.5-5.0); Alkaline Phosphatase 124 U/L (40-110); Anion Gap 21 mmol/L (10-20); BUN (Urea Nitrogen) 18 mg/dL (9.8-20.1); Bilirubin, Total 0.4 mg/dL (0.2-1.2); Calc. Creatinine Clearance 0 mL/min (70-130); Calcium 9.8 mg/dL (7.8-10.44); Carbon Dioxide 19 mmol/L (22-29); Chloride 104 mmol/L (98-107); Globulin 2.8 g/dL (2.4-3.5); Glucose 191 mg/dL (70-105); Potassium 4.6 mmol/L (3.5-5.1); Protein, Total 7.4 g/dL (6.0-8.3); Sodium 139 mmol/L (136-145)
[2021-11-11 23:49] LABS: SARS-CoV-2 PCR by NAA Not Detected (NotDetected)
== END 2021-11-11 12:00 | disposition home or self-care (01) ==
LOC: LABBT 11:59
PROVIDERS: ATTEND Surgery
DX: Z01.818 Encounter for other preprocedural examination (principal); K44.9 Diaphragmatic hernia without obstruction or gangrene; K21.9 Gastro-esophageal reflux disease without esophagitis; Z20.822 Contact with and (suspected) exposure to COVID-19
CPT/HCPCS: 80053; 85025; 93005; U0003; U0005; 93010

== ENCOUNTER 2021-11-16 05:44 | Inpatient (IN) | payer MEDICARE, MEDICAID ==
[2021-11-16] MEDS ORDERED: CEFAZOLIN 2 GM VIAL ONE ×2 (06:35→07:25)
[2021-11-16] MEDS ORDERED: Lidocaine 1% MPF 2 ML VIAL ONE (06:36)
[2021-11-16] MEDS ORDERED: Sodium Chloride 0.9% 0 ML ONE (06:36)
[2021-11-16] MEDS ORDERED: Dexmedetomidine 200 MCG/2 ML VIAL ONE (06:52)
[2021-11-16] MEDS ORDERED: fentaNYL Citrate/PF 100 MCG/2 ML SYRINGE ONE ×2 (06:52→10:05)
[2021-11-16] MEDS ORDERED: Bupivacaine 0.25% 10 ML VIAL ONE (06:59)
[2021-11-16] MEDS ORDERED: Lidocaine 1% w/Epinephrine 1:100K 20 ML VIAL ONE (06:59)
[2021-11-16] MEDS ORDERED: Midazolam HCl 2 mg/2 ml Vial ONE (07:19)
[2021-11-16] MEDS ORDERED: Sodium Chloride 0.9% 100 ML ONE (07:25)
[2021-11-16] MEDS ORDERED: Pantoprazole 40 MG VIAL ONE (07:28)
[2021-11-16] MEDS ORDERED: Promethazine HCl 25 MG/ML VIAL IM PRN ×3 (09:45→10:02)
[2021-11-16] MEDS ORDERED: Dextrose 50% Abboject 50 ML SYRINGE SLOW IVP PRN (09:45)
[2021-11-16] MEDS ORDERED: Hydrocodone-Acetamin 15 ML UDCUP PO PRN (09:45)
[2021-11-16] MEDS ORDERED: diphenhydrAMINE 50 MG/ML VIAL IVP PRN ×2 (09:45→10:02)
[2021-11-16] MEDS ORDERED: Dextrose 5% in Water 1,000 ML IV PRN (09:45)
[2021-11-16] MEDS ORDERED: Ondansetron PF 4 MG/2 ML Vial IVP PRN ×2 (09:45→10:02)
[2021-11-16] MEDS ORDERED: hydrALAZINE 20 MG/ML VIAL SLOW IVP PRN (09:45)
[2021-11-16] MEDS ORDERED: Promethazine HCl 25 MG/ML VIAL IVPB PRN (10:01)
[2021-11-16] MEDS ORDERED: Meperidine HCl/PF 25 MG/ML VIAL SLOW IVP PRN (10:01)
[2021-11-16] MEDS ORDERED: Ondansetron HCl/PF 4 MG/2 ML Vial IVP PRN (10:01)
[2021-11-16] MEDS ORDERED: Naloxone HCl 0.4 mg/ml Vial IV PRN (10:02)
[2021-11-16] MEDS ORDERED: diphenhydrAMINE 50 MG/ML VIAL IM PRN (10:02)
[2021-11-16] MEDS ORDERED: diphenhydrAMINE 25 MG CAP PO PRN (10:02)
[2021-11-16] MEDS ORDERED: Zolpidem Tartrate 5 MG TAB PO PRN (10:02)
[2021-11-16] MEDS ORDERED: fentaNYL Citrate/PF 2,000 MCG in Sodium Chloride 0.9% 60 ML IV PRN (10:02)
[2021-11-16] MEDS ORDERED: Communication Order-Pharmacy FS PRN (10:15)
[2021-11-16] MEDS: Ketorolac Tromethamine 30 MG/ML VIAL IVP SCH ×3 (11:12→23:34)
[2021-11-16] MEDS: D5 1/2 NS w/20 mEq KCL 1,000 ML IV SCH ×2 (11:32→21:03)
[2021-11-16 12:07] VITALS: BMI 28.2
[2021-11-16] MEDS: CEFAZOLIN 2 GM in Sodium Chloride 0.9% 100 ML IVPB SCH ×2 (15:32→23:34)
[2021-11-16] MEDS ORDERED: HumaLOG 300 UNITS/3 ML VIAL SC PRN (16:30)
[2021-11-17] MEDS: D5 1/2 NS w/20 mEq KCL 1,000 ML IV SCH ×2 (02:52→11:41)
[2021-11-17] MEDS: Ketorolac Tromethamine 30 MG/ML VIAL IVP SCH ×2 (05:54→11:41)
[2021-11-17 06:53] LABS: #Eosinphils 0.3 thou/uL (0.0-0.7); #Lymphocytes 2.3 thou/uL (1.20-3.40); #Monocytes 0.6 thou/uL (0.11-0.59); #Neutrophils 5.8 thou/uL (1.40-6.50); %Basophils 0.2 % (0.0-1.0); %Lymphocytes 25.7 % (21.0-51.0); %Neutrophils 64.1 % (42.0-75.0); Hemoglobin 9.8 g/dL (12.0-16.0); Mean Corpuscular HGB CONC 32.5 g/dL (32.0-36.0); Mean Corpuscular Hemoglobin 29.6 pg (27.0-31.0); Mean Platelet Volume 8.3 fL (7.4-10.4); Platelet Count 179 thou/uL (130-400); RBC Distribution Width 12.7 % (11.5-14.5); Red Blood Cell (RBC) Count 3.33 mill/uL (4.20-5.40)
[2021-11-17 07:13] LABS: Anion Gap 11 mmol/L (10-20); BUN (Urea Nitrogen) 12 mg/dL (9.8-20.1); Calc. Creatinine Clearance 83 mL/min (70-130); Calcium 8.3 mg/dL (7.8-10.44); Carbon Dioxide 26 mmol/L (22-29); Chloride 104 mmol/L (98-107); Glucose 157 mg/dL (70-105); Potassium 4.2 mmol/L (3.5-5.1); Sodium 137 mmol/L (136-145)
[2021-11-17 08:24] VITALS: TEMP 98.2
[2021-11-17] MEDS ORDERED: DC PCA Order Set 1 EACH FS ONE (08:24)
[2021-11-17] MEDS ORDERED: Hydrocodone-Acetamin 15 ML UDCUP PO PRN (08:24)
[2021-11-17] MEDS ORDERED: Fentanyl 100 MCG/2 ML VIAL SLOW IVP PRN (08:25)
[2021-11-17] MEDS ORDERED: Enoxaparin Sodium 40 MG/0.4 ML SYRINGE SC SCH (09:00)
[2021-11-17] MEDS ORDERED: Pantoprazole 40 MG VIAL IVP SCH (09:00)
[2021-11-17 16:19] VITALS: BP 138/90
== END 2021-11-17 16:39 | disposition home or self-care (01) | DRG 328 ==
LOC: SDC 05:44 → T4-A 09:46
PROVIDERS: ADMIT Surgery; ATTEND Surgery
PROC: 0DV44ZZ Restriction of Esophagogastric Junction, Percutaneous Endoscopic Approach (ICD-10-PCS; principal; 2021-11-16)
PROC: 0DNW4ZZ Release Peritoneum, Percutaneous Endoscopic Approach (ICD-10-PCS; 2021-11-16)
DX: K21.9 Gastro-esophageal reflux disease without esophagitis (principal); K44.9 Diaphragmatic hernia without obstruction or gangrene; E78.00 Pure hypercholesterolemia, unspecified; F32.A Depression, unspecified; M19.90 Unspecified osteoarthritis, unspecified site; F41.9 Anxiety disorder, unspecified; K66.0 Peritoneal adhesions (postprocedural) (postinfection); Z79.899 Other long term (current) drug therapy; Z79.84 Long term (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 oral hypoglycemic drugs; Z79.890 Hormone replacement therapy; Z79.4 Long term (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 insulin; Z90.49 Acquired absence of other specified parts of digestive tract; Z90.89 Acquired absence of other organs; Z90.710 Acquired absence of both cervix and uterus; Z87.442 Personal history of urinary calculi; Z87.440 Personal history of urinary (tract) infections; Z80.1 Family history of malignant neoplasm of trachea, bronchus and lung; Z83.3 Family history of diabetes mellitus; Z82.0 Family history of epilepsy and other diseases of the nervous system; Z88.5 Allergy status to narcotic agent; Z91.040 Latex allergy status
CPT/HCPCS: 36415; 36416; 80048; 85025; 94760; C9113; J1650; J1815; J1885; J2250; J3010; J3480; J3490; S0020

== ENCOUNTER 2021-12-09 13:03 | Outpatient (CLI) | payer MEDICARE, MEDICAID ==
[~2021-12-09 13:03] MED LIST changes: +ISOVUE-370 76%-LOCM 1 ML ONE; -Iopamidol-370 76% 500 ML 1 ML ONE
== END 2021-12-09 13:04 | disposition home or self-care (01) ==
LOC: BICCT 13:03
PROVIDERS: ATTEND Surgery
DX: S30.1XXA Contusion of abdominal wall, initial encounter (principal); E27.8 Other specified disorders of adrenal gland; Z90.710 Acquired absence of both cervix and uterus
CPT/HCPCS: 74177; 82565; Q9966

== ENCOUNTER 2022-01-12 12:01 | Outpatient (CLI) | payer MEDICARE, MEDICAID | END 2022-01-12 12:02 | disposition home or self-care (01) | LOC: BICMAMMO 12:01 | PROVIDERS: ATTEND Registered Nurse Community Health | DX: Z12.31 Encounter for screening mammogram for malignant neoplasm of breast (principal) | CPT/HCPCS: 77063; 77067 ==

== ENCOUNTER 2022-01-12 12:29 | Outpatient (CLI) | payer MEDICARE, OTHER ==
[~2022-01-12 12:29] MED LIST changes: -ISOVUE-370 76%-LOCM 1 ML ONE; +Iopamidol 370 76% 100 ML VIAL ONE
== END 2022-01-12 12:30 | disposition home or self-care (01) ==
LOC: BICCT 12:29 → CT 12:30
PROVIDERS: ATTEND Nurse Practitioner Women's Health
DX: R22.1 Localized swelling, mass and lump, neck (principal); E07.89 Other specified disorders of thyroid
CPT/HCPCS: 70491; Q9967

== ENCOUNTER 2022-01-27 20:39 | Observation (INO) | payer OTHER, MEDICAID ==
[2022-01-27 21:34] LABS: #Basophils 0.1 thou/uL (0.0-0.2); #Eosinphils 0.4 thou/uL (0.0-0.7); #Lymphocytes 4.4 thou/uL (1.20-3.40); #Monocytes 0.8 thou/uL (0.11-0.59); #Neutrophils 9.1 thou/uL (1.40-6.50); %Basophils 0.6 % (0.0-1.0); %Eosinophils 2.8 % (0.0-10.0); %Lymphocytes 29.6 % (21.0-51.0); %Monocytes 5.6 % (0.0-10.0); %Neutrophils 61.4 % (42.0-75.0); Hemoglobin 10.7 g/dL (12.0-16.0); Mean Corpuscular HGB CONC 32.8 g/dL (32.0-36.0); Mean Corpuscular Hemoglobin 28.9 pg (27.0-31.0); Mean Corpuscular Volume 88.1 fL (78.0-98.0); Mean Platelet Volume 7.6 fL (7.4-10.4); Platelet Count 272 thou/uL (130-400); RBC Distribution Width 13.1 % (11.5-14.5); Red Blood Cell (RBC) Count 3.72 mill/uL (4.20-5.40); White Blood Cell (WBC) Count 14.7 thou/uL (4.8-10.8)
[2022-01-27] MEDS ORDERED: Ondansetron PF 4 MG/2 ML Vial ONE (21:48)
[2022-01-27 21:55] LABS: ALT (SGPT) 10 U/L (8-55); AST (SGOT) 12 U/L (5-34); Albumin 3.7 g/dL (3.5-5.0); Alkaline Phosphatase 105 U/L (40-110); Anion Gap 19 mmol/L (10-20); BUN (Urea Nitrogen) 54 mg/dL (9.8-20.1); Bilirubin, Total 0.3 mg/dL (0.2-1.2); Calc. Creatinine Clearance 0 mL/min (70-130); Carbon Dioxide 16 mmol/L (22-29); Chloride 109 mmol/L (98-107); Estimated GFR 11; Globulin 2.9 g/dL (2.4-3.5); Glucose 101 mg/dL (70-105); Lipase 30 U/L (8-78); Potassium 4.8 mmol/L (3.5-5.1); Protein, Total 6.6 g/dL (6.0-8.3); Sodium 139 mmol/L (136-145)
[2022-01-27] MEDS ORDERED: Lorazepam 1 MG TAB ONE (23:54)
[2022-01-27] MEDS ORDERED: Acetaminophen 500 MG TAB ONE (23:55)
[2022-01-27] MEDS ORDERED: Dicyclomine 20 MG TAB ONE (23:55)
[2022-01-28 00:54] LABS: Bilirubin Negative (Negative); Blood, Urine Negative (Negative); Clarity Turbid (Clear); Glucose, Urine (Dipstick) Normal (Negative); Ketone, Urine Negative (Negative); Leukocyte Negative Leu/uL (Negative); Nitrite Negative (Negative); Protein, Urine (Dipstick) 10 mg/dL (Neg-Trace); Specific Gravity, Urine 1.014 (1.002-1.036); Urobilinogen Normal mg/dL (Less than 2)
[2022-01-28 00:55] LABS: Pregnancy Test - Urine (BHCG) Negative (Negative)
[2022-01-28 00:56] LABS: Pregu Control Background? CLEAR/WHITE (CLR/WHITE); Pregu Control Bar Appear? YES (CONTROL BAR); Specific Gravity 1.014 (1.002-1.036)
[2022-01-28] MEDS ORDERED: Ondansetron PF 4 MG/2 ML Vial IVP PRN (03:23)
[2022-01-28] MEDS ORDERED: Bisacodyl 5 MG TAB PO PRN (03:23)
[2022-01-28] MEDS ORDERED: Ondansetron ODT 4 MG TAB PO PRN (03:23)
[2022-01-28] MEDS ORDERED: Senokot S 8.6-50 MG TAB PO PRN (03:23)
[2022-01-28] MEDS ORDERED: Bisacodyl 10 MG SUPP PR PRN (03:23)
[2022-01-28] MEDS ORDERED: Dextrose 50% Abboject 50 ML SYRINGE SLOW IVP PRN (04:11)
[2022-01-28] MEDS ORDERED: HumaLOG 300 UNITS/3 ML VIAL SC PRN (04:11)
[2022-01-28] MEDS ORDERED: Dextrose 5% in Water 1,000 ML IV PRN (04:11)
[2022-01-28] MEDS: Sodium Chloride 0.9% 1,000 ML IV SCH ×3 (04:34→21:39)
[2022-01-28 04:39] LABS: #Eosinphils 0.4 thou/uL (0.0-0.7); #Lymphocytes 4.5 thou/uL (1.20-3.40); #Monocytes 0.7 thou/uL (0.11-0.59); #Neutrophils 6.3 thou/uL (1.40-6.50); %Basophils 0.4 % (0.0-1.0); %Eosinophils 3.7 % (0.0-10.0); %Lymphocytes 37.7 % (21.0-51.0); %Monocytes 5.7 % (0.0-10.0); %Neutrophils 52.5 % (42.0-75.0); Mean Corpuscular Hemoglobin 29.2 pg (27.0-31.0); Mean Corpuscular Volume 88.5 fL (78.0-98.0); Mean Platelet Volume 8.2 fL (7.4-10.4); Platelet Count 226 thou/uL (130-400); RBC Distribution Width 13.3 % (11.5-14.5); Red Blood Cell (RBC) Count 3.41 mill/uL (4.20-5.40)
[2022-01-28 04:47] LABS: ALT (SGPT) 8 U/L (8-55); AST (SGOT) 13 U/L (5-34); Albumin 3.3 g/dL (3.5-5.0); Alcohol Less than 10 mg/dL (Less than 10); Alkaline Phosphatase 96 U/L (40-110); Anion Gap 12 mmol/L (10-20); BUN (Urea Nitrogen) 50 mg/dL (9.8-20.1); Bilirubin, Total 0.3 mg/dL (0.2-1.2); CK (CPK) 70 U/L (29-168); Calc. Creatinine Clearance 0 mL/min (70-130); Calcium 8.2 mg/dL (7.8-10.44); Carbon Dioxide 17 mmol/L (22-29); Chloride 113 mmol/L (98-107); Estimated GFR 14; Globulin 2.3 g/dL (2.4-3.5); Glucose 167 mg/dL (70-105); Potassium 4.7 mmol/L (3.5-5.1); Protein, Total 5.6 g/dL (6.0-8.3); Sodium 137 mmol/L (136-145)
[2022-01-28] MEDS ORDERED: Acetaminophen 325 MG TAB ONE (04:49)
[2022-01-28 04:50] LABS: Troponin I Less than 0.010 ng/mL (< 0.028)
[2022-01-28] MEDS: Acetaminophen 325 MG TAB PO PRN (04:52)
[2022-01-28 07:35] LABS: SARS-CoV-2 NAA Rapid Test Not Detected (NotDetected)
[2022-01-28] MEDS ORDERED: Enoxaparin Sodium 30 MG/0.3 ML SYRINGE SC SCH (09:00)
[2022-01-28] MEDS ORDERED: Sodium Chloride 0.9% 1,000 ML IV SCH (09:30)
[2022-01-28] MEDS ORDERED: HYDROcodone/Acetaminophen 10/325 mg Tablet ONE ×2 (09:49→13:43)
[2022-01-28] MEDS: HYDROcodone/Acetaminophen 10/325 mg Tablet PO PRN ×3 (09:50→19:53)
[2022-01-28] MEDS ORDERED: HumaLOG 300 UNITS/3 ML VIAL ONE (11:14)
[2022-01-28] MEDS: HumaLOG 300 UNITS/3 ML VIAL SC PRN (11:17)
[2022-01-28 11:27] LABS: Amphetamine Not Detected (NotDetected); Barbiturates Screen Not Detected (NotDetected); Benzodiazepine Screen Not Detected (NotDetected); Cocaine Metabolite Screen Detected (NotDetected); Methadone Not Detected (NotDetected); Methamphetamine Not Detected (NotDetected); Opiate Screen Not Detected (NotDetected); Oxycodone Screen Not Detected (NotDetected); Phencyclidine (PCP) Not Detected (NotDetected); THC/Cannabinoid Screen Not Detected (NotDetected); Tricyclic Screen Not Detected (NotDetected)
[2022-01-28 15:39] VITALS: BMI 26.7
[2022-01-28 16:08] LABS: Anion Gap 10 mmol/L (10-20); BUN (Urea Nitrogen) 42 mg/dL (9.8-20.1); Calc. Creatinine Clearance 37 mL/min (70-130); Calcium 8.1 mg/dL (7.8-10.44); Carbon Dioxide 21 mmol/L (22-29); Chloride 112 mmol/L (98-107); Estimated GFR 28; Glucose 168 mg/dL (70-105); Potassium 4.5 mmol/L (3.5-5.1); Sodium 138 mmol/L (136-145)
[2022-01-29] MEDS: HumaLOG 300 UNITS/3 ML VIAL SC PRN ×3 (05:47→16:47)
[2022-01-29] MEDS: Sodium Chloride 0.9% 1,000 ML IV SCH ×3 (05:47→22:07)
[2022-01-29] MEDS: HYDROcodone/Acetaminophen 10/325 mg Tablet PO PRN ×3 (08:13→20:20)
[2022-01-29 10:18] LABS: Anion Gap 12 mmol/L (10-20); BUN (Urea Nitrogen) 26 mg/dL (9.8-20.1); Calc. Creatinine Clearance 66 mL/min (70-130); Calcium 8.1 mg/dL (7.8-10.44); Carbon Dioxide 19 mmol/L (22-29); Chloride 113 mmol/L (98-107); Estimated GFR 55; Glucose 160 mg/dL (70-105); Potassium 4.9 mmol/L (3.5-5.1); Sodium 139 mmol/L (136-145)
[2022-01-29] MEDS: Acetaminophen 325 MG TAB PO PRN (11:27)
[2022-01-29] MEDS: ALPRAZolam 0.25 MG TAB PO PRN (13:37)
[2022-01-30] MEDS: ALPRAZolam 0.25 MG TAB PO PRN ×2 (01:18→11:52)
[2022-01-30 05:23] LABS: Anion Gap 11 mmol/L (10-20); BUN (Urea Nitrogen) 22 mg/dL (9.8-20.1); Calc. Creatinine Clearance 78 mL/min (70-130); Carbon Dioxide 21 mmol/L (22-29); Chloride 110 mmol/L (98-107); Estimated GFR 68; Glucose 179 mg/dL (70-105); Potassium 5.4 mmol/L (3.5-5.1); Sodium 137 mmol/L (136-145)
[2022-01-30] MEDS: Sodium Chloride 0.9% 1,000 ML IV SCH (05:55)
[2022-01-30] MEDS: HYDROcodone/Acetaminophen 10/325 mg Tablet PO PRN (09:17)
[2022-01-30 11:41] VITALS: BP 137/80; TEMP 97.5
[2022-01-30] MEDS ORDERED: Lidocaine 2% Viscous Solution 20 ML, Aluminum & Magnesium Hydroxide 30 ML, Donnatal Eli... SSW SCH (12:45)
[2022-01-30] MEDS ORDERED: Mag-Al 1200 mg/1200 mg/30 ML UDCUP PO SCH (15:15)
== END 2022-01-30 15:37 | disposition home or self-care (01) ==
LOC: ERS 20:39 → ERHOLD 01-28 02:05 → 2SW 01-28 14:16
PROVIDERS: ADMIT Hospitalist; ATTEND Hospitalist
DX: I12.0 Hypertensive chronic kidney disease with stage 5 chronic kidney disease or end stage renal disease (principal); E11.22 Type 2 diabetes mellitus with diabetic chronic kidney disease; N18.5 Chronic kidney disease, stage 5; N17.9 Acute kidney failure, unspecified; D63.1 Anemia in chronic kidney disease; R55 Syncope and collapse; E86.0 Dehydration; Q63.1 Lobulated, fused and horseshoe kidney; E03.9 Hypothyroidism, unspecified; E78.5 Hyperlipidemia, unspecified; I95.9 Hypotension, unspecified; K21.9 Gastro-esophageal reflux disease without esophagitis; E11.10 Type 2 diabetes mellitus with ketoacidosis without coma; I08.1 Rheumatic disorders of both mitral and tricuspid valves; F14.10 Cocaine abuse, uncomplicated; Z79.4 Long term (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 insulin; Z79.84 Long term (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 oral hypoglycemic drugs; Z79.890 Hormone replacement therapy; Z79.899 Other long term (current) drug therapy; Z88.5 Allergy status to narcotic agent; Z91.040 Latex allergy status; Z20.822 Contact with and (suspected) exposure to COVID-19
CPT/HCPCS: 51701; 70450; 71045; 72125; 74176; 80048 ×3; 80053; 80306; 80307; 81003; 81025; 82550; 82962 ×3; 83690; 84484; 85025; 93005; 93306; 93880; 96361; 96374; 97116 ×2; 99285; U0002; 36415; 36416; 84443; G0378; J1815; J2405; J7050

== ENCOUNTER 2022-03-08 08:17 | Outpatient (CLI) | payer OTHER, MEDICAID | END 2022-03-08 08:18 | disposition home or self-care (01) | LOC: NM 08:17 | PROVIDERS: ATTEND Surgery | DX: R10.11 Right upper quadrant pain (principal) | CPT/HCPCS: 78227; A9537 ==

== ENCOUNTER 2022-06-30 08:39 | Outpatient (CLI) | payer OTHER, MEDICAID | END 2022-06-30 08:40 | disposition home or self-care (01) | LOC: ULT 08:39 | PROVIDERS: ATTEND Student in an Organized Health Care Education/Training Program | DX: E07.89 Other specified disorders of thyroid (principal); E04.2 Nontoxic multinodular goiter | CPT/HCPCS: 76536 ==

== ENCOUNTER 2023-04-19 14:02 | Emergency (ER) | payer OTHER, MEDICAID ==
[2023-04-19] MEDS ORDERED: Acetaminophen 500 MG TAB ONE (15:29)
[2023-04-19] MEDS ORDERED: fentaNYL 50 mcg/mL 1 mL Vial ONE (15:30)
[2023-04-19] MEDS ORDERED: Ondansetron PF 4 MG/2 ML Vial ONE (15:30)
[2023-04-19 15:33] LABS: Bacteria/HPF None Seen HPF (None Seen); Bilirubin Negative (Negative); Blood, Urine Negative (Negative); CAUTI Indications for Culture Dysuria,urgency,freq; Clarity Clear (Clear); Glucose, Urine (Dipstick) Greater than 1000 mg/dL (Negative); Ketone, Urine Negative (Negative); Leukocyte 25 Leu/uL (Negative); Nitrite Negative (Negative); Protein, Urine (Dipstick) 10 mg/dL (Neg-Trace); RBC/HPF 0-3 HPF (0-3); Specific Gravity, Urine 1.036 (1.002-1.036); Squamous Epithelial None Seen HPF (0-3); Urobilinogen Normal mg/dL (Less than 2); pH, Urine 5.5 (5.0-9.0)
[2023-04-19 15:35] LABS: Urine Culture Reflex No No
[2023-04-19 16:03] LABS: #Basophils 0.1 thou/uL (0.0-0.2); #Eosinphils 0.1 thou/uL (0.0-0.7); #Monocytes 0.6 thou/uL (0.11-0.59); #Neutrophils 6.1 thou/uL (1.40-6.50); %Basophils 0.8 % (0.0-1.0); %Eosinophils 0.9 % (0.0-10.0); %Lymphocytes 25.2 % (21.0-51.0); %Monocytes 6.3 % (0.0-10.0); %Neutrophils 66.1 % (42.0-75.0); Hematocrit 40.4 % (36.0-47.0); Hemoglobin 13.5 g/dL (12.0-16.0); Mean Corpuscular HGB CONC 33.4 g/dL (32.0-36.0); Mean Corpuscular Volume 86.7 fl (78.0-98.0); Mean Platelet Volume 11.2 fL (7.4-10.4); Platelet Count 236 10x3/uL (130-400); Red Blood Cell (RBC) Count 4.66 mill/uL (4.20-5.40); White Blood Cell (WBC) Count 9.2 10x3/uL (4.8-10.8)
[2023-04-19 16:32] LABS: ALT (SGPT) 18 U/L (8-55); AST (SGOT) 17 U/L (5-34); Albumin 4.6 g/dL (3.5-5.0); Alkaline Phosphatase 140 U/L (40-110); Anion Gap 14 mmol/L (10-20); BUN (Urea Nitrogen) 18 mg/dL (9.8-20.1); Bilirubin, Total 0.4 mg/dL (0.2-1.2); Calc. Creatinine Clearance 0 mL/min (70-130); Calcium 9.2 mg/dL (7.8-10.44); Carbon Dioxide 19 mmol/L (22-29); Chloride 104 mmol/L (98-107); Estimated GFR 47; Globulin 2.6 g/dL (2.4-3.5); Lipase 40 U/L (8-78); Potassium 4.1 mmol/L (3.5-5.1); Protein, Total 7.2 g/dL (6.0-8.3); Sodium 133 mmol/L (136-145)
[2023-04-19 16:38] LABS: Glucose 473 mg/dL (70-105)
[2023-04-19] MEDS ORDERED: Lorazepam 1 MG TAB ONE (17:04)
== END 2023-04-19 17:52 | disposition home or self-care (01) ==
LOC: ERS 14:02
DX: R10.9 Unspecified abdominal pain (principal); N17.9 Acute kidney failure, unspecified; Q60.0 Renal agenesis, unilateral; B37.31 Acute candidiasis of vulva and vagina; E66.9 Obesity, unspecified; E11.9 Type 2 diabetes mellitus without complications; E78.00 Pure hypercholesterolemia, unspecified; E03.9 Hypothyroidism, unspecified
CPT/HCPCS: 74176; 80053; 81001; 83690; 85025; 93005; J3010; 96361; 96374; 96375; J2405

== ENCOUNTER 2023-05-15 12:33 | Outpatient (CLI) | payer OTHER, MEDICAID | END 2023-05-15 12:34 | disposition home or self-care (01) | LOC: ULT 12:33 | PROVIDERS: ATTEND Otolaryngology Otolaryngic Allergy | DX: E04.2 Nontoxic multinodular goiter (principal) | CPT/HCPCS: 76536 ==

== ENCOUNTER 2023-06-13 14:13 | Emergency (ER) | payer MEDICARE, OTHER ==
[2023-06-13 16:10] LABS: #Eosinphils 0.1 thou/uL (0.0-0.7); #Monocytes 0.6 thou/uL (0.11-0.59); #Neutrophils 5.9 thou/uL (1.40-6.50); %Basophils 0.4 % (0.0-1.0); %Eosinophils 0.9 % (0.0-10.0); %Lymphocytes 27.1 % (21.0-51.0); %Monocytes 6.6 % (0.0-10.0); %Neutrophils 64.5 % (42.0-75.0); Hemoglobin 13.1 g/dL (12.0-16.0); Mean Corpuscular HGB CONC 33.6 g/dL (32.0-36.0); Mean Corpuscular Hemoglobin 29.4 pg (27.0-31.0); Mean Corpuscular Volume 87.6 fl (78.0-98.0); Mean Platelet Volume 10.5 fL (7.4-10.4); Platelet Count 264 10x3/uL (130-400); RBC Distribution Width 12.6 % (11.5-14.5); Red Blood Cell (RBC) Count 4.45 mill/uL (4.20-5.40); White Blood Cell (WBC) Count 9.1 10x3/uL (4.8-10.8)
[2023-06-13 16:20] LABS: Bacteria/HPF None Seen HPF (None Seen); Bilirubin Negative (Negative); Blood, Urine 2+ (Negative); CAUTI Indications for Culture Pelvic or flank pain; Clarity Clear (Clear); Glucose, Urine (Dipstick) Greater than 1000 mg/dL (Negative); Ketone, Urine Negative (Negative); Leukocyte 75 Leu/uL (Negative); Nitrite Negative (Negative); Protein, Urine (Dipstick) Negative (Neg-Trace); RBC/HPF 0-3 HPF (0-3); Specific Gravity, Urine 1.039 (1.002-1.036); Squamous Epithelial 0-3 HPF (0-3); Urobilinogen Normal mg/dL (Less than 2)
[2023-06-13 16:27] LABS: Urine Culture Reflex No No
[2023-06-13] MEDS ORDERED: Lorazepam 1 MG TAB ONE (16:27)
[2023-06-13] MEDS ORDERED: traMADol HCl 50 MG TAB ONE (16:27)
[2023-06-13 16:38] LABS: ALT (SGPT) 24 U/L (8-55); AST (SGOT) 16 U/L (5-34); Albumin 4.3 g/dL (3.5-5.0); Alkaline Phosphatase 218 U/L (40-110); Anion Gap 13 mmol/L (10-20); BUN (Urea Nitrogen) 19 mg/dL (9.8-20.1); Bilirubin, Total 0.5 mg/dL (0.2-1.2); Calc. Creatinine Clearance 0 mL/min (70-130); Calcium 9.5 mg/dL (7.8-10.44); Carbon Dioxide 23 mmol/L (22-29); Chloride 101 mmol/L (98-107); Estimated GFR 62; Glucose 381 mg/dL (70-105); Lipase 39 U/L (8-78); Potassium 4.1 mmol/L (3.5-5.1); Protein, Total 7.3 g/dL (6.0-8.3); Sodium 133 mmol/L (136-145)
== END 2023-06-13 17:40 | disposition home or self-care (01) ==
LOC: ERS 14:13
DX: N95.0 Postmenopausal bleeding (principal); R10.9 Unspecified abdominal pain; F41.9 Anxiety disorder, unspecified; E11.9 Type 2 diabetes mellitus without complications; E03.9 Hypothyroidism, unspecified; Z79.899 Other long term (current) drug therapy
CPT/HCPCS: 36415; 80053; 81001; 83690; 85025; 99284

== ENCOUNTER 2023-06-20 13:35 | Inpatient (IN) | payer OTHER, MEDICAID ==
[2023-06-20 15:07] LABS: #Basophils 0.1 thou/uL (0.0-0.2); #Eosinphils 0.1 thou/uL (0.0-0.7); #Monocytes 0.8 thou/uL (0.11-0.59); #Neutrophils 9.1 thou/uL (1.40-6.50); %Basophils 0.5 % (0.0-1.0); %Eosinophils 0.6 % (0.0-10.0); %Neutrophils 78.4 % (42.0-75.0); Hematocrit 38.5 % (36.0-47.0); Hemoglobin 13.1 g/dL (12.0-16.0); Mean Corpuscular Hemoglobin 29.1 pg (27.0-31.0); Mean Corpuscular Volume 85.6 fl (78.0-98.0); Mean Platelet Volume 10.8 fL (7.4-10.4); Platelet Count 219 10x3/uL (130-400); RBC Distribution Width 12.4 % (11.5-14.5); White Blood Cell (WBC) Count 11.6 10x3/uL (4.8-10.8)
[2023-06-20] MEDS ORDERED: LORazepam 2 MG/ML SYR.(CARPUJECT) ONE (15:12)
[2023-06-20] MEDS ORDERED: Morphine 4 MG/ML VIAL ONE ×2 (15:12→17:13)
[2023-06-20] MEDS ORDERED: Ketorolac Tromethamine 30 MG (1 mL) VIAL ONE (15:12)
[2023-06-20] MEDS ORDERED: Ondansetron PF 4 MG/2 ML Vial ONE (15:12)
[2023-06-20] MEDS ORDERED: diphenhydrAMINE 50 MG/ML VIAL ONE (15:12)
[2023-06-20 15:31] LABS: ALT (SGPT) 85 U/L (8-55); AST (SGOT) 122 U/L (5-34); Albumin 4.1 g/dL (3.5-5.0); Alkaline Phosphatase 203 U/L (40-110); Anion Gap 15 mmol/L (10-20); BUN (Urea Nitrogen) 18 mg/dL (9.8-20.1); Bilirubin, Total 0.6 mg/dL (0.2-1.2); Calc. Creatinine Clearance 0 mL/min (70-130); Calcium 9.3 mg/dL (7.8-10.44); Carbon Dioxide 22 mmol/L (22-29); Chloride 99 mmol/L (98-107); Estimated GFR 54; Globulin 3.2 g/dL (2.4-3.5); Lipase 41 U/L (8-78); Potassium 4.3 mmol/L (3.5-5.1); Protein, Total 7.3 g/dL (6.0-8.3); Sodium 132 mmol/L (136-145)
[2023-06-20 15:37] LABS: Glucose 512 mg/dL (70-105)
[2023-06-20 15:53] LABS: Bilirubin Negative (Negative); Blood, Urine 3+ (Negative); CAUTI Indications for Culture Pelvic or flank pain; Clarity Turbid (Clear); Glucose, Urine (Dipstick) Greater than 1000 mg/dL (Negative); Ketone, Urine Negative (Negative); Leukocyte 250 Leu/uL (Negative); Nitrite Negative (Negative); Protein, Urine (Dipstick) 10 mg/dL (Neg-Trace); Squamous Epithelial None Seen HPF (0-3); Urobilinogen Normal mg/dL (Less than 2)
[2023-06-20 16:02] LABS: Bacteria/HPF 1+ HPF (None Seen); WBC/HPF 21-50 HPF (0-3)
[2023-06-20 16:04] LABS: Urine Culture Reflex Yes Yes
[2023-06-20] MEDS ORDERED: Sodium Chloride 0.9% 100 ML ONE (16:54)
[2023-06-20] MEDS ORDERED: cefTRIAXone (ROCEPHIN) 1 GM VIAL ONE (16:54)
[2023-06-20] MEDS ORDERED: Albuterol 200 PUFF (6.7GM INHALER) INH PRN (17:14)
[2023-06-20] MEDS ORDERED: Dextrose 5% in Water 1,000 ML IV PRN (17:17)
[2023-06-20] MEDS ORDERED: Glucagon 1 MG/ML KIT IM PRN (17:17)
[2023-06-20] MEDS ORDERED: Acetaminophen 325 MG TAB PO PRN (17:17)
[2023-06-20] MEDS ORDERED: Dextrose 50% Abboject 50 ML SYRINGE SLOW IVP PRN (17:17)
[2023-06-20] MEDS ORDERED: Ondansetron PF 4 MG/2 ML Vial IVP PRN (17:17)
[2023-06-20 17:28] LABS: HBCM Index 0.08 S/CO (0-0.79); HBSAg Index 0.17 S/CO (0-0.99); Hep A IgM AB Non-Reactive S/CO (NonReactive); Hep A IgM S/CO 0.25 S/CO (0-0.79); Hep B Surf Ag Non-Reactive S/CO (NonReactive); Hep C IgG Ab Non-Reactive S/CO (NonReactive); Hep C Index 0.08 S/CO (0-0.79); Hepatitis B Core IgM Abs Non-Reactive S/CO (NonReactive)
[2023-06-20 18:58] LABS: Lactic Acid 0.8 mmol/L (0.5-2.2)
[2023-06-20] MEDS: rOPINIRole HCl 2 MG TAB PO SCH (19:42)
[2023-06-20] MEDS: Lactated Ringer's 1,000 ML IV SCH (19:42)
[2023-06-20] MEDS: HYDROcodone/Acetaminophen 10/325 mg Tablet PO PRN (19:42)
[2023-06-20] MEDS: Gabapentin 300 MG CAP PO SCH (19:43)
[2023-06-20] MEDS: Insulin Glargine 30 UNITS/0.3 ML VIAL SC SCH (19:44)
[2023-06-20 20:16] VITALS: BMI 21.1
[2023-06-20] MEDS ORDERED: Ketorolac Tromethamine 30 MG (1 mL) VIAL IVP SCH (21:00)
[2023-06-20] MEDS: FLUoxetine HCl 20 MG CAP PO SCH (21:01)
[2023-06-21] MEDS: Morphine 4 MG/ML VIAL SLOW IVP PRN ×7 (00:10→23:45)
[2023-06-21] MEDS: diphenhydrAMINE 25 MG CAP PO PRN ×4 (00:10→20:05)
[2023-06-21] MEDS: HYDROcodone/Acetaminophen 10/325 mg Tablet PO PRN ×2 (02:38→14:52)
[2023-06-21] MEDS: Lactated Ringer's 1,000 ML IV SCH (04:31)
[2023-06-21] MEDS: Levothyroxine Sodium 100 MCG TAB PO SCH (04:32)
[2023-06-21] MEDS: HumaLOG 300 UNITS/3 ML VIAL SC PRN ×2 (05:26→16:49)
[2023-06-21 07:22] LABS: ALT (SGPT) 52 U/L (8-55); AST (SGOT) 38 U/L (5-34); Albumin 3.3 g/dL (3.5-5.0); Alkaline Phosphatase 157 U/L (40-110); Anion Gap 12 mmol/L (10-20); BUN (Urea Nitrogen) 15 mg/dL (9.8-20.1); Bilirubin, Total 0.4 mg/dL (0.2-1.2); Calc. Creatinine Clearance 59 mL/min (70-130); Calcium 8.3 mg/dL (7.8-10.44); Carbon Dioxide 24 mmol/L (22-29); Chloride 104 mmol/L (98-107); Estimated GFR 65; Globulin 2.6 g/dL (2.4-3.5); Glucose 263 mg/dL (70-105); Potassium 3.9 mmol/L (3.5-5.1); Protein, Total 5.9 g/dL (6.0-8.3); Sodium 136 mmol/L (136-145)
[2023-06-21] MEDS: Gabapentin 300 MG CAP PO SCH ×3 (08:08→20:06)
[2023-06-21] MEDS: Lisinopril 5 MG TAB PO SCH (08:08)
[2023-06-21] MEDS: Insulin Glargine 30 UNITS/0.3 ML VIAL SC SCH ×2 (08:09→20:05)
[2023-06-21] MEDS: FLUoxetine HCl 20 MG CAP PO SCH ×2 (08:09→20:06)
[2023-06-21] MEDS ORDERED: Nystatin Cream 15 GM TUBE TOP PRN (10:47)
[2023-06-21] MEDS ORDERED: Polyethylene Glycol 3350 17 GM Packet PO SCH ×2 (11:42→12:00)
[2023-06-21] MEDS ORDERED: Mineral Oil ENEMA PR SCH (11:45)
[2023-06-21] MEDS: cefTRIAXone\\ROCEPHIN 1 GM in Sodium Chloride 0.9% 100 ML IVPB SCH (16:39)
[2023-06-21] MEDS: Polyethylene Glycol 3350 17 GM Packet PO SCH (20:06)
[2023-06-21] MEDS: Atorvastatin Calcium 40 MG TAB PO SCH (20:06)
[2023-06-21] MEDS: rOPINIRole HCl 2 MG TAB PO SCH (20:06)
[2023-06-22] MEDS: Levothyroxine Sodium 100 MCG TAB PO SCH (05:49)
[2023-06-22 07:37] LABS: #Eosinphils 0.1 thou/uL (0.0-0.7); #Monocytes 0.5 thou/uL (0.11-0.59); #Neutrophils 3.8 thou/uL (1.40-6.50); %Basophils 0.4 % (0.0-1.0); %Eosinophils 1.9 % (0.0-10.0); %Lymphocytes 34.3 % (21.0-51.0); %Monocytes 7.1 % (0.0-10.0); %Neutrophils 55.4 % (42.0-75.0); Hematocrit 31.3 % (36.0-47.0); Hemoglobin 10.6 g/dL (12.0-16.0); Mean Corpuscular HGB CONC 33.9 g/dL (32.0-36.0); Mean Corpuscular Hemoglobin 29.7 pg (27.0-31.0); Mean Corpuscular Volume 87.7 fl (78.0-98.0); Mean Platelet Volume 10.1 fL (7.4-10.4); Platelet Count 169 10x3/uL (130-400); RBC Distribution Width 12.4 % (11.5-14.5); Red Blood Cell (RBC) Count 3.57 mill/uL (4.20-5.40); White Blood Cell (WBC) Count 6.9 10x3/uL (4.8-10.8)
[2023-06-22 08:17] LABS: ALT (SGPT) 41 U/L (8-55); AST (SGOT) 28 U/L (5-34); Albumin 3.3 g/dL (3.5-5.0); Alkaline Phosphatase 159 U/L (40-110); Anion Gap 9 mmol/L (10-20); BUN (Urea Nitrogen) 17 mg/dL (9.8-20.1); Bilirubin, Total 0.3 mg/dL (0.2-1.2); Calc. Creatinine Clearance 69 mL/min (70-130); Calcium 8.4 mg/dL (7.8-10.44); Carbon Dioxide 27 mmol/L (22-29); Chloride 104 mmol/L (98-107); Estimated GFR 78; Globulin 2.6 g/dL (2.4-3.5); Glucose 188 mg/dL (70-105); Protein, Total 5.9 g/dL (6.0-8.3); Sodium 136 mmol/L (136-145)
[2023-06-22] MEDS: Insulin Glargine 30 UNITS/0.3 ML VIAL SC SCH ×2 (09:02→21:01)
[2023-06-22] MEDS ORDERED: Bacteriostatic Normal Saline 30 ML VIAL ONE (10:19)
[2023-06-22] MEDS: FLUoxetine HCl 20 MG CAP PO SCH ×2 (10:45→21:03)
[2023-06-22] MEDS: Polyethylene Glycol 3350 17 GM Packet PO SCH ×2 (10:46→21:04)
[2023-06-22] MEDS: Gabapentin 300 MG CAP PO SCH ×3 (10:46→21:02)
[2023-06-22] MEDS: Lisinopril 5 MG TAB PO SCH (10:46)
[2023-06-22] MEDS: Morphine 4 MG/ML VIAL SLOW IVP PRN ×3 (13:10→22:23)
[2023-06-22] MEDS ORDERED: Polyethylene Glycol 3350 17 GM Packet PO SCH (15:30)
[2023-06-22] MEDS: HYDROcodone/Acetaminophen 10/325 mg Tablet PO PRN ×2 (15:30→21:02)
[2023-06-22] MEDS: cefTRIAXone\\ROCEPHIN 1 GM in Sodium Chloride 0.9% 100 ML IVPB SCH (17:13)
[2023-06-22] MEDS: HumaLOG 300 UNITS/3 ML VIAL SC PRN ×2 (17:13→21:00)
[2023-06-22] MEDS: rOPINIRole HCl 2 MG TAB PO SCH (21:02)
[2023-06-22] MEDS: diphenhydrAMINE 25 MG CAP PO PRN (21:03)
[2023-06-22] MEDS: Atorvastatin Calcium 40 MG TAB PO SCH (21:03)
[2023-06-23] MEDS: Morphine 4 MG/ML VIAL SLOW IVP PRN ×2 (02:15→06:22)
[2023-06-23] MEDS: Levothyroxine Sodium 100 MCG TAB PO SCH (06:23)
[2023-06-23] MEDS: Gabapentin 300 MG CAP PO SCH ×3 (08:34→20:26)
[2023-06-23] MEDS: Insulin Glargine 30 UNITS/0.3 ML VIAL SC SCH ×2 (08:34→20:28)
[2023-06-23] MEDS: Polyethylene Glycol 3350 17 GM Packet PO SCH ×2 (08:35→20:27)
[2023-06-23] MEDS: FLUoxetine HCl 20 MG CAP PO SCH ×2 (08:35→20:27)
[2023-06-23] MEDS: Lisinopril 5 MG TAB PO SCH (08:36)
[2023-06-23] MEDS ORDERED: Morphine 2 MG/ML VIAL SLOW IVP PRN (08:40)
[2023-06-23] MEDS: HYDROcodone/Acetaminophen 10/325 mg Tablet PO PRN ×2 (08:40→14:16)
[2023-06-23] MEDS ORDERED: Bisacodyl 10 MG SUPP PR SCH (10:00)
[2023-06-23] MEDS ORDERED: Magnesium Citrate 300 ML BOT PO SCH (10:00)
[2023-06-23] MEDS: Morphine 2 MG/ML VIAL SLOW IVP PRN ×3 (10:51→20:27)
[2023-06-23] MEDS: cefTRIAXone\\ROCEPHIN 1 GM in Sodium Chloride 0.9% 100 ML IVPB SCH (16:47)
[2023-06-23] MEDS: rOPINIRole HCl 2 MG TAB PO SCH (20:27)
[2023-06-23] MEDS: diphenhydrAMINE 25 MG CAP PO PRN (20:27)
[2023-06-23] MEDS: Atorvastatin Calcium 40 MG TAB PO SCH (20:28)
[2023-06-23] MEDS: HumaLOG 300 UNITS/3 ML VIAL SC PRN (20:33)
[2023-06-24] MEDS: Morphine 2 MG/ML VIAL SLOW IVP PRN ×3 (00:22→08:20)
[2023-06-24] MEDS: HYDROcodone/Acetaminophen 10/325 mg Tablet PO PRN (02:26)
[2023-06-24] MEDS: Levothyroxine Sodium 100 MCG TAB PO SCH (05:30)
[2023-06-24] MEDS: Gabapentin 300 MG CAP PO SCH (08:19)
[2023-06-24] MEDS: Polyethylene Glycol 3350 17 GM Packet PO SCH (08:19)
[2023-06-24] MEDS: Lisinopril 5 MG TAB PO SCH (08:19)
[2023-06-24] MEDS: FLUoxetine HCl 20 MG CAP PO SCH (08:19)
[2023-06-24] MEDS: Insulin Glargine 30 UNITS/0.3 ML VIAL SC SCH (08:20)
[2023-06-24] MEDS ORDERED: Nitrofurantoin Monohyd/M-Cryst 100 MG CAP PO SCH (09:00)
[2023-06-24 11:54] VITALS: BP 96/59; TEMP 98
== END 2023-06-24 13:00 | disposition home or self-care (01) | DRG 690 ==
LOC: ERS 13:35 → ERHOLD 17:26 → T4-A 18:28 → OBSVTOIN 06-21 15:21
PROVIDERS: ADMIT Surgery; ATTEND Family Medicine
DX: N39.0 Urinary tract infection, site not specified (principal); K21.9 Gastro-esophageal reflux disease without esophagitis; E03.9 Hypothyroidism, unspecified; E78.5 Hyperlipidemia, unspecified; I10 Essential (primary) hypertension; F31.9 Bipolar disorder, unspecified; E11.65 Type 2 diabetes mellitus with hyperglycemia; R74.01 Elevation of levels of liver transaminase levels; N20.0 Calculus of kidney; K82.8 Other specified diseases of gallbladder; K59.00 Constipation, unspecified; F41.9 Anxiety disorder, unspecified; B96.20 Unspecified Escherichia coli [E. coli] as the cause of diseases classified elsewhere; Z98.890 Other specified postprocedural states; Z90.710 Acquired absence of both cervix and uterus; Z91.040 Latex allergy status; Z79.84 Long term (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 oral hypoglycemic drugs; Z88.6 Allergy status to analgesic agent; Z79.890 Hormone replacement therapy; Z79.899 Other long term (current) drug therapy; Z79.4 Long term (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 insulin; Z90.49 Acquired absence of other specified parts of digestive tract; Z90.89 Acquired absence of other organs
CPT/HCPCS: 36415; 36416; 74176; 76705; 78227; 80053; 80074; 81001; 83605; 83690; 84443; 85025; 87040; 87077; 87086; 87186; 96376; A9537; G0378; J0696; J1200; J1815; J1885; J2060; J2270; J2272; J2405; J3490; J7120

== ENCOUNTER 2023-08-13 13:46 | Outpatient (CLI) | payer MEDICARE, OTHER | END 2023-08-13 13:47 | disposition home or self-care (01) | LOC: BICMAMMO 13:46 | PROVIDERS: ATTEND Registered Nurse Hospice | DX: Z12.31 Encounter for screening mammogram for malignant neoplasm of breast (principal); Z80.3 Family history of malignant neoplasm of breast | CPT/HCPCS: 77063; 77067 ==

== ENCOUNTER 2023-12-11 19:50 | Emergency (ER) | payer MEDICARE, MEDICAID ==
[~2023-12-11 19:50] MED LIST changes: -Iopamidol 370 76% 100 ML VIAL ONE; +Iopamidol-370 76% 500 ML MDV (1 ML CHARGE) ONE
[2023-12-11] MEDS ORDERED: fentaNYL 50 mcg/mL 1 mL Vial ONE (22:29)
[2023-12-11 23:09] LABS: Hematocrit 34.1 % (36.0-47.0); Hemoglobin 11.7 g/dL (12.0-16.0); Mean Corpuscular HGB CONC 34.3 g/dL (32.0-36.0); Mean Corpuscular Volume 87.4 fL (78.0-98.0); Mean Platelet Volume 10.3 fL (7.4-10.4); Platelet Count 249 10x3/uL (130-400); RBC Distribution Width 12.7 % (11.5-14.5)
[2023-12-11 23:28] LABS: ALT (SGPT) 24 U/L (8-55); AST (SGOT) 19 U/L (5-34); Albumin 3.6 g/dL (3.5-5.0); Alkaline Phosphatase 164 U/L (40-110); Anion Gap 18 mmol/L (10-20); BUN (Urea Nitrogen) 25 mg/dL (9.8-20.1); Bilirubin, Total 0.5 mg/dL (0.2-1.2); Calc. Creatinine Clearance 0 mL/min (70-130); Calcium 9.3 mg/dL (7.8-10.44); Carbon Dioxide 21 mmol/L (22-29); Chloride 100 mmol/L (98-107); Estimated GFR 40; Globulin 3.1 g/dL (2.4-3.5); Glucose 269 mg/dL (70-105); Potassium 4.3 mmol/L (3.5-5.1); Protein, Total 6.7 g/dL (6.0-8.3); Sodium 135 mmol/L (136-145)
[2023-12-11 23:33] LABS: Anisocytosis SLIGHT = 6-15 cells HPF (0-5); Band 8 % (5-11); Eosinophils 1 % (0-10); Lymphocytes 9 % (21-51); Macrocytosis SLIGHT = 6-15 cells HPF (0-5); Metamyelocyte 4 % (0-0); Monocytes 6 % (0-10); Myelocyte 1 % (0-0); Neutrophil 70 % (42-75); Platelet Adequacy Comment Platelets Normal; Polychromasia SLIGHT = 2-3 cells HPF (0-2); Smudge Cells 8.1 %
[2023-12-12] MEDS ORDERED: Morphine 4 MG/ML VIAL ONE (00:20)
[2023-12-12] MEDS ORDERED: Ketorolac Tromethamine 30 MG (1 mL) VIAL ONE (00:20)
[2023-12-12 00:35] LABS: Bacteria/HPF None Seen HPF (None Seen); Bilirubin Negative (Negative); Blood, Urine Negative (Negative); CAUTI Indications for Culture Dysuria,urgency,freq; Clarity Clear (Clear); Glucose, Urine (Dipstick) Greater than 1000 mg/dL (Negative); Ketone, Urine Negative (Negative); Leukocyte Negative Leu/uL (Negative); Nitrite Negative (Negative); Protein, Urine (Dipstick) Negative (Neg-Trace); RBC/HPF 0-3 HPF (0-3); Specific Gravity, Urine 1.034 (1.002-1.036); Squamous Epithelial 0-3 HPF (0-3); Urobilinogen Normal mg/dL (Less than 2); WBC/HPF 0-3 HPF (0-3); pH, Urine 5.5 (5.0-9.0)
[2023-12-12 00:42] LABS: Urine Culture Reflex No No
== END 2023-12-12 02:25 | disposition home or self-care (01) ==
LOC: ERS 19:50
DX: R10.9 Unspecified abdominal pain (principal); D72.829 Elevated white blood cell count, unspecified; D64.9 Anemia, unspecified; R94.4 Abnormal results of kidney function studies
CPT/HCPCS: 74177; 80053; 81001; 83605; 85025; 87040; 96361; 96374; 96375; 99284; J1885; J2270; J3010; 36415

== ENCOUNTER 2024-08-04 14:37 | Outpatient (CLI) | payer MEDICARE, MEDICAID | END 2024-08-04 14:38 | disposition home or self-care (01) | LOC: BICRAD 14:37 | PROVIDERS: ATTEND Family Medicine | DX: M25.511 Pain in right shoulder (principal) ==

== ENCOUNTER 2024-08-15 14:06 | Outpatient (CLI) | payer MEDICARE, MEDICAID | END 2024-08-15 14:07 | disposition home or self-care (01) | LOC: BICMAMMO 14:06 | PROVIDERS: ATTEND Registered Nurse Hospice | DX: Z12.31 Encounter for screening mammogram for malignant neoplasm of breast (principal); Z80.3 Family history of malignant neoplasm of breast | CPT/HCPCS: 77063; 77067 ==